=== PATIENT | male | born 1940 | race Caucasian/White ===

== ENCOUNTER 2017-06-06 15:18 | Emergency (ER) | payer OTHER ==
--- OUTSIDE RECORDS SUMMARY | 2017-06-06 15:20 | XMS REPORT | Clinical Summary ---
:1940 Author Organization [facility] Address [address] [place] [address] Care Team Providers Name Role Phone Asked, No Pcp Primary Care Provider Unavailable Allergies No Known Allergies Current Medications Prescription Sig. Disp. Refills Start Date End Date Status losartan-hydrochlorothia Take 1 tablet by Active zide (HYZAAR) 100-12.5 mouth daily. mg per tablet insulin NPH and regular Inject 10 Units Active human (HumuLIN 70/30) under the skin daily 100 unit/mL (70-30) before breakfast. injection insulin NPH and regular Inject 20 Units Active human (HumuLIN 70/30) under the skin. 100 unit/mL (70-30) injection allopurinol (ZYLOPRIM) Take 300 mg by mouth Active 300 MG tablet daily. simvastatin (ZOCOR) 10 Take 10 mg by mouth Active MG tablet nightly. torsemide (DEMADEX) 20 Take 20 mg by mouth Active MG tablet daily. traMADol (ULTRAM) 50 mg Take 50 mg by mouth Active tablet every 6 (six) hours as needed for moderate pain. Active Problems Problem Noted Date Acute decompensated heart failure 08/14/2015 Atrial fibrillation 08/14/2015 Ischemic cardiomyopathy 08/14/2015 Coronary artery disease 08/14/2015 Social History Tobacco Use Types Packs/Day Years Used Date Never Assessed Sex Assigned at Date Recorded Not on file Last Filed Vital Signs Not on file Plan of Treatment Health Maintenance Due Date Last Done Comments SHINGRIX VACCINE (#1) 1988 ZOSTER VACCINE 1998 PNEUMOCOCCAL POLYSACCHARIDE VACCINE AGE 65 AND OVER 11/02/2003 PNEUMOCOCCAL-13 11/02/2003 INFLUENZA VACCINE 09/10/2017 Results Not on fileafter 06/05/2016 Insurance Payer Benefit Plan / Group Subscriber ID Type Phone Address STATE FARM INS STATE FARM INS xxxxxxxxxxxx Commercial MEDICARE MEDICARE PART A AND B xxxxxxxxxx Medicare [place], [place] Home: [phone] [place], [place] [id number]
[2017-06-06 16:24] LABS: Absolute Lymphocytes (CBC) 0.9 K/uL (0.7-4.9); Absolute Monocytes 0.7 K/uL (0.1-1.3); Eosinophils % 5.7 % (0-4.4); Hematocrit 37.7 % (39.6-49.0); Lymphocytes % 23.2 % (15.3-44.8); MCH 30.2 pg (27.0-35.0); MPV 10.4 fL (7.6-11.3); Monocytes % 17.6 % (3.3-12.3); RBC Red Blood Cell Count 4.19 M/uL (4.33-5.43)
[2017-06-06 16:25] LABS: Protime INR 1.48
[2017-06-06 16:30] LABS: Potassium 3.9 mEq/L (3.6-5.0)
[2017-06-06 16:36] LABS: Albumin 3.9 g/dL (3.2-5.5); Bilirubin Direct 0.2 mg/dL (0-0.2); Bilirubin Total 0.8 mg/dL (0.3-1.2); Protein, Total 7.5 g/dL (6.0-8.3)
[2017-06-06 16:39] LABS: CKMB Creatine Kinase MB 3.9 ng/ml (0.3-4.0)
[2017-06-06] MEDS ORDERED: NA CHLORIDE 0.9% 1,000 ML ONE (17:02)
--- NOTE | 2017-06-06 17:49 | RAD REPORT ---
EXAM DESCRIPTION: RAD - Chest Single View - 06/06/2017 3:45 pm CLINICAL HISTORY: Hyperglycemia, diabetes COMPARISON: February 04, 2017 TECHNIQUE: AP portable chest image was obtained 1536 hours . FINDINGS: No peripheral mass or consolidation seen. Lung markings are increased fractionally from th e prior study. No vascular engorgement. Heart size is normal for portable imaging. Pacemaker/defibril lator is in place. Bilateral shoulder prostheses present. No measurable pleural effusion and no pneum othorax. No gross bony abnormality seen. No acute aortic findings suspected. IMPRESSION: Slight increase in the interstitial markings above baseline. Chest findings indicate min imal interstitial edema or infiltrate. No focal mass or consolidation. No significant failure or volume overload.
[2017-06-06 18:29] LABS: Blood Morphology Comment NOT SEEN (NOT SEEN); Platelet Estimate DECR; Urine White Blood Cell Casts OK
[2017-06-06 20:21] LABS: Urine Blood NEGATIVE (NEG); Urine Glucose NEGATIVE (NEG); Urine Protein NEGATIVE (NEG); Urine Specific Gravity 1.015 (1.005-1.030)
[2017-06-06 20:23] LABS: Urine Bacteria <20 /HPF (NONE SEEN); Urine Culture Reflex Order NOT NEEDED; Urine RBC <5 /HPF (NONE SEEN)
[2017-06-06] MEDS ORDERED: FUROSEMIDE 20 MG/ 2ML VIAL ONE (20:34)
--- NOTE | 2017-06-06 20:36 | ER ---
Nurse's Notes [facility] Name: Laureano Valenzuela Age: 76 yrs Sex: Male : 1940 Arrival Date: 06/06/2017 Time: 15:19 Bed 23 Private MD: Diagnosis: Unspecified systolic (congestive) heart failure;Volume depletion;Patient's intentional underdosing of medication regimen Presentation: 06/06 15:20 Presenting complaint: EMS states: States that he has been not feeling well, thirsty, aj1 and having to urinate more often than usual for the past week. FSBS upon EMS arrival was 254. States he has not been checking his blood sugar at home because he ran out of testing strips. Patient is a poor historian, unsure of his medical history other than diabetes and "something with my heart". Transition of care: patient was not received from another setting of care. Onset of symptoms was May 30, 2017. Initial Sepsis Screen: Does the patient meet any 2 criteria? No. Patient's initial sepsis screen is negative. Does the patient have a suspected source of infection? No. Patient's initial sepsis screen is negative. Care prior to arrival: IV initiated. 20 GA, in the right hand, Glucose check: 254. 15:20 Method Of Arrival: EMS: [facility] aj1 15:20 Acuity: [place] 3 aj1 Triage Assessment: 15:28 General: Appears in no apparent distress. comfortable, Behavior is calm, cooperative, aj1 appropriate for age. Pain: Denies pain. Historical: - Allergies: 15:28 Codeine; aj1 15:28 HYDROCODONE; aj1 15:28 Morphine; aj1 15:28 PENICILLINS; aj1 - Home Meds: 19:21 lisinopril 10 mg Oral tab 1 tab once daily [Active]; simvastatin 10 mg Oral tab 1 tab aj1 nightly [Active]; warfarin 3.5 mg Oral once daily [Active]; pantoprazole 40 mg Oral TbEC 1 tab once daily [Active]; Cefuroxime Oral 500 mg twice a day [Active]; allopurinol 300 mg Oral tab 1 tab once daily [Active]; metoclopramide HCl 10 mg Oral tab 1 tab three times a day [Active]; Coreg 25 mg Oral tab 1 tab 2 times per day [Active]; dilaudid pump [Active]; furosemide 40 mg Oral tab 1 tab once daily [Active]; Insulin: Novolin 70/30 Sub-Q 20 units in am and 45 units at night [Active]; - PMHx: 15:28 Back pain; CHF; Chronic pain; COPD; Diabetes - IDDM; Gout; High Cholesterol; aj1 Hypertension; Myocardial infarction; - PSHx: 15:28 pacemaker/defib; Dilaudid pain pump; Appendectomy; shoulder surg; Knee surgery; aj1 - Immunization history:: Adult Immunizations unknown. - Social history:: Smoking status: Patient/guardian denies using tobacco. Screenin:36 Abuse screen: Denies threats or abuse. Denies injuries from another. Nutritional aj1 screening: No deficits noted. Tuberculosis screening: No symptoms or risk factors identified. 20:58 Fall Risk None identified. aj1 Assessment: 15:36 General: Appears in no apparent distress. uncomfortable, Behavior is calm, cooperative. aj1 Pain: Denies pain. Neuro: Level of Consciousness is awake, alert, obeys commands. Cardiovascular: Heart tones S1 S2 present Patient's skin is warm and dry. Respiratory: Airway is patent Respiratory effort is even, unlabored, Respiratory pattern is regular, symmetrical. GI: Abdomen is non-distended, obese. : Reports urinary frequency. EENT: No signs and/or symptoms were reported regarding the EENT system. Derm: No signs and/or symptoms reported regarding the dermatologic system. Skin is pink, warm \\T\\ dry. normal. Musculoskeletal: No signs and/or symptoms reported regarding the musculoskeletal system. Circulation, motion, and sensation intact. 16:10 Reassessment: Patient appears in no apparent distress at this time. No changes from aj1 previously documented assessment. Patient and/or family updated on plan of care and expected duration. Pain level reassessed. Patient is alert, oriented x 3, equal unlabored respirations, skin warm/dry/pink. 17:41 Reassessment: Patient appears in no apparent distress at this time. No changes from aj1 previously documented assessment. Patient and/or family updated on plan of care and expected duration. Pain level reassessed. Patient is alert, oriented x 3, equal unlabored respirations, skin warm/dry/pink. 18:45 Reassessment: Patient and/or family updated on plan of care and expected duration. Pain aj1 level reassessed. General: Appears in no apparent distress. comfortable, Behavior is calm, cooperative. Neuro: Level of Consciousness is awake, alert, obeys commands. Cardiovascular: Patient's skin is warm and dry. Respiratory: Airway is patent Respiratory effort is even, unlabored, Respiratory pattern is regular, symmetrical. Derm: Skin is pink, warm \\T\\ dry. normal. Musculoskeletal: Circulation, motion, and sensation intact. 19:45 Reassessment: Patient appears in no apparent distress at this time. No changes from community hospital previously documented assessment. Patient and/or family updated on plan of care and expected duration. Pain level reassessed. Patient is alert, oriented x 3, equal unlabored respirations, skin warm/dry/pink. 20:58 Reassessment: Patient appears in no apparent distress at this time. No changes from community hospital previously documented assessment. Patient and/or family updated on plan of care and expected duration. Pain level reassessed. Patient is alert, oriented x 3, equal unlabored respirations, skin warm/dry/pink. 21:14 Reassessment: Patient appears in no apparent distress at this time. No changes from community hospital previously documented assessment. Patient and/or family updated on plan of care and expected duration. Pain level reassessed. Patient is alert, oriented x 3, equal unlabored respirations, skin warm/dry/pink. Vital Signs: 15:28 BP 130 / 62; Pulse 76; Resp 17; Temp 98.7(O); Pulse Ox 96% on R/A; Height 5 ft. 9 in. community hospital (175.26 cm); Pain 0/10; 16:09 Weight 103.87 kg; aj1 16:10 BP 131 / 83; Pulse 76; Resp 19; Pulse Ox 95% on R/A; aj1 17:41 BP 138 / 75; Pulse 73; Resp 18; Pulse Ox 96% on R/A; aj1 18:45 BP 148 / 75; Pulse 76; Resp 18; Pulse Ox 95% on R/A; aj1 19:45 BP 145 / 73; Pulse 73; Resp 18; Pulse Ox 96% on R/A; aj1 20:45 BP 151 / 78; Pulse 69; Resp 20; Pulse Ox 95% on R/A; aj1 16:09 Body Mass Index 33.82 (103.87 kg, 175.26 cm) community hospital ED Course: 15:19 Patient arrived in ED. aj1 15:20 Tona Pathak, RN is Primary Nurse. aj1 15:25 Triage completed. aj1 15:28 Arm band placed on. aj1 15:30 Ash[facility] Scrugg[facility]C [facility] snw 15:30 Houston Finn MD is Attending Physician. snw 15:36 Patient has correct armband on for positive identification. Bed in low position. Call aj1 light in reach. Side rails up X 1. 15:36 No provider procedures requiring assistance completed. aj1 15:44 X-ray completed. Portable x-ray completed in exam room. Patient tolerated procedure mh1 well. 15:45 Chest Single View XRAY In Process Unspecified. EDMS 17:44 EKG done, by information technology auditor. reviewed by Ashanti ELLISON. at1 20:58 IV discontinued, intact, bleeding controlled, No redness/swelling at site. Pressure aj1 dressing applied. Administered Medications: 17:20 Drug: NS 0.9% (30 ml/kg) 30 ml/kg Route: IV; Rate: bolus; Site: right antecubital; aj1 20:40 Drug: Lasix 20 mg Route: IVP; Site: right wrist; lorin Point of Care Testing: Blood Glucose: 16:00 Blood Glucose: 252 mg/dL; aj1 19:58 Blood Glucose: 239 mg/dL; aj1 Ranges: Outcome: 20:35 Discharge ordered by MD. snw 21:14 Discharged to home via wheelchair, with family. aj1 21:14 Condition: good 21:14 Discharge instructions given to patient, family, Instructed on discharge instructions, follow up and referral plans. Demonstrated understanding of instructions, follow-up care. 21:15 Patient left the ED. aj1 Signatures: Dispatcher [employer] EDMS Tona Pathak, FENG kinney Ashanti Scruggs FNP-C FNP-Susan Tripathi 1 Мария Camacho RN RN bb gonzales, Amanda, silk top hat body maker EKG Tat1
--- NOTE | 2017-06-06 20:36 | EDPHYS ---
Physician Documentation [facility] Name: Laureano Valenzuela Age: 76 yrs Sex: Male : 1940 Arrival Date: 06/06/2017 Time: 15:19 Bed 23 Private MD: ED Physician Houston Finn HPI: 06/06 17:07 This 76 yrs old Male presents to ER via EMS with complaints of Urinary snw Frequency. 17:07 Onset: The symptoms/episode began/occurred gradually, 1 week(s) ago, and became snw persistent. Associated signs and symptoms: Pertinent positives: polydipsia, polyuria. Modifying factors: the patient symptoms are aggravated by nothing. It is unknown whether or not the patient has had similar symptoms in the past. Dr. Oakes. Historical: - Allergies: 15:28 Codeine; aj1 15:28 HYDROCODONE; aj1 15:28 Morphine; aj1 15:28 PENICILLINS; aj1 - Home Meds: 19:21 lisinopril 10 mg Oral tab 1 tab once daily [Active]; simvastatin 10 mg Oral tab 1 tab aj1 nightly [Active]; warfarin 3.5 mg Oral once daily [Active]; pantoprazole 40 mg Oral TbEC 1 tab once daily [Active]; Cefuroxime Oral 500 mg twice a day [Active]; allopurinol 300 mg Oral tab 1 tab once daily [Active]; metoclopramide HCl 10 mg Oral tab 1 tab three times a day [Active]; Coreg 25 mg Oral tab 1 tab 2 times per day [Active]; dilaudid pump [Active]; furosemide 40 mg Oral tab 1 tab once daily [Active]; Insulin: Novolin 70/30 Sub-Q 20 units in am and 45 units at night [Active]; - PMHx: 15:28 Back pain; CHF; Chronic pain; COPD; Diabetes - IDDM; Gout; High Cholesterol; aj1 Hypertension; Myocardial infarction; - PSHx: 15:28 pacemaker/defib; Dilaudid pain pump; Appendectomy; shoulder surg; Knee surgery; aj1 - Immunization history:: Adult Immunizations unknown. - Social history:: Smoking status: Patient/guardian denies using tobacco. ROS: 17:06 Constitutional: Negative for fever, chills, and weight loss, Eyes: Negative for injury, snw pain, redness, and discharge, ENT: Negative for injury, pain, and discharge, Neck: Negative for injury, pain, and swelling, Cardiovascular: Negative for chest pain, palpitations, and edema, Respiratory: Negative for shortness of breath, cough, wheezing, and pleuritic chest pain, Abdomen/GI: Negative for abdominal pain, nausea, vomiting, diarrhea, and constipation, Back: Negative for injury and pain, MS/Extremity: Negative for injury and deformity, Skin: Negative for injury, rash, and discoloration, Neuro: Negative for headache, weakness, numbness, tingling, and seizure. 17:06 : Positive for urinary frequency, small amounts. Exam: 17:05 Constitutional: This is a well developed, well nourished patient who is awake, alert, snw and in no acute distress. Head/Face: Normocephalic, atraumatic. Eyes: Pupils equal round and reactive to light, extra-ocular motions intact. Lids and lashes normal. Conjunctiva and sclera are non-icteric and not injected. Cornea within normal limits. Periorbital areas with no swelling, redness, or edema. ENT: Nares patent. No nasal discharge, no septal abnormalities noted. Tympanic membranes are normal and external auditory canals are clear. Oropharynx with no redness, swelling, or masses, exudates, or evidence of obstruction, uvula midline. Mucous membranes moist. Neck: Trachea midline, no thyromegaly or masses palpated, and no cervical lymphadenopathy. Supple, full range of motion without nuchal rigidity, or vertebral point tenderness. No Meningismus. Chest/axilla: Normal chest wall appearance and motion. Nontender with no deformity. No lesions are appreciated. Cardiovascular: Regular rate and rhythm with a normal S1 and S2. No gallops, murmurs, or rubs. Normal PMI, no JVD. No pulse deficits. Respiratory: Lungs have equal breath sounds bilaterally, clear to auscultation and percussion. No rales, rhonchi or wheezes noted. No increased work of breathing, no retractions or nasal flaring. Back: No spinal tenderness. No costovertebral tenderness. Full range of motion. Skin: Warm, dry with normal turgor. Normal color with no rashes, no lesions, and no evidence of cellulitis. MS/ Extremity: Pulses equal, no cyanosis. Neurovascular intact. Full, normal range of motion. Neuro: Awake and alert, GCS 15, oriented to person, place, time, and situation. Cranial nerves II-XII grossly intact. Motor strength 5/5 in all extremities. Sensory grossly intact. Cerebellar exam normal. Normal gait. 17:05 Abdomen/GI: Inspection: obese Bowel sounds: normal, Palpation: nontender, in all quadrants, pain pump protrudes from right lateral abdomen. Vital Signs: 15:28 BP 130 / 62; Pulse 76; Resp 17; Temp 98.7(O); Pulse Ox 96% on R/A; Height 5 ft. 9 in. aj1 (175.26 cm); Pain 0/10; 16:09 Weight 103.87 kg; aj1 16:10 BP 131 / 83; Pulse 76; Resp 19; Pulse Ox 95% on R/A; aj1 17:41 BP 138 / 75; Pulse 73; Resp 18; Pulse Ox 96% on R/A; aj1 18:45 BP 148 / 75; Pulse 76; Resp 18; Pulse Ox 95% on R/A; aj1 19:45 BP 145 / 73; Pulse 73; Resp 18; Pulse Ox 96% on R/A; aj1 20:45 BP 151 / 78; Pulse 69; Resp 20; Pulse Ox 95% on R/A; aj1 16:09 Body Mass Index 33.82 (103.87 kg, 175.26 cm) aj1 MDM: 15:30 Patient medically screened. snw 20:37 Data reviewed: vital signs, nurses notes. Data interpreted: Pulse oximetry: on room air snw is 96 %. Interpretation: acceptable. Counseling: I had a detailed discussion with the patient and/or guardian regarding: the historical points, exam findings, and any diagnostic results supporting the discharge/admit diagnosis, the presence of at least one elevated blood pressure reading (>120/80) during this emergency department visit, lab results, radiology results, the need for outpatient follow up, to return to the emergency department if symptoms worsen or persist or if there are any questions or concerns that arise at home. Special discussion: I have referred the patient to see his PCP for further evaluation of high blood pressure. Based on the history and exam findings, there is no indication for further emergent testing or inpatient evaluation. I discussed with the patient/guardian the need to see the primary care provider for further evaluation of the symptoms. 06/06 15:30 Order name: T\T\S; Complete Time: 21:02 06/06 15:30 Order name: Urine Culture [facility] 06/06 15:30 Order name: Urine Microscopic Only; Complete Time: 20:34 06/06 15:30 Order name: Basic Metabolic Panel; Complete Time: 16:40 06/06 15:30 Order name: Blood Culture Adult (2) 06/06 15:30 Order name: BNP; Complete Time: 17:01 06/06 15:30 Order name: CBC with Diff; Complete Time: 18:34 06/06 15:30 Order name: Ckmb; Complete Time: 16:40 06/06 15:30 Order name: CPK; Complete Time: 16:40 06/06 15:30 Order name: Lactate; Complete Time: 16:34 06/06 15:30 Order name: LFT's; Complete Time: 16:40 06/06 15:30 Order name: Procalcitonin; Complete Time: 16:57 06/06 15:30 Order name: Protime (+inr); Complete Time: 16:38 06/06 15:30 Order name: Ptt, Activated; Complete Time: 16:38 06/06 15:30 Order name: Sed Rate; Complete Time: 18:34 06/06 15:30 Order name: Chest Single View XRAY; Complete Time: 18:10 06/06 15:30 Order name: Accucheck; Complete Time: 16:07 06/06 15:30 Order name: Cardiac monitoring; Complete Time: 16:07 06/06 15:30 Order name: EKG - Nurse/Tech; Complete Time: 17:42 06/06 15:30 Order name: IV Saline Lock - Large Bore; Complete Time: 16:07 06/06 15:30 Order name: Labs collected and sent; Complete Time: 16:07 06/06 15:30 Order name: O2 Per Protocol; Complete Time: 16:07 06/06 16:01 Order name: TSH; Complete Time: 17:09 06/06 17:46 Order name: EKG Electrocardiogram EDMS 06/06 18:11 Order name: Troponin (emerg Dept Use Only); Complete Time: 20:34 snw 06/06 18:27 Order name: CBC Smear Scan; Complete Time: 18:34 EDMS 06/06 19:48 Order name: Urine Dipstick--Ancillary (enter results); Complete Time: 20:34 rg2 06/06 21:09 Order name: ABO/RH no charge; Complete Time: 21:31 EDMS 06/06 15:30 Order name: O2 Sat Monitoring; Complete Time: 16:08 snw 06/06 15:30 Order name: Urine Dipstick-Ancillary (obtain specimen); Complete Time: 19:21 snw 06/06 19:11 Order name: FSBS; Complete Time: 19:58 snw 06/06 19:11 Order name: Misc. Order: med list please; Complete Time: 19:33 snw Administered Medications: 17:20 Drug: NS 0.9% (30 ml/kg) 30 ml/kg Route: IV; Rate: bolus; Site: right antecubital; aj1 20:40 Drug: Lasix 20 mg Route: IVP; Site: right wrist; bb Point of Care Testing: Blood Glucose: 16:00 Blood Glucose: 252 mg/dL; aj1 19:58 Blood Glucose: 239 mg/dL; aj1 Ranges: Critical Glucose Levels:Adult <50 mg/dl or >400 mg/dl <40 mg/dl or >180 mg/dl Disposition: 06/06/17 20:35 Discharged to Home. Impression: Unspecified systolic (congestive) heart failure, Volume depletion, Patient's intentional underdosing of medication regimen. - Condition is Stable. - Discharge Instructions: Heart Failure, Dehydration, Adult, Diabetes and Sick Day Management, Form - Daily Weight Record, Rehydration, Adult. - Medication Reconciliation Form, Thank You Letter, Antibiotic Education, Prescription Opioid Use form. - Follow up: Private Physician; When: 2 - 3 days; Reason: Recheck today's complaints, Continuance of care, Re-evaluation by your physician. Follow up: Emergency Department; When: As needed; Reason: Worsening of condition. Addendum: 06/14/2017 20:00 Co-signature as Attending Physician, Houston Finn MD I agree with the assessment and k dr plan of care. Signatures: Dispatcher [employer] EDTona Matta RN RN aj1 Houston Finn MD MD kdr Ashanti Scruggs, PATTERN DUPLICATOR-C PATTERN DUPLICATOR-Csnw Мария Camacho, FENG RN bb Corrections: (The following items were deleted from the chart) 06/06 20:37 20:35 06/06/2017 20:35 Discharged to Home. Impression: Unspecified systolic snw (congestive) heart failure; Volume depletion. Condition is Stable. Forms are Medication Reconciliation Form, Thank You Letter, Antibiotic Education, Prescription Opioid Use. Follow up: Private Physician; When: 2 - 3 days; Reason: Recheck today's complaints, Continuance of care, Re-evaluation by your physician. Follow up: Emergency Department; When: As needed; Reason: Worsening of condition. snw 21:15 20:37 06/06/2017 20:35 Discharged to Home. Impression: Unspecified systolic aj1 (congestive) heart failure; Volume depletion; Patient's intentional underdosing of medication regimen. Condition is Stable. Discharge Instructions: Heart Failure, Dehydration, Adult, Diabetes and Sick Day Management, Form - Daily Weight Record, Rehydration, Adult. Forms are Medication Reconciliation Form, Thank You Letter, Antibiotic Education, Prescription Opioid Use. Follow up: Private Physician; When: 2 - 3 days; Reason: Recheck today's complaints, Continuance of care, Re-evaluation by your physician. Follow up: Emergency Department; When: As needed; Reason: Worsening of condition. snw
[2017-06-06 21:37] VITALS: TEMP 98.7
[2017-06-06 21:43] VITALS: BP 151/78; O2SAT 95
--- NOTE | 2017-06-08 16:16 | EKG ---
Test Date: 2017-06-06 Test Time: 17:37:04 Patient Services Manager: BRUCE MEASUREMENT RESULTS: Intervals: Rate: 72 MT: QRSD: 116 QT: 420 QTc: 459 [place]: P: MT: QRS: 6 T: 91 INTERPRETIVE STATEMENTS: Sinus rhythm Inferior infarct, age undetermined Abnormal ECG Compared to ECG 11/21/2016 22:42:10 T-wave abnormality no longer present Myocardial infarct finding still present Electronically Signed On 06-08-17 16:16:07 CDT by Carlos Manuel Manrique
== END 2017-06-06 21:15 | disposition home or self-care (01) ==
LOC: ER 15:18
DX: I50.20 Unspecified systolic (congestive) heart failure (principal); E11.9 Type 2 diabetes mellitus without complications; E86.9 Volume depletion, unspecified; E78.5 Hyperlipidemia, unspecified; Z91.128 Patient's intentional underdosing of medication regimen for other reason; Z88.6 Allergy status to analgesic agent; Z88.0 Allergy status to penicillin
CPT/HCPCS: 36415; 71045; 80048; 80076; 82550; 82553; 82962 ×2; 83605; 83880; 84145; 84443; 84484; 85025; 85610; 85652; 85730; 86850; 86900; 86901; 87040 ×2; 87086; 87088; 93005; 99284; J1940; J7030; 81003; 81015

== ENCOUNTER 2017-07-13 10:51 | Emergency (ER) | payer OTHER ==
--- OUTSIDE RECORDS SUMMARY | 2017-07-13 10:52 | XMS REPORT | Clinical Summary ---
:1940 Author Organization [facility] Address [address] [place] [address] Care Team Providers Name Role Phone Asked, [...] INFLUENZA VACCINE 09/10/2017 Results Not on fileafter 07/12/2016 Insurance Payer Benefit Plan / Group Subscriber ID Type Phone Address STATE FARM INS STATE FARM INS xxxxxxxxxxxx Commercial MEDICARE MEDICARE PART A AND B xxxxxxxxxx Medicare [place], [place] Home: [phone] [place], [place] [id number]
[2017-07-13 11:30] LABS: Absolute Lymphocytes (CBC) 1.1 K/uL (0.7-4.9); Absolute Monocytes 0.7 K/uL (0.1-1.3); Absolute Neutrophil 4.5 K/uL (1.8-8.0); Eosinophils % 3.3 % (0-4.4); Hematocrit 40.2 % (39.6-49.0); Lymphocytes % 16.2 % (15.3-44.8); MCH 29.9 pg (27.0-35.0); MPV 10.2 fL (7.6-11.3); Monocytes % 10.3 % (3.3-12.3); RBC Red Blood Cell Count 4.42 M/uL (4.33-5.43)
[2017-07-13 11:42] LABS: Bilirubin Direct 0.4 mg/dL (0-0.2); Bilirubin Total 1.1 mg/dL (0.3-1.2); Protein, Total 8.8 g/dL (6.0-8.3)
[2017-07-13 11:59] LABS: CKMB Creatine Kinase MB 2.4 ng/ml (0.3-4.0)
--- NOTE | 2017-07-13 13:18 | RAD REPORT ---
EXAM DESCRIPTION: CT - Stone Protocol - 07/13/2017 12:19 pm CLINICAL HISTORY: Abdominal pain. For 4 days COMPARISON: 2014 TECHNIQUE: Computed axial tomography of the abdomen pelvis was obtained without oral or IV contrast. Lack of IV and oral contrast limits evaluation of solid organs, bowel, and vessels. Coronal reformat gabby images were obtained and reviewed. All CT scans are performed using dose optimization technique as appropriate and may include automated exposure control or mA/KV adjustment according to patient size. FINDINGS: A renal calculus is not seen. An ureteral calculus is not noted. A bladder calculus is not present. Small renal cysts are suspected The most superior slice demonstrates a 5 millimeter right lower lobe nodule. The liver, spleen, pancreas and adrenals appear grossly normal Diverticula stem from the colon. Mild stranding is present adjacent to the distal descending colon. A tiny umbilical hernia is present. A neurostimulator device is in place Spondylosis involves lumbar spine resulting in spinal stenosis IMPRESSION: Negative for a genitourinary calculus Mild descending diverticulitis Per Fleischner guidelines followup CT chest in 6-12 months is recommended
--- NOTE | 2017-07-13 14:21 | ER ---
Nurse's Notes [facility] Name: Laureano Valenzuela Age: 76 yrs Sex: Male : 1940 Arrival Date: 07/13/2017 Time: 10:56 Bed 18 Private MD: Diagnosis: Diverticulitis of intestine, part unspecified, without perforation or abscess without bleeding Presentation: 07/13 10:57 Presenting complaint: EMS states: called out for abd pain that started 4 days ago, em denies N/V, fever, given 50 mcg fentanyl IV. Transition of care: patient was not received from another setting of care. Onset of symptoms was July 09, 2017. Risk Assessment: Do you want to hurt yourself or someone else? Patient reports no desire to harm self or others. Initial Sepsis Screen: Does the patient meet any 2 criteria? No. Patient's initial sepsis screen is negative. Does the patient have a suspected source of infection? No. Patient's initial sepsis screen is negative. Care prior to arrival: Medication(s) given: Fentanyl 50 mcg. 10:57 Method Of Arrival: EMS em 10:57 Acuity: [place] 3 ss Historical: - Allergies: 11:02 Codeine; em 11:02 HYDROCODONE; em 11:02 Morphine; em 11:02 PENICILLINS; em - Home Meds: 11:02 allopurinol 300 mg Oral tab 1 tab once daily [Active]; Cefuroxime Oral 500 mg twice a em day [Active]; Coreg 25 mg Oral tab 1 tab 2 times per day [Active]; dilaudid pump [Active]; furosemide 40 mg Oral tab 1 tab once daily [Active]; Insulin: Novolin 70/30 Sub-Q 20 units in am and 45 units at night [Active]; lisinopril 10 mg Oral tab 1 tab once daily [Active]; metoclopramide HCl 10 mg Oral tab 1 tab three times a day [Active]; pantoprazole 40 mg Oral TbEC 1 tab once daily [Active]; simvastatin 10 mg Oral tab 1 tab nightly [Active]; warfarin 3.5 mg Oral once daily [Active]; - PMHx: 11:02 Back pain; CHF; Chronic pain; COPD; Gout; Diabetes - IDDM; High Cholesterol; em Hypertension; Myocardial infarction; - Immunization history:: Adult Immunizations up to date. - Social history:: Smoking status: Patient/guardian denies using tobacco. - Ebola Screening: : No symptoms or risks identified at this time. Screenin:07 Abuse screen: Denies threats or abuse. Nutritional screening: No deficits noted. em Tuberculosis screening: No symptoms or risk factors identified. Fall Risk None identified. Assessment: 11:11 General: Appears in no apparent distress. uncomfortable, Behavior is calm, cooperative. em Pain: Complains of pain in left lower quadrant Pain currently is 8 out of 10 on a pain scale. Pain began 4 days ago. Neuro: Level of Consciousness is awake, alert, obeys commands, Oriented to person, place, time, situation. Cardiovascular: Capillary refill < 3 seconds Patient's skin is warm and dry. Respiratory: Airway is patent Respiratory effort is even, unlabored, Respiratory pattern is regular, symmetrical. GI: Abdomen is flat, Bowel sounds present X 4 quads. Abd is soft X 4 quads Abdomen is tender to palpation in left lower quadrant. : No signs and/or symptoms were reported regarding the genitourinary system. EENT: No signs and/or symptoms were reported regarding the EENT system. Derm: Skin is intact, Skin is pink, warm \T\ dry. Musculoskeletal: Range of motion: intact in all extremities. 11:15 General: The previous assessment is accurate, call light remains within reach. . ss 12:13 Reassessment: Patient appears in no apparent distress at this time. Patient and/or em family updated on plan of care and expected duration. Pain level reassessed. Patient is alert, oriented x 3, equal unlabored respirations, skin warm/dry/pink. wheeled to CT via stretcher. 13:56 Reassessment: Patient appears in no apparent distress at this time. Patient and/or em family updated on plan of care and expected duration. Pain level reassessed. Patient is alert, oriented x 3, equal unlabored respirations, skin warm/dry/pink. family at bedside. 14:07 Reassessment: Patient appears in no apparent distress at this time. Patient and/or em family updated on plan of care and expected duration. Pain level reassessed. Patient is alert, oriented x 3, equal unlabored respirations, skin warm/dry/pink. Vital Signs: 11:04 BP 140 / 71; Pulse 80; Resp 16; Temp 98.0(O); Pulse Ox 95% on R/A; em 12:00 BP 122 / 71; Pulse 71; Resp 16; Pulse Ox 94% on R/A; em 13:21 BP 128 / 68; Pulse 78; Resp 15; Pulse Ox 95% on R/A; em 14:15 BP 133 / 74; Pulse 76; Resp 14; Pulse Ox 99% on R/A; Pain 2/10; em ED Course: 10:56 Patient arrived in ED. em 11:01 Ashanti Scruggs FNP-C is PHCP. snw 11:01 Nasir Barba MD is Attending Physician. snw 11:03 Arm band placed on. em 11:04 Patient has correct armband on for positive identification. Placed in gown. Bed in low em position. Call light in reach. Side rails up X 1. 11:05 Mau Sood LVN is Primary Nurse. em 11:07 PHCP role handed off by Ashanti Scruggs FNP-C [facility] 11:07 Mckinley Rollins PA is PHCP. jm 11:08 No provider procedures requiring assistance completed. Maintain EMS IV. Dressing em intact. Good blood return noted. Site clean \T\ dry. Gauge \T\ site: 20 RAC. 11:44 Triage completed. ss 12:19 CT Stone Protocol In Process Unspecified. EDMS 12:19 CT completed. Patient tolerated procedure well. Patient moved back from CT. bq 14:20 Addison Oakes MD is Referral Physician. [facility] 14:27 IV discontinued, intact, bleeding controlled, No redness/swelling at site. Pressure em dressing applied. Administered Medications: No medications were administered Outcome: 14:20 Discharge ordered by . [facility] 14:28 Discharged to home via wheelchair. em 14:28 Condition: good 14:28 Discharge instructions given to patient, Instructed on discharge instructions, follow up and referral plans. medication usage, Demonstrated understanding of instructions, follow-up care, medications, Prescriptions given X 2. 14:31 Patient left the ED. em Signatures: Dispatcher [employer] EDMS Ashanti Scruggs FNP-C FNP-Csnw Mckinley Rollins PA PA [facility] Hawa Boudreaux Mau Sood LVN LVN em Smirch, Keerthi, RN RN ss
--- NOTE | 2017-07-13 14:21 | EDPHYS ---
Physician Documentation [facility] Name: Laureano Valenzuela Age: 76 yrs Sex: Male : 1940 Arrival Date: 07/13/2017 Time: 10:56 Bed 18 Private MD: ED Physician Nasir Barba HPI: 07/13 11:12 This 76 yrs old Male presents to ER via EMS with complaints of abdominal pain.jmm 11:12 The patient presents with abdominal pain in the left lower quadrant. Onset: The [facility] symptoms/episode began/occurred gradually, 4 day(s) ago. The symptoms do not radiate. Associated signs and symptoms: Pertinent negatives: nausea and vomiting, chest pain, diarrhea. The symptoms are described as achy. Modifying factors: The symptoms are alleviated by nothing, the symptoms are aggravated by. This is a 76 year old male with a hx of heart failure, DM, HTN that presents to the ED with left lower abdominal pain beginning approx 4 days ago. Patient denies fever, vomiting, diarrhea. Patient denies chest pain. Denies previous episodes. . Historical: - Allergies: 11:02 Codeine; em 11:02 HYDROCODONE; em 11:02 Morphine; em 11:02 PENICILLINS; em - Home Meds: 11:02 allopurinol 300 mg Oral tab 1 tab once daily [Active]; Cefuroxime Oral 500 mg twice a em day [Active]; Coreg 25 mg Oral tab 1 tab 2 times per day [Active]; dilaudid pump [Active]; furosemide 40 mg Oral tab 1 tab once daily [Active]; Insulin: Novolin 70/30 Sub-Q 20 units in am and 45 units at night [Active]; lisinopril 10 mg Oral tab 1 tab once daily [Active]; metoclopramide HCl 10 mg Oral tab 1 tab three times a day [Active]; pantoprazole 40 mg Oral TbEC 1 tab once daily [Active]; simvastatin 10 mg Oral tab 1 tab nightly [Active]; warfarin 3.5 mg Oral once daily [Active]; - PMHx: 11:02 Back pain; CHF; Chronic pain; COPD; Gout; Diabetes - IDDM; High Cholesterol; em Hypertension; Myocardial infarction; - Immunization history:: Adult Immunizations up to date. - Social history:: Smoking status: Patient/guardian denies using tobacco. - Ebola Screening: : No symptoms or risks identified at this time. ROS: 11:12 Constitutional: Negative for fever, chills, and weight loss. [facility] 11:12 Back: Negative for injury and pain. 11:12 Cardiovascular: Negative for chest pain. 11:12 Respiratory: Negative for shortness of breath. 11:12 Abdomen/GI: Positive for abdominal pain, Negative for nausea and vomiting. 11:12 Neuro: Negative for weakness. 11:12 All other systems are negative. Exam: 11:12 Head/Face: atraumatic. [facility] 11:12 Constitutional: The patient appears alert, awake. 11:12 Cardiovascular: Rate: normal, Rhythm: regular. 11:12 Respiratory: the patient does not display signs of respiratory distress, Respirations: normal, Breath sounds: are clear throughout. 11:12 Abdomen/GI: Inspection: distension, that is moderate, Bowel sounds: normal, Palpation: soft, moderate abdominal tenderness, in the left lower quadrant. 11:12 Skin: Appearance: Color: normal in color, Temperature: normal temperature, Moisture: normal moisture. 11:12 Neuro: Orientation: is normal, Mentation: is normal, Memory: is normal. Vital Signs: 11:04 BP 140 / 71; Pulse 80; Resp 16; Temp 98.0(O); Pulse Ox 95% on R/A; em 12:00 BP 122 / 71; Pulse 71; Resp 16; Pulse Ox 94% on R/A; em 13:21 BP 128 / 68; Pulse 78; Resp 15; Pulse Ox 95% on R/A; em 14:15 BP 133 / 74; Pulse 76; Resp 14; Pulse Ox 99% on R/A; Pain 2/10; em MDM: 11:08 Patient medically screened. [facility] 11:12 Differential diagnosis: AAA, diverticulitis, myocardia ischemia or infarction, [facility] Peritonitis, colitis, gastroenteritis. Data reviewed: vital signs, nurses notes. 13:30 Data reviewed: lab test result(s), EKG, radiologic studies, CT scan. [facility] 13:34 Data reviewed: radiologic studies, CT scan. [facility] 13:34 ED course: The patient is currently alert and non toxic in appearance in the ED. The [facility] patient declined admission. Patient will be prescribed oral antibiotics and stated he will follow up with Dr. Oakes tomorrow for reevaluation. The patient is otherwise given return precautions. Patient understood and agrees with the plan of care.. 07/13 11:03 Order name: Amylase, Serum; Complete Time: 11:59 [facility] 07/13 11:03 Order name: Basic Metabolic Panel; Complete Time: 11:59 [facility] 07/13 11:03 Order name: CBC with Diff; Complete Time: 11:59 [facility] 07/13 11:03 Order name: Creatinine for Radiology; Complete Time: 11:59 [facility] 07/13 11:03 Order name: Hepatic Function; Complete Time: 11:59 [facility] 07/13 11:03 Order name: Lipase; Complete Time: 11:59 [facility] 07/13 11:03 Order name: IV Saline Lock; Complete Time: 11: [facility] 07/13 11:03 Order name: Labs collected and sent; Complete Time: 11: [facility] 07/13 11:03 Order name: Blood Culture Adult (2) [facility] 07/13 11:11 Order name: Troponin (emerg Dept Use Only); Complete Time: 11:59 [facility] 07/13 11:11 Order name: CPK; Complete Time: 12:01 [facility] 07/13 11:11 Order name: Ckmb; Complete Time: 12:01 [facility] 07/13 12:00 Order name: CT Stone Protocol; Complete Time: 13:34 [facility] 07/13 11:12 Order name: EKG - Nurse/Tech; Complete Time: 11:30 jm Administered Medications: No medications were administered Disposition: 07/13/17 14:20 Discharged to Home. Impression: Diverticulitis of intestine, part unspecified, without perforation or abscess without bleeding. - Condition is Stable. - Prescriptions for Flagyl 500 mg Oral Tablet - take 1 tablet by ORAL route every 6 hours for 10 days; 40 tablet. Keflex 500 mg Oral Capsule - take 1 capsule by ORAL route every 12 hours for 10 days; 20 capsule. - Medication Reconciliation Form, Thank You Letter, Antibiotic Education, Prescription Opioid Use form. - Follow up: Addison Oakes MD; When: Tomorrow; Reason: Re-evaluation by your physician. - Notes: Please follow up with Dr. Oakes tomorrow for reevaluation. Please return to the ED if you develop increased abdominal pain, vomiting, fever, or any other concerning symptoms. Addendum: 07/17/2017 07:32 Co-signature as Attending Physician, Nasir Barba MD. g s Signatures: Dispatcher [employer] EDAshanti Angeles, DIAL SCREW ASSEMBLER-C DIAL SCREW ASSEMBLER-Csnw Mckinley Rollins PA PA Mau Verma, MAIL DISTRIBUTOR MAIL DISTRIBUTOR em Nasir Barba MD MD Corrections: (The following items were deleted from the chart) 07/13 14:08 11:03 Urine Dipstick-Ancillary ordered. [facility] em 14:31 14:20 07/13/2017 14:20 Discharged to Home. Impression: Diverticulitis of intestine, em part unspecified, without perforation or abscess without bleeding. Condition is Stable. Forms are Medication Reconciliation Form, Thank You Letter, Antibiotic Education, Prescription Opioid Use. Follow up: Addison Oakes; When: Tomorrow; Reason: Re-evaluation by your physician. kala
[2017-07-13 14:42] VITALS: TEMP 98
[2017-07-13 14:46] VITALS: BP 133/74; O2SAT 99
--- NOTE | 2017-07-14 07:38 | EKG ---
Test Date: 2017-07-13 Test Time: 11:37:01 Waste Elimination: DENISSE MEASUREMENT RESULTS: Intervals: Rate: 72 UT: 254 QRSD: 108 QT: 422 QTc: 462 [place]: P: -19 UT: 254 QRS: -9 T: 103 INTERPRETIVE STATEMENTS: Atrial-paced rhythm with prolonged AV conduction with occasional premature ventricular complexes Inferior infarct, age undetermined Abnormal ECG Compared to ECG 06/06/2017 17:37:04 Ventricular premature complex(es) now present Sinus rhythm no longer present Electronically Signed On 07-14-17 07:37:28 CDT by Carlos Manuel Manrique
== END 2017-07-13 14:31 | disposition home or self-care (01) ==
LOC: ER 10:51
DX: K57.92 Diverticulitis of intestine, part unspecified, without perforation or abscess without bleeding (principal); I10 Essential (primary) hypertension; E11.9 Type 2 diabetes mellitus without complications; I50.9 Heart failure, unspecified; J44.9 Chronic obstructive pulmonary disease, unspecified; I25.2 Old myocardial infarction; Z79.01 Long term (current) use of anticoagulants; Z79.4 Long term (current) use of insulin; Z88.0 Allergy status to penicillin; Z88.5 Allergy status to narcotic agent; Z88.6 Allergy status to analgesic agent
CPT/HCPCS: 36415; 74176; 76377; 80048; 80076; 82150; 82550; 82553; 83690; 84484; 85025; 87040; 93005; 99284

== ENCOUNTER 2017-07-21 11:00 | Inpatient (IN) | payer OTHER ==
--- OUTSIDE RECORDS SUMMARY | 2017-07-21 11:02 | XMS REPORT | Clinical Summary ---
:1940 Author Organization [facility] Address [address] [place] [address] Care Team Providers Name Role Phone Asked, [...] INFLUENZA VACCINE 09/10/2017 Results Not on fileafter 07/20/2016 Insurance Payer Benefit Plan / Group Subscriber ID Type Phone Address [employer] FARM INS [employer]ARM INS xxxxxxxxxxxx Commercial MEDICARE MEDICARE PART A AND B xxxxxxxxxx Medicare [place], [place] Home: [phone] [place], [place] [id number]
--- NOTE | 2017-07-21 12:23 | RAD REPORT ---
EXAM DESCRIPTION: CT - Head Brain Wo Cont - 07/21/2017 11:57 am CLINICAL HISTORY: Weakness, lethargy, transient alteration of awareness COMPARISON: CT study June 2017 TECHNIQUE: Axial 5 mm thick images of the head were obtained without IV contrast. All CT scans are performed using dose optimization technique as appropriate and may include automated exposure control or mA/KV adjustment according to patient size. FINDINGS: No intracranial hemorrhage, mass, edema or shift of mid-line structures. No acute cortical based infarction identified. No cortical edema or sulcal effacement. Moderate atrophy and mild to mo derate chronic ischemic changes are present. Ventricular size is in proportion. Physiologic and arter ial calcifications are present. No abnormal extra-axial fluid collections. Intracranial findings are not significantly different since the early June study. Mastoid air cells and visualized portions of the paranasal sinuses are clear. No acute bony findings. IMPRESSION: No hemorrhage or acute intracranial finding. Moderate atrophy and mild to moderate chronic ischemic change similar to June 11, 2017 exam.
[2017-07-21 13:19] LABS: Absolute Lymphocytes (CBC) 1.1 K/uL (0.7-4.9); Absolute Monocytes 0.8 K/uL (0.1-1.3); Absolute Neutrophil 14.2 K/uL (1.8-8.0); Basophils % 0.4 % (0-1.3); Eosinophils % 0.1 % (0-4.4); Hematocrit 36.9 % (39.6-49.0); Lymphocytes % 6.7 % (15.3-44.8); MCH 29.5 pg (27.0-35.0); MCV 91.4 fL (80-100); MPV 10.2 fL (7.6-11.3); Monocytes % 4.7 % (3.3-12.3); RBC Red Blood Cell Count 4.03 M/uL (4.33-5.43)
[2017-07-21 13:27] LABS: Protime INR 3.35
[2017-07-21 13:36] LABS: Potassium 5.2 mEq/L (3.6-5.0)
[2017-07-21 13:45] LABS: Albumin 3.7 g/dL (3.2-5.5); Bilirubin Direct 0.2 mg/dL (0-0.2); Bilirubin Total 0.6 mg/dL (0.3-1.2); CKMB Creatine Kinase MB 4.5 ng/ml (0.3-4.0); Magnesium 1.8 mg/dL (1.8-2.5)
[2017-07-21] MEDS ORDERED: INSULIN -REGULAR HUMAN 50 UNIT/0.5 ML ML ONE (13:52)
[2017-07-21 14:14] LABS: Urine Blood NEGATIVE (NEG); Urine Glucose NEGATIVE (NEG); Urine Protein NEGATIVE (NEG); Urine Specific Gravity 1.015 (1.005-1.030)
[2017-07-21 14:24] LABS: Urine Bacteria <20 /HPF (NONE SEEN); Urine Culture Reflex Order NOT NEEDED; Urine RBC <5 /HPF (NONE SEEN)
--- NOTE | 2017-07-21 15:13 | RAD REPORT ---
EXAM DESCRIPTION: RAD - Chest Single View - 07/21/2017 1:34 pm CLINICAL HISTORY: Weakness, shortness of breath COMPARISON: June 06 TECHNIQUE: AP portable chest image was obtained 1327 hours . FINDINGS: No peripheral mass, consolidation or failure finding. Interstitial markings are prominent but not clearly different. Pacemaker/defibrillator remains in place. Heart and vasculature are normal . No measurable pleural effusion and no pneumothorax. No acute bone finding. Bilateral shoulder joint prostheses are in place. No acute aortic findings suspected. IMPRESSION: No acute cardiopulmonary process. The above detailed chest findings are stable from comparison.
[2017-07-21 15:42] LABS: Blood Morphology Comment NOT SEEN (NOT SEEN)
[2017-07-21 15:43] LABS: Platelet Estimate ADEQ; Urine White Blood Cell Casts OK
--- NOTE | 2017-07-21 16:10 | EKG ---
Test Date: 2017-07-21 Test Time: 11:41:22 Public Health Professor: BRUEC MEASUREMENT RESULTS: Intervals: Rate: 75 VT: 196 QRSD: 114 QT: 412 QTc: 460 [place]: P: -2 VT: 196 QRS: -12 T: 98 INTERPRETIVE STATEMENTS: Normal sinus rhythm Inferior infarct, age undetermined Possible Anterolateral infarct, age undetermined Abnormal ECG Compared to ECG 07/13/2017 11:37:01 Ventricular premature complex(es) no longer present Atrial-paced complex(es) or rhythm no longer present Myocardial infarct finding still present Electronically Signed On 07-21-17 16:09:13 CDT by Carlos Manuel Manrique
--- NOTE | 2017-07-21 17:00 | ER ---
Nurse's Notes [facility] Name: Laureano Valenzuela Age: 76 yrs Sex: Male : 1940 Arrival Date: 07/21/2017 Time: 11:09 Bed 13 Private MD: Diagnosis: Hyperglycemia, unspecified;Weakness;Dehydration Presentation: 07/21 11:16 Presenting complaint: EMS states: increased weakness/ lethargy since this morning. Also ss family reports high blood sugar of 456 then continued to give him his regular dose of insulin. Pt appears drowsy. Arouses easily with verbal stimuli. Hydromorphone pump in place. Transition of care: patient was not received from another setting of care. Onset of symptoms is unknown. Risk Assessment: Do you want to hurt yourself or someone else? Patient reports no desire to harm self or others. Initial Sepsis Screen: Does the patient meet any 2 criteria? Altered Mental Status. Does the patient have a suspected source of infection? No. Patient's initial sepsis screen is negative. Care prior to arrival: Medication(s) given: Normal saline infusion, 500 mL, IV initiated. 20 GA, in the left wrist, Glucose check: 456. 11:16 Method Of Arrival: [facility] 11:16 Acuity: [place] 2 ss Historical: - Allergies: 11:19 Codeine; ss 11:19 HYDROCODONE; ss 11:19 Morphine; ss 11:19 PENICILLINS; ss - PMHx: 11:19 Back pain; CHF; Chronic pain; COPD; Diabetes - IDDM; High Cholesterol; Gout; ss Hypertension; Myocardial infarction; - Immunization history:: Adult Immunizations unknown. - Social history:: Smoking status: Patient/guardian denies using tobacco. - Ebola Screening: : No symptoms or risks identified at this time. Screenin:48 Abuse screen: Denies threats or abuse. Denies injuries from another. Nutritional ph screening: No deficits noted. Tuberculosis screening: No symptoms or risk factors identified. Fall Risk No fall in past 12 months (0 pts). Secondary diagnosis (15 points) impaired mobility, IV access (20 points). Ambulatory Aid- None/Bed Rest/Nurse Assist (0 pts). Gait- Impaired (20 pts.). Mental Status- Oriented to own ability (0 pts). Total Rey Fall Scale indicates High Risk Score (45 or more points). Fall prevention measures have been instituted. Side Rails Up X 2 Placed Close to Nursing Station Frequent Obs/Assessments Occuring As available patient and family educated on Fall Prevention Program and Strategies. Assessment: 11:30 General: Appears in no apparent distress. comfortable, Behavior is calm, cooperative, ph drowsy, Denies fever, feeling ill. Pain: Complains of pain in back. Neuro: Level of Consciousness is obeys commands, lethargic, Oriented to person, place, time, situation, Denies weakness dizziness. Cardiovascular: Denies chest pain, shortness of breath, Capillary refill < 3 seconds in bilateral fingers Patient's skin is warm and dry. Respiratory: Airway is patent Respiratory effort is even, unlabored, Respiratory pattern is regular, symmetrical. GI: No signs and/or symptoms were reported involving the gastrointestinal system. Patient currently denies abdominal pain, diarrhea, nausea, vomiting. Derm: Skin is intact, is fragile, is thin, Skin is pink, warm \\T\\ dry. Musculoskeletal: Circulation, motion, and sensation intact. 12:35 Reassessment: Patient appears in no apparent distress at this time. Patient and/or family updated on plan of care and expected duration. Pain level reassessed. Pt drowsy but awakens easily to verbal stimuli, oriented x 3, placed on bedpan for BM. 12:45 Reassessment: Patient appears in no apparent distress at this time. radiology at bedside for CXR, pt remains on bedpan, states, " It takes me a long time to poop." radiology to will return for CXR after pt completes BM. 13:30 Reassessment: Patient appears in no apparent distress at this time. No changes from previously documented assessment. Patient and/or family updated on plan of care and expected duration. Pain level reassessed. bedpan removed for CXR, no BM noted. 14:20 Reassessment: Patient appears in no apparent distress at this time. No changes from previously documented assessment. Patient and/or family updated on plan of care and expected duration. Pain level reassessed. Pt straight cathed to obtain urine sample, approx 1 L drained from bladder, pt tolerated well. 15:42 Reassessment: Patient appears in no apparent distress at this time. Patient and/or family updated on plan of care and expected duration. Pain level reassessed. Pt had BM in bedpan, brown, soft and normal in appearance, pt cleaned and placed in brief, awaiting room assignment. 17:17 Reassessment: Patient appears in no apparent distress at this time. Patient and/or ph family updated on plan of care and expected duration. Pain level reassessed. Pt awake but remains drowsy, oriented x 4, ERP and hospitalist at bedside, awaiting room assignment. 18:15 Reassessment: Patient appears in no apparent distress at this time. No changes from ph previously documented assessment. Attempted to call report to [facility], placed on hold for approx 5 min. 19:00 Reassessment: Patient appears in no apparent distress at this time. No changes from ph previously documented assessment. Patient and/or family updated on plan of care and expected duration. Pain level reassessed. Pt appears more alert, oriented x 4, respirations even and unlabored, states, " I feel better now than I have in 3 days." VSS, waiting to move to inpatient room after shift change. 19:05 Reassessment: Report received from FENG Ramos. bs1 19:05 General: Appears in no apparent distress. comfortable, Behavior is calm, cooperative, bs1 drowsy, Denies fever. Pain: Complains of pain in back. Neuro: Level of Consciousness is obeys commands, lethargic. Cardiovascular: Denies chest pain, shortness of breath, Heart tones S1 S2 present Capillary refill < 3 seconds Patient's skin is warm and dry. Respiratory: Airway is patent Trachea midline Respiratory effort is even, unlabored, Respiratory pattern is regular, symmetrical, Breath sounds are clear bilaterally. GI: No signs and/or symptoms were reported involving the gastrointestinal system. : No signs and/or symptoms were reported regarding the genitourinary system. Derm: Skin is intact, is fragile, is thin, Skin is pink, warm \\T\\ dry. Musculoskeletal: Circulation, motion, and sensation intact. Capillary refill < 3 seconds. 19:58 Reassessment: Report called to 4th floor, report handed off to FENG Hawkins. bs1 Vital Signs: 11:19 BP 125 / 67; Pulse 81; Resp 16; Temp 98.8(O); Pulse Ox 92% on R/A; Weight 99.79 kg; ss Height 5 ft. 9 in. (175.26 cm); 12:30 BP 126 / 69; Pulse 76; Resp 18; Pulse Ox 98% on 2 lpm NC; ph 13:30 BP 135 / 75; Pulse 78; Resp 16; Pulse Ox 97% on 2 lpm NC; ph 14:30 BP 108 / 59; Pulse 81; Resp 18; Pulse Ox 97% on 2 lpm NC; ph 15:45 BP 110 / 69; Pulse 77; Resp 17; Pulse Ox 95% on 2 lpm NC; jp3 17:18 BP 115 / 62; Pulse 74; Resp 18; Temp 98.6; Pulse Ox 100% on 2 lpm NC; ph 18:59 BP 109 / 57; Pulse 70; Resp 18; Pulse Ox 98% on 2 lpm NC; ph 19:37 BP 142 / 74; Pulse 77; Resp 16; Pulse Ox 99% on 2 lpm NC; mt 20:15 BP 125 / 69; Pulse 77; Resp 16; Temp 98(O); Pulse Ox 99% on R/A; bs1 11:19 Body Mass Index 32.49 (99.79 kg, 175.26 cm) ED Course: 11:09 Patient arrived in ED. ph 11:10 Mario Lozoya, BLACK LEATHER BUFFER is PHCP. pm1 11:10 Kory Martinez MD is Attending Physician. pm1 11:18 Triage completed. ss 11:19 Arm band placed on right wrist. ss 11:28 Rachel Posey, RN is Primary Nurse. ph 11:[address] via stretcher. vr 11:54 EKG done, by farm equipment service technician. reviewed by Mario Lozoya NP. at1 11:57 CT completed. Patient tolerated procedure well. Patient moved back from CT. mw3 11:57 CT Head Brain wo Cont In Process Unspecified. EDMS 12:16 Note: X RAY DELAYED DUE TO PT BEING ON BED R[place]WE[place]. sw 12:38 Note: XRAY DELAYED DUE TO PT BEING ON BED [place], PT STATES THAT IT TAKES HIM A LONG TIME jb2 TO DEFECATE. 12:52 Patient has correct armband on for positive identification. Placed in gown. Bed in low ph position. Call light in reach. Side rails up X2. monitor worker on. Pulse ox on. NIBP on. Warm blanket given. 12:52 Maintain EMS IV. Dressing intact. Site clean \\T\\ dry. Gauge \\T\\ site: 20 L wrist. ph 13:33 X-ray completed. Portable x-ray completed in exam room. Patient tolerated procedure jb2 well. 13:34 XRAY Chest (1 view) In Process Unspecified. EDMS 13:55 Straight cath inserted, using sterile technique, 20 Fr. Specimen obtained. jp3 14:00 Urine collected: straight cath specimen, clear, jun colored. jp3 15:48 No provider procedures requiring assistance completed. Patient admitted, IV remains in ph place. 16:56 Alexis Henry MD is Hospitalizing Provider. pm1 Administered Medications: 14:05 Drug: Insulin Regular Human 10 units {Co-Signature: aj1 (Tona Pathak RN).} Route: ph Sub-Q; Site: right upper arm; 18:23 Follow up: Response: No adverse reaction; Blood sugar is lowered ph 18:22 Drug: NS 0.9% 500 ml Route: IV; Rate: bolus; Site: left hand; ph 19:23 Follow up: Response: No adverse reaction; IV Status: Completed infusion ph 19:23 Drug: Kayexalate 30 grams Route: PO; ph 19:23 Follow up: Response: No adverse reaction ph Point of Care Testing: Blood Glucose: 11:28 Blood Glucose: 317 mg/dL; ph 15:11 Blood Glucose: 350 mg/dL; ph 19:54 Blood Glucose: 262 mg/dL; bs1 Ranges: Outcome: 16:59 Decision to Hospitalize by Provider. pm1 19:59 Admitted to Tele accompanied by tech, via stretcher, room 411, with chart, Report bs1 called to FENG Hawkins 19:59 Condition: stable 19:59 Instructed on the need for admit, Demonstrated understanding of instructions. 20:29 Patient left the ED. bs1 Signatures: Dispatcher [employer] EDMS Chaparro Ruiz jb2 Keerthi Saucedo RN Leora Soni Amanda, library media specialist EKG Tat1 Rachel Posey RN RN Sharri Nuñez Patrick, JASMIN BLACK LEATHER BUFFER pm1 Bailey Gillis mt, Brittany, RN RN bs1 Sheila Hurst mw3 Reynaldo Jasso jp3 Tona Pathak RN aj1
--- NOTE | 2017-07-21 17:00 | EDPHYS ---
Physician Documentation [facility] Name: Laureano Valenzuela Age: 76 yrs Sex: Male : 1940 Arrival Date: 07/21/2017 Time: 11:09 Bed 13 Private MD: ED Physician Kory Martinez HPI: 07/21 17:00 This 76 yrs old Male presents to ER via EMS with complaints of High Blood pm1 Sugar. 17:00 Associated signs and symptoms: Pertinent negatives: chest pain, shortness of breath, pm1 cough, fever, chills. Current symptoms: In the emergency department the patient's symptoms Feels his normal self but weak. The patient has not recently seen a physician, the patient's primary care provider is Dr. Oakes, Web Marketing Specialist Smith. Patient brought to the emergency department with complaints of high blood sugar today and weakness. Patient reports for the past three days that he has been unable to get around and walk as he normally does. Family member, his daughter lives with him and has difficulty with assisting him with moving around. Historical: - Allergies: 11:19 Codeine; ss 11:19 HYDROCODONE; ss 11:19 Morphine; ss 11:19 PENICILLINS; ss - PMHx: 11:19 Back pain; CHF; Chronic pain; COPD; Diabetes - IDDM; High Cholesterol; Gout; ss Hypertension; Myocardial infarction; - Immunization history:: Adult Immunizations unknown. - Social history:: Smoking status: Patient/guardian denies using tobacco. - Ebola Screening: : No symptoms or risks identified at this time. ROS: 17:00 Constitutional: Negative for fever, chills, and weight loss. pm1 17:00 Eyes: Negative for injury, pain, redness, and discharge, ENT: Negative for injury, pain, and discharge, Neck: Negative for injury, pain, and swelling, Cardiovascular: Negative for chest pain, palpitations, and edema, Respiratory: Negative for shortness of breath, cough, wheezing, and pleuritic chest pain, Abdomen/GI: Negative for abdominal pain, nausea, vomiting, diarrhea, and constipation, Back: Negative for injury and pain, : Negative for injury, bleeding, discharge, and swelling, MS/Extremity: Negative for injury and deformity, Skin: Negative for injury, rash, and discoloration. 17:00 Neuro: Positive for weakness, Negative for headache, numbness, tingling. Exam: 17:00 Constitutional: This is a well developed, well nourished patient who is awake, alert, pm1 and in no acute distress. Head/Face: Normocephalic, atraumatic. Eyes: Pupils equal round and reactive to light, extra-ocular motions intact. Lids and lashes normal. Conjunctiva and sclera are non-icteric and not injected. Cornea within normal limits. Periorbital areas with no swelling, redness, or edema. Neck: Trachea midline, no thyromegaly or masses palpated, and no cervical lymphadenopathy. Supple, full range of motion without nuchal rigidity, or vertebral point tenderness. No Meningismus. Chest/axilla: Normal chest wall appearance and motion. Nontender with no deformity. No lesions are appreciated. Cardiovascular: Regular rate and rhythm with a normal S1 and S2. No gallops, murmurs, or rubs. No pulse deficits. Respiratory: Lungs have equal breath sounds bilaterally, clear to auscultation and percussion. No rales, rhonchi or wheezes noted. No increased work of breathing, no retractions or nasal flaring. Abdomen/GI: Soft, non-tender, with normal bowel sounds. No distension or tympany. No guarding or rebound. No evidence of tenderness throughout. Pain pump present on right lower abdomen Back: No spinal tenderness. No costovertebral tenderness. Full range of motion. Skin: Warm, dry with normal turgor. Normal color with no rashes, no lesions, and no evidence of cellulitis. MS/ Extremity: Pulses equal, no cyanosis. Neurovascular intact. Full, normal range of motion. 17:00 ENT: External ear(s): are unremarkable, Ear canal(s): are normal, TM's: are normal, Nose: is normal, Mouth: Lips: cracked, Oral mucosa: dry, Posterior pharynx: is normal, no acute changes. 17:00 Neuro: Orientation: is normal, Motor: moves all fours. Vital Signs: 11:19 BP 125 / 67; Pulse 81; Resp 16; Temp 98.8(O); Pulse Ox 92% on R/A; Weight 99.79 kg; ss Height 5 ft. 9 in. (175.26 cm); 12:30 BP 126 / 69; Pulse 76; Resp 18; Pulse Ox 98% on 2 lpm NC; ph 13:30 BP 135 / 75; Pulse 78; Resp 16; Pulse Ox 97% on 2 lpm NC; ph 14:30 BP 108 / 59; Pulse 81; Resp 18; Pulse Ox 97% on 2 lpm NC; ph 15:45 BP 110 / 69; Pulse 77; Resp 17; Pulse Ox 95% on 2 lpm NC; jp3 17:18 BP 115 / 62; Pulse 74; Resp 18; Temp 98.6; Pulse Ox 100% on 2 lpm NC; ph 18:59 BP 109 / 57; Pulse 70; Resp 18; Pulse Ox 98% on 2 lpm NC; ph 19:37 BP 142 / 74; Pulse 77; Resp 16; Pulse Ox 99% on 2 lpm NC; mt 20:15 BP 125 / 69; Pulse 77; Resp 16; Temp 98(O); Pulse Ox 99% on R/A; bs1 11:19 Body Mass Index 32.49 (99.79 kg, 175.26 cm) ss MDM: 11:14 Patient medically screened. pm1 16:55 Data reviewed: vital signs. Data interpreted: Pulse oximetry: on room air is 95 %. pm1 Interpretation: normal. Counseling: I had a detailed discussion with the patient and/or guardian regarding: the need for further work-up and treatment in the hospital. 07/21 11:32 Order name: Basic Metabolic Panel; Complete Time: 15:12 pm1 07/21 11:32 Order name: BNP; Complete Time: 15:12 pm07/21 11:32 Order name: CBC with Diff; Complete Time: 15:58 pm07/21 11:32 Order name: Ckmb; Complete Time: 15:12 pm07/21 11:32 Order name: CPK; Complete Time: 15:12 pm07/21 11:32 Order name: LFT's; Complete Time: 15:12 pm07/21 11:32 Order name: Magnesium; Complete Time: 15:12 pm1 07/21 11:32 Order name: PT-INR; Complete Time: 13:38 pm1 07/21 11:32 Order name: Ptt, Activated; Complete Time: 13:38 pm1 07/21 11:32 Order name: Troponin (emerg Dept Use Only); Complete Time: 15:12 pm1 07/21 11:40 Order name: Urine Microscopic Only pm1 07/21 11:41 Order name: Urine Microscopic Only; Complete Time: 15:13 EDMS 07/21 12:17 Order name: Glucose, Ancillary Testing; Complete Time: 13:38 EDMS 07/21 13:23 Order name: CBC Smear Scan; Complete Time: 15:58 EDMS 07/21 11:32 Order name: XRAY Chest (1 view); Complete Time: 15:58 pm1 07/21 11:32 Order name: EKG; Complete Time: 11:33 pm1 07/21 11:32 Order name: Cardiac monitoring; Complete Time: 12:03 pm1 07/21 11:32 Order name: EKG - Nurse/Tech; Complete Time: 12:03 pm1 07/21 11:32 Order name: IV Saline Lock; Complete Time: 12:03 pm1 07/21 11:32 Order name: Labs collected and sent; Complete Time: 20:05 pm1 07/21 11:32 Order name: O2 Per Protocol; Complete Time: 12:03 pm1 07/21 11:32 Order name: O2 Sat Monitoring; Complete Time: 12:03 pm1 07/21 11:32 Order name: Urine Dipstick-Ancillary (obtain specimen); Complete Time: 14:11 pm1 07/21 11:32 Order name: CT Head Brain wo Cont; Complete Time: 13:38 pm1 07/21 13:41 Order name: Straight Cath - Urine; Complete Time: 14:11 pm1 07/21 14:09 Order name: Urine Dipstick--Ancillary (enter results) 07/21 14:09 Order name: Urine Dipstick-Ancillary; Complete Time: 15:13 EDMS Administered Medications: 14:05 Drug: Insulin Regular Human 10 units {Co-Signature: aj1 (Tona Pathak RN).} Route: ph Sub-Q; Site: right upper arm; 18:23 Follow up: Response: No adverse reaction; Blood sugar is lowered ph 18:22 Drug: NS 0.9% 500 ml Route: IV; Rate: bolus; Site: left hand; ph 19:23 Follow up: Response: No adverse reaction; IV Status: Completed infusion ph 19:23 Drug: Kayexalate 30 grams Route: PO; ph 19:23 Follow up: Response: No adverse reaction ph Point of Care Testing: Blood Glucose: 11:28 Blood Glucose: 317 mg/dL; ph 15:11 Blood Glucose: 350 mg/dL; ph 19:54 Blood Glucose: 262 mg/dL; bs1 Ranges: Critical Glucose Levels:Adult <50 mg/dl or >400 mg/dl <40 mg/dl or >180 mg/dl Disposition: 07/22 10:52 Co-signature as Attending Physician, Kory Martinez MD I agree with the assessment and bernice plan of care. Disposition: 07/21/17 16:59 Hospitalization ordered by Alexis Henry for Observation. Preliminary diagnosis are Hyperglycemia, unspecified, Weakness, Dehydration. - Bed requested for Telemetry/MedSurg (observation). - Status is Observation. bs1 - Condition is Stable. - Problem is new. - Symptoms have improved. UTI on Admission? No Signatures: Dispatcher [employer] Belem Altamirano RN RN dw Anderson, Corey, MD MD cha Smirch, Shelby, RN RN Rachel Posey RN RN Mario Lozoya, JASMIN LOAD MANAGER pm1 Ariane Gonzalez RN RN bs1 Tona Pathak RN aj1 Corrections: (The following items were deleted from the chart) 07/21 18:04 16:59 Hospitalization Ordered by Alexis Henry MD for Observation. Preliminary diagnosis dw is Hyperglycemia, unspecified; Weakness; Dehydration. Bed requested for Telemetry/MedSurg (observation). Status is Observation. Condition is Stable. Problem is new. Symptoms have improved. UTI on Admission? No. pm1 20:29 18:04 07/21/2017 16:59 Hospitalization Ordered by Alexis Henry MD for Observation. bs1 Preliminary diagnosis is Hyperglycemia, unspecified; Weakness; Dehydration. Bed requested for Telemetry/MedSurg (observation). Status is Observation. Condition is Stable. Problem is new. Symptoms have improved. UTI on Admission? No. dw
[2017-07-21] MEDS ORDERED: NA CHLORIDE 0.9% 500 ML ONE (18:06)
[2017-07-21] MEDS ORDERED: SOD POLYSTYREN SUL 15 GM/60 ML UCUP ONE (18:06)
--- NOTE | 2017-07-21 18:09 | P.HP ---
Certification for Inpatient Patient admitted to: Observation With expected LOS: <2 Midnights Patient will require the following post-hospital care: None Practitioner: I am a practitioner with admitting privileges, knowledge of patient current condition, hospital course, and medical plan of care. Services: Services provided to patient in accordance with Admission requirements found in Title 42 Section 412.3 of the Code of Federal Regulations <Scotty Bonilla - Last Filed: 07/21/17 18:02> Patient History Date of Service: 07/21/17 Primary Care Provider: Dr. Oakes Reason for admission: Hyperglycemia, general weakness, hyperkalemia History of Present Illness: This is a 68-year-old male that had come to the ER via EMS after intermediate called for general weakness and lethargy for the last couple days. Family stated that his blood sugars have been running high and has appeared more drowsy lately. Patient stated that he just feels weak but denies any other complaints. Patient with a history of chronic back pain congestive heart failure, COPD, diabetes, high cholesterol, gout, hypertension, [place]. It was noted on labs today that he has a small elevation in his troponin of 0.05. Patient also with a known history of renal insufficiency. Hyperkalemia was discovered secondary to the renal insufficiency has been treated down in the emergency room. Patient was also seen to have an elevated white cell count. Patient denies any cough, runny nose, fevers, congestion, and shortness of breath. Patient denies any nausea, vomiting, abdominal pain, diarrhea, or urinary complaints. Patient is not on steroid therapy Home medications list reviewed: Yes - Past Medical/Surgical History Has patient received pneumonia vaccine in the past: Yes Diabetic: Yes -: CAD -: HTN -: DM -: Chronic pain -: Hyperlipidemia -: DM Neuropathy -: Gout -: Osteoarthritis -: pacemaker -: sx for pain pump insertion -: shoulder replacement BL -: L Knee replacement -: appendectemy -: CARDIAC STENTS -: PACEMAKER Psychosocial/ Personal History: , 3 children, Retired - Family History Father -: Lung disease, Cancer Mother -: Heart disease, Hypertension, Kidney disease - Social History Smoking Status: Former smoker Smoking therapy provided: No Alcohol use: No CD- Drugs: No Caffeine use: Yes <Scotty Bonilla - Last Filed: 07/21/17 18:02> Date of Service: 07/22/17 - Family History Father -: Lung disease, Cancer Mother -: Heart disease, Hypertension, Kidney disease Sister -: Heart disease <Alexis Henry - Last Filed: 07/22/17 16:14> Allergies codeine [Codeine] Allergy (Mild, Verified 07/21/17 21:57) Itching/Hives/Rash hydrocodone [Hydrocodone] Allergy (Mild, Verified 07/21/17 21:57) Itching/Hives/Rash morphine Allergy (Mild, Verified 07/21/17 21:57) Itching/Hives/Rash oxycodone [Oxycodone] Allergy (Mild, Verified 07/21/17 21:57) Itching/Hives/Rash Penicillins Allergy (Mild, Verified 07/21/17 21:57) Itching/Hives/Rash Hydrocodone Allergy (Uncoded 07/21/17 21:57) Unknown Hydrocodone-Alexi Allergy (Uncoded 11/22/16 02:06) Unknown Home Medications: Allopurinol [Zyloprim] 300 mg PO DAILY 07/22/17 Carvedilol [Coreg] 25 mg PO DAILY 07/22/17 Furosemide [Lasix] 40 mg PO BID 07/22/17 Gabapentin [Gralise] 300 mg PO TID 07/22/17 Metoclopramide HCl [Reglan] 10 mg PO TID 07/22/17 Pantoprazole Sodium 40 mg PO DAILY 07/22/17 Spironolactone [Aldactone] 50 mg PO DAILY 07/22/17 Warfarin Sodium [Coumadin] 5 mg PO DAILY 07/22/17 metroNIDAZOLE [Metronidazole] 500 mg PO BID 07/22/17 Review of Systems General: Weakness, Malaise Eyes: Unremarkable ENT: Unremarkable Respiratory: Unremarkable Cardiovascular: Unremarkable Gastrointestinal: Unremarkable Musculoskeletal: Unremarkable Integumentary: Unremarkable Neurological: Unremarkable Lymphatics: Unremarkable <Scotty Bonilla - Last Filed: 07/21/17 18:02> Physical Examination - Vital Signs Temperature: 98.8 F Blood Pressure: 125/67 Pulse: 81 Respirations: 16 Pulse Ox (%): 97 - Physical Exam General: Alert, Oriented x3, Cooperative HEENT: Normocephalic, PERRLA, Other (Mucous membranes dry), EOMI Neck: Supple, 2+ carotid pulse no bruit, JVD not distended, No Thyromegaly Respiratory: Clear to auscultation bilaterally, Normal air movement Cardiovascular: No edema, Normal pulses, Regular rate/rhythm, Normal S1 S2, No gallops, No rubs, No murmurs Capillary refill: <2 Seconds Gastrointestinal: Normal bowel sounds, Soft and benign, Non-distended, No tenderness Musculoskeletal: No clubbing, No swelling, No contractures, No erythema, No tenderness, No warmth Integumentary: No rashes, No breakdown, No significant lesion, No tenderness/ swelling, No erythema, No warmth, No cyanosis Neurological: Normal speech, Normal strength at 5/5 x4 extr, Normal tone, Sensation intact, Cranial nerves 3-12 intact, Normal reflexes 2+, Normal affect - Studies Laboratory Data (last 24 hrs) 07/21/17 13:02: PT 40.0 H, INR 3.35, APTT 34.9 07/21/17 13:02: WBC 16.2 H D, Hgb 11.9 L, Hct 36.9 L, Plt Count 172 07/21/17 13:02: B-Natriuretic Peptide 103 H 07/21/17 13:02: Sodium 128 L, Potassium 5.2 H, BUN 69 H D, Creatinine 2.87 H, Glucose 408 H*, Magnesium 1.8, Total Bilirubin 0.6, AST 27, ALT 18, Alkaline Phosphatase 56 <Scotty Bonilla - Last Filed: 07/21/17 18:02> Assessment and Plan - Problems (Diagnosis) (1) Hyperglycemia due to type 2 diabetes mellitus Current Visit: Yes Status: Acute Plan: Patient's sugars will be monitored and will be put on a moderate sliding scale. Will adjust as needed. Will have repeat BMP to follow pseudohyponatremia Qualifiers: Diabetes mellitus long-term insulin use: with long-term use Qualified Code( s): E11.65 - Type 2 diabetes mellitus with hyperglycemia; Z79.4 - lobsterman ( current) use of insulin (2) Dehydration Current Visit: Yes Status: Acute Plan: Patient will be given IV hydration along with oral hydration (3) Hyperkalemia Current Visit: Yes Status: Acute Plan: Patient given Kayexalate, PO Lasix, insulin to combat against hyperkalemia. Will reassess BMP to ensure that the potassium has dropped. Nephrology has been consulted (4) Elevated troponin Current Visit: Yes Status: Acute Plan: Cardiology has been consulted for elevated troponin. Currently patient has no chest pain or shortness of breath. This is more than likely due to chronic renal insufficiency and congestive heart failure although it will be trended to ensure that is not elevate. (5) Chronic anticoagulation Current Visit: No Status: Chronic Plan: Patient will have continued anticoagulation while he is here in the hospital. INR will be evaluated (6) Hypertension Onset Date: 01/16/15 Current Visit: No Status: Acute Plan: Patient will be given blood pressure medicine bottles we checked daily. Medicine will be adjusted as needed Qualifiers: Hypertension type: essential hypertension Qualified Code(s): I10 - Essential (primary) hypertension (7) Hyponatremia Onset Date: 11/22/16 Current Visit: No Status: Acute Plan: BMP will be checked daily. After hyperglycemia is reduced hyponatremia should normalize (8) Renal insufficiency Current Visit: No Status: Acute Plan: Nephrology has been consulted for chronic kidney disease and hyperkalemia. - Plan Patient appears mildly dehydrated and has a markedly elevated blood sugar which can contribute to his general weakness and fatigue. After IV hydration and normalization of sugar patient be reassessed tomorrow. If the patient is feeling better. Goal is to discharge home. Cardiology and nephrology consults will still be assessed. Will assess for continued troponin elevation as well. Discharge Plan: Group Home Plan to discharge in: 24 Hours - Advance Directives Does patient have a Living Will: Yes Does patient have a Durable POA for Healthcare: Yes <Scotty Bonilla - Last Filed: 07/21/17 18:02> - Plan Patient seen and examined. Agree with A&P. <Alexis Henry - Last Filed: 07/22/17 16:14>
[2017-07-21] MEDS ORDERED: ONDANSETRON 4 MG/2 ML VIAL IV PRN (20:48)
[2017-07-21] MEDS ORDERED: SODIUM CHLORIDE 0.9% 10ML INJ IV PRN (20:48)
[2017-07-21] MEDS ORDERED: D50W 25 GM/50 ML SYRINGE IV PRN (20:48)
[2017-07-21] MEDS ORDERED: GLUCAGON 1 MG/VIAL IM PRN (20:48)
[2017-07-21] MEDS ORDERED: IPRATROPIUM BROM 0.5MG/2.5ML NEB PRN (20:48)
[2017-07-21] MEDS ORDERED: ALBUTEROL 2.5 MG/3 ML NEB SOL NEB PRN (20:48)
[2017-07-21] MEDS: INSULIN -REGULAR HUMAN 50 UNIT/0.5 ML ML SQ SCH (21:31)
[2017-07-21] MEDS: NA CHLORIDE 0.9% 1,000 ML IV SCH (21:32)
[2017-07-22 00:10] LABS: A1c Component 0.86 mg/dL; Hemoglobin A1c 8.7 % (4-6.0)
[2017-07-22 04:45] LABS: Absolute Lymphocytes (CBC) 1.2 K/uL (0.7-4.9); Absolute Monocytes 0.9 K/uL (0.1-1.3); Absolute Neutrophil 6.1 K/uL (1.8-8.0); Basophils % 0.6 % (0-1.3); Eosinophils % 1.9 % (0-4.4); Hematocrit 32.4 % (39.6-49.0); Lymphocytes % 14.8 % (15.3-44.8); MCH 31.2 pg (27.0-35.0); MCV 90.1 fL (80-100); MPV 9.7 fL (7.6-11.3); Monocytes % 10.3 % (3.3-12.3)
[2017-07-22 04:59] LABS: Potassium 3.4 mEq/L (3.6-5.0)
[2017-07-22 05:40] LABS: Protime INR 4.05
--- NOTE | 2017-07-22 07:30 | CON ---
Date of Consultation: 07/22/2017 The patient was admitted by Dr. Goodman on 07/21/2017. I saw the patient on 07/22/2017. Reason For Consultation: Elevated troponin. History Of Present Illness: Mr. Valenzuela is a 76-year-old white male who is very well known to me. He has a very extensive past history. He has a history of chronic systolic congestive heart failure, st atus post defibrillator and biventricular pacemaker. He has a history of coronary artery disease sta tus post circumflex stent that is stable. Has a history of hypertension, dyslipidemia, COPD, renal i nsufficiency, and diabetes. He came in with weakness. Glucose was found to be over 400. His creati nine was 2.87, his potassium was 5.2, his sodium 128, his troponin 0.05, and his BNP was 103. His IN R was 3.3[place] [id number]. He has had some cough and chills. His cough is nonproduc tive. He denied any congestive heart failure symptoms. He denied any chest pain. Allergies: TO IODINE, MORPHINE, AND PENICILLIN. Review of Systems: Negative. Social History: Negative Family History: Noncontributory. Medications: At home include Coumadin, aspirin, allopurinol, Zocor, insulin, Lasix, Coreg. Physical Examination: General: He was in no acute distress. Vital Signs: Stable. He was afebrile. He was in sinus rhythm. HEENT: Negative. Neck: Supple. No bruit, lymphadenopathy, JVD, or thyromegaly. Chest: Clear to auscultation and percussion. Cardiac: Revealed a regular rhythm and rate with an S3, gallops. Abdomen: Benign. Extremities: Revealed trace edema. Diagnostic Data: As stated earlier. Impression And Plan: 1.Weakness, hyperkalemia, hyponatremia all secondary to his hyperglycemia and diabetes. 2.Elevated creatinine, chronic renal insufficiency with acute exacerbation, probably secondary to hy perglycemia and dehydration. 3.Anticoagulation status with an adequate INR of 3.3. 4.Elevated white count with cough. He had a negative chest x-ray, negative EKG, negative CT of the abdomen, negative CT of the head. He may have a viral syndrome. His other problems include chronic systolic congestive heart failure, status post defibrillator; hypertension; dyslipidemia; coronary ar cricket disease; and chronic obstructive pulmonary disease, all of which are stable. I am not concerned about his elevated troponin at all with his glucose being so high and his renal in sufficiency. I think we need to treat him with antibiotics, being careful not to elevated the INR. He needs to be gently hydrated, very carefully with his congestive heart failure. He needs to have h is medication at home continued especially the Coreg. The Lasix may be necessary to be held for a wh ile. We will watch his creatinine and white count. I would not embark on any more cardiac workup on him. He has had multiple echoes and stress test in my office. We will continue to follow Mr. Valenzuela . CARLIN/VERO Voice ID: [id number] Report ID: [id number]
[2017-07-22] MEDS: ALLOPURINOL 300 MG TAB PO SCH (08:56)
[2017-07-22] MEDS: INSULIN -REGULAR HUMAN 50 UNIT/0.5 ML ML SQ SCH ×4 (08:56→20:48)
[2017-07-22] MEDS: INSULIN DETEMIR 100 UNIT/1 ML INSULIN SQ SCH (08:57)
[2017-07-22] MEDS ORDERED: PANTOPRAZOLE 40 MG INJ IVP SCH (09:00)
[2017-07-22] MEDS ORDERED: FUROSEMIDE 40 MG TABLET PO SCH (09:00)
[2017-07-22] MEDS ORDERED: HOME MED 1 EA UNK (Gabapentin [Gralise] 300 MG) PO SCH (14:00)
--- NOTE | 2017-07-22 14:08 | P.PN ---
Subjective Date of Service: 07/22/17 Primary Care Provider: Dr. Oakes Chief Complaint: Hyperglycemia, general weakness, hyperkalemia Subjective: Improving (The patient improved. No significant chest pain, shortness of breath. Patient did work with physical therapy today.) Physical Examination - Vital Signs Temperature: 96.9 F Blood Pressure: 120/58 Pulse: 76 Respirations: 18 Pulse Ox (%): 94 - Physical Exam General: Alert, In no apparent distress, Oriented x3, Cooperative HEENT: Atraumatic, Mucous membr. moist/pink Neck: Supple Respiratory: Clear to auscultation bilaterally, Normal air movement Cardiovascular: Normal pulses, Regular rate/rhythm Gastrointestinal: Normal bowel sounds, Soft and benign, Non-distended, No tenderness, No masses, No rebound, No guarding Musculoskeletal: No erythema, No tenderness, No warmth Integumentary: No tenderness/swelling, No erythema, No warmth, No cyanosis Neurological: Normal speech, Normal strength at 5/5 x4 extr, Normal tone, Normal affect - Studies Medications List Reviewed: Yes Assessment & Plan - Problems (Diagnosis) (1) Ventricular tachycardia Current Visit: Yes Status: Acute Plan: Patient had a short run of V-tach today. Is likely from electrolyte imbalance. Will monitor and replace electrolytes. Will monitor closely. Spoke with cardiology no intervention needed. (2) Dehydration Onset Date: 07/22/17 Current Visit: Yes Status: Acute Plan: Patient appeared dehydrated. Patient with acute on chronic renal disease. Nephrology consulted. Will hold Lasix and Aldactone today. This can be restarted tomorrow. Anticipate discharge home tomorrow. Will have physical therapy continue to work with patient. Will continue with IV fluids at a lower rate. Will recheck chest x-ray in the morning. Will wean off oxygen. Case discussed with nephrology and cardiology. (3) Elevated troponin Onset Date: 07/22/17 Current Visit: Yes Status: Acute Plan: No intervention needed at this time. Will monitor closely. Patient has been evaluated by any brisket puller in past. Case discussed with cardiology. (4) Chronic anticoagulation Onset Date: 07/22/17 Current Visit: Yes Status: Chronic Plan: INR slightly super therapeutic. Will continue monitor and adjust appropriately. Will hold Coumadin if greater than INR 3.0 (5) GERD (gastroesophageal reflux disease) Onset Date: 11/22/16 Current Visit: No Status: Acute Plan: Will continue with Protonix. Qualifiers: Esophagitis presence: esophagitis presence not specified (6) Atrial fibrillation Onset Date: 11/22/16 Current Visit: No Status: Chronic Plan: Patient with history of chronic atrial fibrillation. Will continue with rate control medication-carvedilol. Patient with history of defibrillator. Qualifiers: Atrial fibrillation type: chronic Qualified Code(s): I48.2 - Chronic atrial fibrillation (7) CAD (coronary artery disease) Onset Date: 11/22/16 Current Visit: No Status: Chronic Plan: Continue with medication. Will monitor closely. Qualifiers: Coronary Disease-Associated Artery/Lesion type: [place] artery [place] vs. transplanted heart: [place] heart Associated angina: without angina Qualified Code(s): I25.10 - Atherosclerotic heart disease of [place] coronary artery without angina pectoris (8) CHF (congestive heart failure) Current Visit: No Status: Chronic Plan: Patient with history of systolic congestive heart failure. Will hold Lasix and Aldactone today due to dehydration. Will restart tomorrow. Anticipate discharge tomorrow. Qualifiers: Qualified Code(s): I50.23 - Acute on chronic systolic (congestive) heart failure (9) Diabetes mellitus Onset Date: 01/16/15 Current Visit: No Status: Chronic Plan: Patient appears non compliant with medication. He is using insulin 70/30 . He reports that he uses insulin 70/30 about 25 units subcu twice daily. Will start Levemir today. Will continue sliding scale. Patient will need close follow up with PCP and likely with Endocrinology in outpatient to further monitor and control. Qualifiers: Diabetes mellitus type: type 2 Diabetes mellitus rodent exterminator insulin use: with rodent exterminator use Diabetes mellitus complication status: with hyperglycemia Qualified Code(s): E11.65 - Type 2 diabetes mellitus with hyperglycemia; Z79.4 - rodent exterminator (current) use of insulin (10) Hyperlipidemia Onset Date: 01/16/15 Current Visit: No Status: Chronic Plan: Continue with medication Qualifiers: Hyperlipidemia type: mixed hyperlipidemia Qualified Code(s): E78.2 - Mixed hyperlipidemia (11) Hypokalemia Current Visit: Yes Status: Acute Plan: Will monitor and replace appropriately. Lasix and Aldactone held today. (12) Anemia Current Visit: Yes Status: Chronic Plan: Likely chronic disease. Will monitor closely. Qualifiers: Anemia type: other cause Other causes of anemia: chronic disease, other Qualified Code(s): D63.8 - Anemia in other chronic diseases classified elsewhere (13) Chronic renal disease Current Visit: Yes Status: Acute Plan: Acute on chronic renal disease noted. Case discussed with nephrology. Will hold Lasix and Aldactone today. Will restart tomorrow. Continue with IV fluids slowly. Qualifiers: Chronic kidney disease stage: stage 3 (moderate) Qualified Code(s): N18.3 - Chronic kidney disease, stage 3 (moderate) (14) Hyponatremia Onset Date: 11/22/16 Current Visit: No Status: Acute Plan: Patient dehydrated. Continue with fluids. (15) Obesity Current Visit: Yes Status: Chronic Plan: Address lifestyle modification education. Qualifiers: Obesity type: due to excess calories Obesity classification: adult class 1 (BMI 30 - 34.9) Serious obesity comorbidity presence: with serious comorbidity Body mass index: BMI 31.0-31.9 Qualified Code(s): E66.09 - Other obesity due to excess calories; Z68.31 - Body mass index (BMI) 31.0-31.9, adult (16) Chronic pain Current Visit: Yes Status: Chronic Plan: Patient has pain pump. Overall stable. Will monitor closely. Patient will need a follow up with outpatient pain management Discharge Plan: Home Plan to discharge in: 24 Hours Time Spent Managing Pts Care (In Minutes): 55
[2017-07-22] MEDS: GABAPENTIN 300 MG CAP PO SCH ×2 (15:50→20:48)
[2017-07-22] MEDS: NA CHLORIDE 0.9% 1,000 ML IV SCH (15:51)
[2017-07-22] MEDS ORDERED: WARFARIN SODIUM 4 MG TAB PO SCH (17:00)
[2017-07-22] MEDS: CARVEDILOL 25 MG TAB PO SCH (17:11)
[2017-07-22] MEDS ORDERED: MAGNESIUM SULFATE 1 gm IVPB 1 GM/100 ML BAG IV ONE (18:00)
[2017-07-22] MEDS: ARFORMOTEROL TARTRATE 15 MCG/2 ML VIAL.NEB NEB SCH (20:07)
[2017-07-22] MEDS: ATORVASTATIN 10 MG TAB PO SCH (20:48)
[2017-07-22] MEDS: ACETAMINOPHEN 500 MG TAB PO PRN (20:56)
--- NOTE | 2017-07-23 01:52 | CON ---
Date of Consultation: 07/22/2017 Reason For Consultation: Elevated BUN and creatinine. Fluid management. History Of Present Illness: This is a pleasant 76-year-old gentleman with significant past medical h istory of; 1.Hypertension, diabetes complicated with neuropathy and nephropathy, no retinopathy; colon artery d isease complicated with congestive heart failure, ejection fraction of 40%. 2.Gout. 3.Chronic kidney disease, stage 3B/4, baseline creatinine of 2.2 with GFR of 32. Recently admitted to the hospital for acute kidney injury. The patient came to the hospital because of feeling weak and elevated blood sugar with altered mental status. Denied any fever or chills. Primary workup showed elevation in BUN and creatinine. For th at reason, we have been consulted. The patient apparently has leukocytosis. The patient denied any other GI symptoms like diarrhea or nausea or vomiting. Over the night, the patient started on gentle hydration. Creatinine started trending down. The patient more awake, still weak. Past Medical History: 1.Coronary artery disease, complicated with congestive heart failure. 2.Diabetes, complicated with neuropathy. No retinopathy. 3.Hyperlipidemia. 4.Osteoarthritis. 5.Cardiac arrhythmia, status post pacemaker. Social History: Ex-smoker. Denied alcohol. Denied drug abuse. Past Surgical History: includes ICD, left knee replacement, PTCA. Review of Systems: Head and Neck: No red eye. No ear pain. GI: Decreased intake. : No polyuria. No dysuria. No hematuria. Respiratory: No shortness of breath. Cardiovascular: Has leg swelling. Endocrine: No polydipsia. Skin: No rash. Home Medications: Include allopurinol 300 daily, carvedilol, Lasix 40 b.i.d., gabapentin 300 t.i.d., metoclopramide, pantoprazole, Aldactone, Coumadin, and metronidazole. Physical Examination: General: When I saw the patient, the patient lying in the chair. Shortness of breath present. Vital Signs: Blood pressure of 151/74, pulse of 77. Urine output as by the family documented of 2 L . Chest: Clear to auscultation. Heart: S1, S2. Systolic murmur. Abdomen: Soft, nontender. Extremities: Trace edema. Neurologic: No focal. Laboratory Data: As above. Sodium 133, potassium 3.4, bicarb 23. BUN 67, creatinine 2.3. Calcium of 8.6. WBC 8.4, H and H 11.2/32.4, platelet 151. Urinalysis; specific gravity of +2, negative for infection. Assessment And Plan: 1.Acute kidney injury secondary to prerenal, looks to me still on the dry side. I am going to go ah ead and discontinue Lasix. Continue IV hydration. We will follow up the patient. 2.Hypokalemia, hypomagnesemia. We will supplement. 3.Hypertension, controlled, optimal. We will see blood pressure after dialysis tomorrow. 4.Diabetes, uncontrolled. Advised the patient for more visit with the hospital. We will consider _ current treatment. Will follow up with the primary. 5.Cerebrovascular accident. Continue supportive treatment. We will send for PT and OT. ARMIN/VERO Voice ID: [id number] Report ID: [id number]
[2017-07-23 04:50] LABS: Absolute Lymphocytes (CBC) 1.3 K/uL (0.7-4.9); Absolute Monocytes 0.8 K/uL (0.1-1.3); Absolute Neutrophil 3.8 K/uL (1.8-8.0); Hematocrit 33.1 % (39.6-49.0); Lymphocytes % 21.7 % (15.3-44.8); MCH 30.8 pg (27.0-35.0); MCV 90.3 fL (80-100); Monocytes % 12.2 % (3.3-12.3); RBC Red Blood Cell Count 3.66 M/uL (4.33-5.43)
[2017-07-23 04:52] LABS: Protime INR 3.54
[2017-07-23 04:58] LABS: Potassium 3.6 mEq/L (3.6-5.0)
[2017-07-23] MEDS: CARVEDILOL 25 MG TAB PO SCH ×3 (05:28→17:04)
[2017-07-23] MEDS ORDERED: PANTOPRAZOLE 40MG TABLET PO SCH (07:30)
[2017-07-23] MEDS: INSULIN DETEMIR 100 UNIT/1 ML INSULIN SQ SCH (08:00)
--- NOTE | 2017-07-23 08:22 | RAD REPORT ---
EXAM DESCRIPTION: CT - Head Brain Wo Cont - 07/23/2017 7:34 am CLINICAL HISTORY: Altered consciousness, somnolence, hyperglycemia. COMPARISON: 07/21/2017 TECHNIQUE: All CT scans are performed using dose optimization technique as appropriate and may inclu de automated exposure control or mA/KV adjustment according to patient size. FINDINGS: No intracranial hemorrhage, hydrocephalus or extra-axial fluid collection.Mild generalized brain atrophy is present with mild periventricular and deep white matter chronic microvascular ische cristal changes.No areas of brain edema or evidence of midline shift. The paranasal sinuses and mastoids are clear. The calvarium is intact. IMPRESSION: No acute intracranial abnormality.
--- NOTE | 2017-07-23 08:27 | RAD REPORT ---
EXAM DESCRIPTION: RAD - Chest Single View - 07/23/2017 6:15 am CLINICAL HISTORY: Chest pain. COMPARISON: 07/21/2017 FINDINGS: Portable technique limits examination quality. The lungs are grossly clear. The heart is mildly prominent size with a multilead pacer/defibrillator device noted. No displaced fractures.Bilateral shoulder arthroplasties noted. IMPRESSION: No acute intrathoracic process suspected.
[2017-07-23] MEDS ORDERED: SPIRONOLACTONE 25 MG TABLET PO SCH (09:00)
[2017-07-23] MEDS ORDERED: FUROSEMIDE 40 MG TABLET PO SCH (09:00)
[2017-07-23] MEDS: ALLOPURINOL 300 MG TAB PO SCH (09:00)
[2017-07-23] MEDS: GABAPENTIN 300 MG CAP PO SCH (09:00)
[2017-07-23] MEDS: INSULIN -REGULAR HUMAN 50 UNIT/0.5 ML ML SQ SCH ×4 (09:18→21:46)
[2017-07-23] MEDS ORDERED: NALOXONE 0.4 MG/ML VIAL IV PRN (09:22)
[2017-07-23] MEDS ORDERED: SODIUM CHLORIDE 0.9% 10ML INJ IV PRN (09:50)
[2017-07-23] MEDS: PANTOPRAZOLE 40 MG INJ IVP SCH (10:18)
[2017-07-23] MEDS: ARFORMOTEROL TARTRATE 15 MCG/2 ML VIAL.NEB NEB SCH ×2 (10:18→20:05)
[2017-07-23] MEDS: NA CHLORIDE 0.9% 1,000 ML IV SCH ×2 (10:18→13:36)
--- NOTE | 2017-07-23 10:59 | P.PN ---
Subjective Date of Service: 07/23/17 Primary Care Provider: Dr. Oakes Chief Complaint: Hyperglycemia, general weakness, hyperkalemia Subjective: Other (Pt obtunded on rounds. FSBS stable, changed to NPO, pt sent for stat CT head, negative results.) Review of Systems is unable to be obtained (Nurses state pt was A and Ox3 last pm. Obtunded on my exam at 0645. Reassessed post CT. Pt opens eyes to verbal. CT negative. Will hold levemir and give regular insulin x 5 units, reassess blood sugar in one hour.) Physical Examination - Vital Signs Temperature: 96.7 F Blood Pressure: 143/68 Pulse: 69 Respirations: 20 Pulse Ox (%): 94 - Physical Exam General: Unresponsive HEENT: Atraumatic, Normocephalic Respiratory: Clear to auscultation bilaterally, Normal air movement Cardiovascular: No edema Capillary refill: <2 Seconds Gastrointestinal: Normal bowel sounds Musculoskeletal: No clubbing Integumentary: No rashes Neurological: Abnormal speech, Abnormal strength, Abnormal tone Lymphatics: No axilla or inguinal lymphadenopathy External genitalia: Deferred Rectal: Deferred (VSS, FSBS 200s, will repeat CT head, unable to perform MRI second to pacemaker) - Studies Medications List Reviewed: Yes Assessment & Plan - Problems (Diagnosis) (1) Altered mental status Onset Date: ~07/23/17 Current Visit: Yes Status: Acute Plan: FSBS. CT head, consider narcan. Qualifiers: Altered mental status type: somnolence Qualified Code(s): R40.0 - Somnolence Discharge Plan: Other (psychosocial rehabilitation counselor for NH placement, family requests paperwork for DNR status) - Code Status/Comfort Care Code Status Assessed: Yes Code Status: Full Code
[2017-07-23] MEDS ORDERED: POTASSIUM CL 40 MEQ in NA CHLORIDE 0.9% 500 ML IV SCH (12:00)
[2017-07-23] MEDS: KCL 20 MEQ/100 mL IVPB 20 MEQ/100 ML BAG IV SCH ×2 (12:30→15:58)
--- NOTE | 2017-07-23 12:33 | PN ---
Date of Progress Note: 07/23/2017 Subjective: The patient is status post IV fluid. The patient had confusion, sleepy. Had to have Na rcan. Currently, more awake. Physical Examination: Vital Signs: Blood pressure 143/68, pulse of 69, afebrile. The patient had good urine output of 285 0. Chest: Clear to auscultation. Heart: S1, S2. Regular. Abdomen: Soft, nontender. Extremities: No edema. Neuro: Nonfocal. Jerking on the right lower extremity. Laboratory Data: WBC 6.2, H and H 11.3/33.1, platelets 155. Sodium 135, potassium 3.6, bicarb 23, B UN 51, creatinine down to 1.8 close to his baseline, calcium 8.5, magnesium of 2. Current Medications: The patient on include: 1.Normal saline 50 per hour. 2.Albuterol. 3.Coumadin. 4.Carvedilol. 5.Spironolactone. 6.Tylenol. 7.Lasix. 8.Zofran. 9.Pantoprazole. 10.Insulin. 11.Allopurinol 300. Assessment And Plan: 1.Acute kidney injury secondary to prerenal, recovered, close to baseline. Normal volume currently. I will plan to discontinue IV fluid, both with neurologic condition and possible poor intake. I am going to discontinue Aldactone, discontinue Lasix, and we will continue IV fluid. 2.Hypertension, controlled, optimal. Continue current medications. 3.Altered mental status. Cultures are negative. We will follow up with primary. 4.Hypokalemia. I will supplement. WILLY Voice ID: [id number] Report ID: [id number]
--- NOTE | 2017-07-23 17:42 | RAD REPORT ---
EXAM DESCRIPTION: RAD - Barium Swallow Modified - 07/23/2017 3:06 pm CLINICAL HISTORY: Cough, choking, suspected aspiration, dysphagia. COMPARISON: None. TECHNIQUE: The patient was given liquid, semi-solid and solid forms of barium. Lateral view fluorosc opic imaging was performed in conjunction with speech pathology service. FINDINGS: Aspiration was observed with thin barium. No cough reflex was triggered. Contrast pooled i n the valleculae and piriform sinuses. Patient showed delayed swallow reflex. IMPRESSION: Aspiration without triggering cough reflex. Findings are further detailed on speech path ology report.
--- NOTE | 2017-07-23 18:12 | CON ---
History Of Present Illness: This is a 76-year-old gentleman with significant past medical history of hypertension, diabetes complicated with neuropathy, coronary artery disease complicated with congest tara heart failure, ejection fraction of 40%, history of chronic kidney disease stage 3 to 4, creatini ne 2.2, GFR of 32, who was recently admitted with acute kidney injury. He had 3 L of urine in his bl adder. The patient also had a run of V-tach last night. Also was very sedated this morning for some reason; however, was coming around and stroke was ruled out. NE was ruled out and got better with N arcan. He also has a history of pain. 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 Past Medical History: Coronary artery disease, CHF, diabetes, hyperlipidemia, osteoarthritis, cardia c arrhythmia status post pacemaker. Social History: Ex-smoker. Denies alcohol. Denies drug abuse. Past Surgical History: ICD, left knee replacement, [employer]. Review of Systems: A 10-point review is otherwise normal. Physical Examination: HEENT: Atraumatic, normocephalic. Lungs: Clear. Heart: S1, S2. Gastrointestinal: Soft. No rebound. Musculoskeletal: No clubbing. Skin: No rashes. Neurologic: Alert and oriented. Laboratory Data: White count 6.2, H and H 11 and 33, platelet count 155. Coags elevated. PT 48, IN R 4.0. Chemistry shows sodium 135, potassium 3.6, chloride 105, carbon dioxide 23, BUN 51, creatinin e 1.8, GFR 36, glucose 214. UA essentially negative. Assessment: Urinary retention, 3 L of urine in the bladder. We have to observe for postobstructive diuresis. Continue hydration. His creatinine when he came in was 2.9. He appears to be a poor surg ical candidate. He is on blood thinners, Coumadin, and lives at home. Seems to have some poor care situation at home and case management social worker needs to be involved. Continue management. PB/MODL Voice ID: [id number] Report ID: [id number]
[2017-07-23] MEDS: ATORVASTATIN 10 MG TAB PO SCH (21:46)
[2017-07-24] MEDS: NA CHLORIDE 0.9% 1,000 ML IV SCH ×3 (01:50→15:37)
[2017-07-24 05:23] LABS: Absolute Lymphocytes (CBC) 1.1 K/uL (0.7-4.9); Absolute Monocytes 0.8 K/uL (0.1-1.3); Absolute Neutrophil 5.5 K/uL (1.8-8.0); Basophils % 0.6 % (0-1.3); Eosinophils % 1.5 % (0-4.4); Hematocrit 33.4 % (39.6-49.0); Lymphocytes % 14.7 % (15.3-44.8); MCH 31.2 pg (27.0-35.0); MCV 89.6 fL (80-100); MPV 10.3 fL (7.6-11.3); Monocytes % 10.8 % (3.3-12.3); RBC Red Blood Cell Count 3.73 M/uL (4.33-5.43)
[2017-07-24 05:38] LABS: Magnesium 1.9 mg/dL (1.8-2.5); Potassium 3.8 mEq/L (3.6-5.0)
[2017-07-24 05:44] LABS: Protime INR 2.31
[2017-07-24] MEDS: CARVEDILOL 25 MG TAB PO SCH ×2 (06:22→16:59)
[2017-07-24] MEDS: ARFORMOTEROL TARTRATE 15 MCG/2 ML VIAL.NEB NEB SCH ×2 (08:00→19:39)
[2017-07-24] MEDS: INSULIN -REGULAR HUMAN 50 UNIT/0.5 ML ML SQ SCH ×4 (08:33→20:48)
[2017-07-24] MEDS: PANTOPRAZOLE 40 MG INJ IVP SCH (08:34)
[2017-07-24] MEDS: INSULIN DETEMIR 100 UNIT/1 ML INSULIN SQ SCH (08:34)
[2017-07-24] MEDS: ALLOPURINOL 100 MG TAB PO SCH (08:35)
[2017-07-24] MEDS: ACETAMINOPHEN 500 MG TAB PO PRN (08:36)
[2017-07-24] MEDS ORDERED: FUROSEMIDE 20 MG/ 2ML VIAL IV SCH (09:00)
--- NOTE | 2017-07-24 12:57 | P.PN ---
Subjective Date of Service: 07/24/17 Primary Care Provider: Dr. Oakes Chief Complaint: Hyperglycemia, general weakness, hyperkalemia Pt seen and examined with RN. Chart reviewed and case DW with Nephrology and urology. Pt is doing much better today. Has been working with PT today. CM consulted for Placement. Currently awaiting PT reccs. Review of Systems General: As per HPI Physical Examination - Vital Signs Temperature: 97.5 F Blood Pressure: 146/68 Pulse: 69 Respirations: 14 Pulse Ox (%): 95 - Physical Exam General: Alert, In no apparent distress HEENT: Atraumatic, PERRLA, EOMI Neck: Supple, JVD not distended Respiratory: Clear to auscultation bilaterally, Normal air movement Cardiovascular: Regular rate/rhythm, Normal S1 S2 Gastrointestinal: Normal bowel sounds, No tenderness Musculoskeletal: No tenderness Integumentary: No rashes Neurological: Normal speech, Normal tone, Normal affect Lymphatics: No axilla or inguinal lymphadenopathy - Studies Medications List Reviewed: Yes Assessment & Plan - Problems (Diagnosis) (1) Altered mental status Onset Date: ~07/23/17 Current Visit: Yes Status: Resolved Plan: AMS now resolved. Most likely 2.2 to medication at home -S.P Narcan and doing well overall -AAOX 3 now -Working with PT Qualifiers: Altered mental status type: unspecified Qualified Code(s): R41.82 - Altered mental status, unspecified (2) Chronic renal disease Current Visit: Yes Status: Acute Plan: Acute on Chronic RD. -IV fluids for now -Nephrology consulted. Appreciate reccs -Hold lasix, spironolactone and gentle Hydration Qualifiers: Chronic kidney disease stage: stage 3 (moderate) Qualified Code(s): N18.3 - Chronic kidney disease, stage 3 (moderate) (3) Ventricular tachycardia Current Visit: Yes Status: Resolved Plan: Now resolved. (4) Anemia Current Visit: Yes Status: Chronic Qualifiers: Anemia type: other cause Other causes of anemia: chronic disease, other Qualified Code(s): D63.8 - Anemia in other chronic diseases classified elsewhere (5) GERD (gastroesophageal reflux disease) Onset Date: 11/22/16 Current Visit: No Status: Chronic Qualifiers: Esophagitis presence: esophagitis presence not specified (6) Hypertension Onset Date: 01/16/15 Current Visit: No Status: Chronic Qualifiers: Hypertension type: essential hypertension Qualified Code(s): I10 - Essential (primary) hypertension (7) Atrial fibrillation Onset Date: 11/22/16 Current Visit: No Status: Chronic Qualifiers: Atrial fibrillation type: chronic Qualified Code(s): I48.2 - Chronic atrial fibrillation (8) CAD (coronary artery disease) Onset Date: 11/22/16 Current Visit: No Status: Chronic Qualifiers: Coronary Disease-Associated Artery/Lesion type: [place] artery [place] vs. transplanted heart: [place] heart Associated angina: without angina Qualified Code(s): I25.10 - Atherosclerotic heart disease of [place] coronary artery without angina pectoris (9) CHF (congestive heart failure) Current Visit: No Status: Chronic Qualifiers: Qualified Code(s): I50.23 - Acute on chronic systolic (congestive) heart failure (10) Diabetes mellitus Onset Date: 01/16/15 Current Visit: No Status: Chronic Qualifiers: Diabetes mellitus type: type 2 Diabetes mellitus assisted insulin use: with assisted use Diabetes mellitus complication status: with hyperglycemia Qualified Code(s): E11.65 - Type 2 diabetes mellitus with hyperglycemia; Z79.4 - residential (current) use of insulin (11) Hyperlipidemia Onset Date: 01/16/15 Current Visit: No Status: Chronic Qualifiers: Hyperlipidemia type: mixed hyperlipidemia Qualified Code(s): E78.2 - Mixed hyperlipidemia Discharge Plan: [facility] Plan to discharge in: 48 Hours - Code Status/Comfort Care Code Status Assessed: Yes Critical Care: No
--- NOTE | 2017-07-24 16:32 | PN ---
Date of Progress Note: 07/24/2017 Subjective: The patient doing better. More awake today. Physical Examination: Vital Signs: Blood pressure 146/68, pulse of 69. Chest: Clear to auscultation. Heart: S1, S2. Regular. Abdomen: Soft, nontender. Extremities: No edema. The patient had Ramirez yesterday. Had urine retention of 3 L. Laboratory Data: WBC 7.6, H and H 11.6/33.4, platelet of 166. Sodium 136, potassium 3.8, bicarb 23, BUN 36, creatinine 1.3, GFR of 50, calcium 8.8, magnesium 1.9. Medications: Current medications the patient on its include: 1. Breathing treatment. 2. Coumadin. 3. Carvedilol b.i.d. 4. Insulin. 5. Allopurinol 200 daily. 6. Normal saline at 75 per hour. Assessment And Plan: 1. Acute kidney injury secondary to obstructive uropathy and prerenal, recovered, back close to his baseline. I am going to decrease IV fluid to 50, plan to discontinue. I am going to start the patient on Flomax and we will follow up. 2. Hypertension, controlled, optimal. Continue current medication. 3. Altered mental status secondary to pain medication, resolved. 4. Obstructive uropathy. We will follow up with Urology. We will add Flomax. 5. Hypokalemia, resolved. WILLY Voice ID: [id number] Report ID: [id number] RUPA
[2017-07-24] MEDS: WARFARIN SODIUM 4 MG TAB PO SCH (16:58)
--- NOTE | 2017-07-24 18:32 | PN ---
Mr. Valenzuela is doing fine today. His creatinine has come down from 2.9 to 1.3 with Ramirez catheter and had 3 L in his bladder, had obstructive uropathy and renal failure due to postobstructive causes. PSA will need to be done to Rule out prostate cancer. He will need a Ramirez catheter in for the next 2-4 weeks. He is to follow up with me in the office for further workup, and we will get him ready for possible TURP. POOJA/VERO Voice ID: [id number] Report ID: [id number] MTDD
[2017-07-24] MEDS: ATORVASTATIN 10 MG TAB PO SCH (20:48)
[2017-07-25 04:42] LABS: Absolute Lymphocytes (CBC) 1.5 K/uL (0.7-4.9); Absolute Monocytes 0.7 K/uL (0.1-1.3); Absolute Neutrophil 4.9 K/uL (1.8-8.0); Basophils % 0.8 % (0-1.3); Lymphocytes % 20.4 % (15.3-44.8); MCH 30.9 pg (27.0-35.0); MCV 89.1 fL (80-100); MPV 9.2 fL (7.6-11.3); Monocytes % 9.9 % (3.3-12.3); RBC Red Blood Cell Count 3.71 M/uL (4.33-5.43)
[2017-07-25 04:50] LABS: Protime INR 2.14
[2017-07-25] MEDS: CARVEDILOL 25 MG TAB PO SCH ×2 (05:13→17:47)
[2017-07-25 05:15] LABS: Magnesium 1.8 mg/dL (1.8-2.5); Potassium 3.9 mEq/L (3.6-5.0)
[2017-07-25] MEDS ORDERED: MAGNESIUM SULFATE 1 gm IVPB 1 GM/100 ML BAG IV ONE (05:29)
[2017-07-25] MEDS: INSULIN -REGULAR HUMAN 50 UNIT/0.5 ML ML SQ SCH ×4 (07:30→20:41)
[2017-07-25] MEDS: ARFORMOTEROL TARTRATE 15 MCG/2 ML VIAL.NEB NEB SCH ×2 (07:57→20:00)
[2017-07-25] MEDS: INSULIN DETEMIR 100 UNIT/1 ML INSULIN SQ SCH (08:00)
[2017-07-25 08:45] VITALS: O2SAT 95
[2017-07-25] MEDS: PANTOPRAZOLE 40 MG INJ IVP SCH (08:45)
[2017-07-25] MEDS: ALLOPURINOL 100 MG TAB PO SCH (09:00)
[2017-07-25] MEDS: TAMSULOSIN 0.4 MG SR CAP PO SCH (09:00)
[2017-07-25] MEDS ORDERED: METOCLOPRAMIDE 10MG/10ML UCUP PO SCH (10:56)
[2017-07-25] MEDS: METOCLOPRAMIDE 5 MG TAB PO SCH ×2 (11:49→20:41)
[2017-07-25] MEDS: NA CHLORIDE 0.9% 1,000 ML IV SCH (11:53)
--- NOTE | 2017-07-25 13:09 | P.PN ---
Subjective Date of Service: 07/25/17 Primary Care Provider: Dr. Oakes Chief Complaint: Hyperglycemia, general weakness, hyperkalemia Pt seen and examined with RN. Chart reviewed and case DW with Nephrology and urology. Pt is doing much better today. Has been working with PT today. CM consulted for Placement. Currently awaiting PT reccs. Review of Systems General: As per HPI Physical Examination - Vital Signs Temperature: 96.9 F Blood Pressure: 175/78 Pulse: 69 Respirations: 18 Pulse Ox (%): 97 - Physical Exam General: Alert, In no apparent distress HEENT: Atraumatic, PERRLA, EOMI Neck: Supple, JVD not distended Respiratory: Clear to auscultation bilaterally, Normal air movement Cardiovascular: Regular rate/rhythm, Normal S1 S2 Gastrointestinal: Normal bowel sounds, No tenderness Musculoskeletal: No tenderness Integumentary: No rashes Neurological: Normal speech, Normal tone, Normal affect Lymphatics: No axilla or inguinal lymphadenopathy - Studies Medications List Reviewed: Yes Assessment & Plan - Problems (Diagnosis) (1) Altered mental status Onset Date: ~07/23/17 Current Visit: Yes Status: Resolved Plan: AMS now resolved. Most likely 2.2 to medication at home -S.P Narcan and doing well overall -AAOX 3 now -Working with PT Qualifiers: Altered mental status type: unspecified Qualified Code(s): R41.82 - Altered mental status, unspecified (2) Chronic renal disease Current Visit: Yes Status: Acute Plan: Acute on Chronic RD. -IV fluids for now -Nephrology consulted. Appreciate reccs -Hold lasix, spironolactone and gentle Hydration Qualifiers: Chronic kidney disease stage: stage 3 (moderate) Qualified Code(s): N18.3 - Chronic kidney disease, stage 3 (moderate) (3) Ventricular tachycardia Current Visit: Yes Status: Resolved Plan: Now resolved. (4) Anemia Current Visit: Yes Status: Chronic Qualifiers: Anemia type: other cause Other causes of anemia: chronic disease, other Qualified Code(s): D63.8 - Anemia in other chronic diseases classified elsewhere (5) GERD (gastroesophageal reflux disease) Onset Date: 11/22/16 Current Visit: No Status: Chronic Qualifiers: Esophagitis presence: esophagitis presence not specified (6) Hypertension Onset Date: 01/16/15 Current Visit: No Status: Chronic Qualifiers: Hypertension type: essential hypertension Qualified Code(s): I10 - Essential (primary) hypertension (7) Atrial fibrillation Onset Date: 11/22/16 Current Visit: No Status: Chronic Qualifiers: Atrial fibrillation type: chronic Qualified Code(s): I48.2 - Chronic atrial fibrillation (8) CAD (coronary artery disease) Onset Date: 11/22/16 Current Visit: No Status: Chronic Qualifiers: Coronary Disease-Associated Artery/Lesion type: [place] artery [place] vs. transplanted heart: [place] heart Associated angina: without angina Qualified Code(s): I25.10 - Atherosclerotic heart disease of [place] coronary artery without angina pectoris (9) CHF (congestive heart failure) Current Visit: No Status: Chronic Qualifiers: Qualified Code(s): I50.23 - Acute on chronic systolic (congestive) heart failure (10) Diabetes mellitus Onset Date: 01/16/15 Current Visit: No Status: Chronic Qualifiers: Diabetes mellitus type: type 2 Diabetes mellitus halfway insulin use: with halfway use Diabetes mellitus complication status: with hyperglycemia Qualified Code(s): E11.65 - Type 2 diabetes mellitus with hyperglycemia; Z79.4 - [facility] (current) use of insulin (11) Hyperlipidemia Onset Date: 01/16/15 Current Visit: No Status: Chronic Qualifiers: Hyperlipidemia type: mixed hyperlipidemia Qualified Code(s): E78.2 - Mixed hyperlipidemia
[2017-07-25] MEDS: WARFARIN SODIUM 4 MG TAB PO SCH (17:45)
[2017-07-25] MEDS: ATORVASTATIN 10 MG TAB PO SCH (20:41)
--- NOTE | 2017-07-25 22:26 | PN ---
Subjective: Mr. Valenzuela doing well. Plan is to go to [facility] tomorrow due to family dyn amics stable. Plan is to keep the Ramirez catheter in due to urinary retention with 3 L of urine. Uri ne cultures are negative. I will continue Macrodantin 50 mg once a day for prophylaxis with food. H e is to continue Flomax. See me in 30 days for a voiding trial and a PSA in the office. POOJA/VERO Voice ID: [id number] Report ID: [id number]
--- NOTE | 2017-07-26 02:45 | PN ---
Date of Progress Note: 07/25/2017 Chief Complaint: Acute kidney injury secondary to obstructive uropathy with prerenal hyperazotemia. The patient is feeling better today. IV fluids were adjusted and the patient is on IV fluids with 50 cc/hour. Blood pressure has improved. Review of Systems: The patient denies PND, orthopnea. The patient is feeling better today. Physical Examination: Vital Signs: Blood pressure is 146/75, heart rate 67, temperature 97.2. Lungs: Clear to auscultation bilaterally. Heart: S1, S2. Abdomen: Soft, benign. Extremities: Minimal edema. Laboratory Data: Hemoglobin is 11.4, WBC is 7.5, platelet count is 167,000. BUN 24, creatinine 1.29, glucose 186, sodium 134, potassium 3.9, chloride 103, magnesium 1.8, calcium 8.4. Impression And Plan: 1. Acute kidney injury. Renal function is gradually improving. Continue adequate hydration. Monitor urine output and fluid balance. 2. Hypertension. Blood pressure is improving. Continue current medication. The patient will continue carvedilol. 3. Obstructive uropathy. The patient has been followed by urologist. 4. History of legs edema. The patient was previously on Lasix. Continue low- sodium diet at this point. EB/MODL Voice ID: [id number] Report ID: [id number] MTDD
[2017-07-26] MEDS: NA CHLORIDE 0.9% 1,000 ML IV SCH (05:00)
[2017-07-26] MEDS: CARVEDILOL 25 MG TAB PO SCH (05:23)
[2017-07-26 05:35] VITALS: BMI 31.2
[2017-07-26 07:21] LABS: Potassium 4.2 mEq/L (3.6-5.0)
[2017-07-26] MEDS: ARFORMOTEROL TARTRATE 15 MCG/2 ML VIAL.NEB NEB SCH (07:32)
[2017-07-26] MEDS: INSULIN DETEMIR 100 UNIT/1 ML INSULIN SQ SCH (08:10)
[2017-07-26] MEDS: INSULIN -REGULAR HUMAN 50 UNIT/0.5 ML ML SQ SCH ×2 (08:10→11:30)
[2017-07-26] MEDS: PANTOPRAZOLE 40 MG INJ IVP SCH (08:44)
[2017-07-26] MEDS: METOCLOPRAMIDE 5 MG TAB PO SCH (08:45)
[2017-07-26] MEDS: TAMSULOSIN 0.4 MG SR CAP PO SCH (08:45)
[2017-07-26] MEDS: ALLOPURINOL 100 MG TAB PO SCH (08:46)
[2017-07-26 11:45] VITALS: BP 159/75; TEMP 97.1
--- NOTE | 2017-07-26 13:21 | PN ---
Subjective: He is doing well. Objective: Urine is clear. Vital signs: 97.3, pulse 73, respirations 18, BP 151/73, 95% saturation. Assessment: Status post urinary retention and is planning to go to assisted care. PSA was ordered today. Creatinine is down to 1.2, more like baseline level. Based on the Ramirez catheter placement, he will need Ramirez catheter from now on versus a transurethral resection of prostate, so we will await to see what his final PSA shows. POOJA/VERO Voice ID: [id number] Report ID: [id number] RUPA
--- NOTE | 2017-07-26 13:26 | P.DS ---
Admission Date: 07/23/17 Discharge Date: 07/26/17 Primary Care Provider: Dr. Oakes Disposition: TRANSFER TO [facility] Discharge Condition: GOOD Reason for Admission: Hyperglycemia, general weakness, hyperkalemia - Problems (1) Altered mental status Onset Date: ~07/23/17 Status: Resolved Qualifiers: Altered mental status type: unspecified Qualified Code(s): R41.82 - Altered mental status, unspecified (2) Chronic renal disease Status: Acute Qualifiers: Chronic kidney disease stage: stage 3 (moderate) Qualified Code(s): N18.3 - Chronic kidney disease, stage 3 (moderate) (3) Ventricular tachycardia Status: Resolved (4) Anemia Status: Chronic Qualifiers: Anemia type: other cause Other causes of anemia: chronic disease, other Qualified Code(s): D63.8 - Anemia in other chronic diseases classified elsewhere (5) GERD (gastroesophageal reflux disease) Onset Date: 11/22/16 Status: Chronic Qualifiers: Esophagitis presence: esophagitis presence not specified (6) Hypertension Onset Date: 01/16/15 Status: Chronic Qualifiers: Hypertension type: essential hypertension Qualified Code(s): I10 - Essential (primary) hypertension (7) Atrial fibrillation Onset Date: 11/22/16 Status: Chronic Qualifiers: Atrial fibrillation type: chronic Qualified Code(s): I48.2 - Chronic atrial fibrillation (8) CAD (coronary artery disease) Onset Date: 11/22/16 Status: Chronic Qualifiers: Coronary Disease-Associated Artery/Lesion type: [place] artery [place] vs. transplanted heart: [place] heart Associated angina: without angina Qualified Code(s): I25.10 - Atherosclerotic heart disease of [place] coronary artery without angina pectoris (9) CHF (congestive heart failure) Status: Chronic Qualifiers: Qualified Code(s): I50.23 - Acute on chronic systolic (congestive) heart failure (10) Diabetes mellitus Onset Date: 01/16/15 Status: Chronic Qualifiers: Diabetes mellitus type: type 2 Diabetes mellitus snf insulin use: with snf use Diabetes mellitus complication status: with hyperglycemia Qualified Code(s): E11.65 - Type 2 diabetes mellitus with hyperglycemia; Z79.4 - [facility] (current) use of insulin (11) Hyperlipidemia Onset Date: 01/16/15 Status: Chronic Qualifiers: Hyperlipidemia type: mixed hyperlipidemia Qualified Code(s): E78.2 - Mixed hyperlipidemia Brief History of Present Illness: his is a 68-year-old male that had come to the ER via EMS after group home called for general weakness and lethargy for the last couple days. Family stated that his blood sugars have been running high and has appeared more drowsy lately. Patient stated that he just feels weak but denies any other complaints. Patient with a history of chronic back pain congestive heart failure, COPD, diabetes, high cholesterol, gout, hypertension, [place]. It was noted on labs today that he has a small elevation in his troponin of 0.05. Patient also with a known history of renal insufficiency. Hyperkalemia was discovered secondary to the renal insufficiency has been treated down in the emergency room. Patient was also seen to have an elevated white cell count. Patient denies any cough, runny nose, fevers, congestion, and shortness of breath. Patient denies any nausea, vomiting, abdominal pain, diarrhea, or urinary complaints. Patient is not on steroid therapy Hospital Course: Overall during the hospital stay patient remained stable Patient was initially admitted to the hospital for hyperglycemia and generalized weakness along with electrolyte abnormalities. For patient's hyperglycemia patient remained on IV fluids here in the hospital along with aggressive sliding scale. Patient's blood sugar was controlled on insulin sliding scale and diet control. Patient had resolution of his hyperglycemia and patient was switched over to mild sliding scale after that. Patient has been taking some steroids recently which might be causing his elevated blood sugar and was advised to stop taking the steroids and contact his primary care doctor for close followup. Patient's generalized weakness was most likely secondary to his acute kidney injury. Most likely secondary from dehydration given the patient's hyperglycemia. Patient was given IV fluids here in the hospital after which his acute kidney injury improved markedly here in the hospital. Patient's generalized weakness also resolved. Patient worked with physical therapy while here in the hospital. On day 2 of admission patient did have an episode of being altered and responded fairly well to Narcan. Patient has a protein pump which she sometimes uses more than prescribed. Patient also has a family dynamics concerning for drug abuse. Patient was educated extensively using his pump as prescribed. Patient did recover after 1 dose of Narcan. No other complaints to offer. Patient was referred over to with [facility] for more rehab and will be discharged home after that. Patient's electrolyte abnormalities did resolve also after IV fluids and patient did not have any other complaints to offer while here in the hospital. Patient was then transferred to [facility] for further care. Vital Signs/Physical Exam: Temp Pulse Resp BP Pulse Ox 97.1 F 74 18 159/75 H 95 07/26/17 11:44 07/26/17 11:44 07/26/17 11:44 07/26/17 11:44 07/26/17 11:44 General: Alert, In no apparent distress HEENT: Atraumatic, PERRLA, EOMI Neck: Supple, JVD not distended Respiratory: Clear to auscultation bilaterally, Normal air movement Cardiovascular: Regular rate/rhythm, Normal S1 S2 Gastrointestinal: Normal bowel sounds, No tenderness Musculoskeletal: No tenderness Integumentary: No rashes Neurological: Normal speech, Normal tone, Normal affect Lymphatics: No axilla or inguinal lymphadenopathy Laboratory Data at Discharge: WBC 7.5 K/uL (4.3-10.9) 07/25/17 04:31 Hgb 11.4 g/dL (13.6-17.9) L 07/25/17 04:31 Hct 33.0 % (39.6-49.0) L 07/25/17 04:31 Plt Count 167 K/uL (152-406) 07/25/17 04:31 PT 25.4 SECONDS (9.5-12.5) H 07/25/17 04:31 INR 2.14 07/25/17 04:31 APTT 34.9 SECONDS (24.3-36.9) 07/21/17 13:02 Sodium 134 mEq/L (135-145) L 07/26/17 06:23 Potassium 4.2 mEq/L (3.6-5.0) 07/26/17 06:23 BUN 17 mg/dL (6-20) 07/26/17 06:23 Creatinine 1.17 mg/dL (0.61-1.24) 07/26/17 06:23 Glucose 223 mg/dL (65-120) H 07/26/17 06:23 Magnesium 2.0 mg/dL (1.8-2.5) 07/26/17 06:23 Total Bilirubin 0.6 mg/dL (0.3-1.2) 07/21/17 13:02 AST 27 IU/L (10-42) 07/21/17 13:02 ALT 18 IU/L (10-60) 07/21/17 13:02 Alkaline Phosphatase 56 IU/L (42-121) 07/21/17 13:02 Troponin I < 0.03 ng/mL (<0.03) 07/22/17 01:04 B-Natriuretic Peptide 87 pg/ml (<=100) 07/22/17 04:19 Home Medications: Allopurinol [Zyloprim] 300 mg PO DAILY 07/22/17 Carvedilol [Coreg] 25 mg PO DAILY 07/22/17 Furosemide [Lasix] 40 mg PO BID 07/22/17 Gabapentin [Gralise] 300 mg PO TID 07/22/17 Metoclopramide HCl [Reglan] 10 mg PO TID 07/22/17 Pantoprazole Sodium 40 mg PO DAILY 07/22/17 Spironolactone [Aldactone] 50 mg PO DAILY 07/22/17 Warfarin Sodium [Coumadin] 5 mg PO DAILY 07/22/17 metroNIDAZOLE [Metronidazole] 500 mg PO BID 07/22/17 Nitrofuran Macro [Macrodantin] 50 mg PO DAILY #30 cap 07/25/17 New Medications: Nitrofuran Macro [Macrodantin] 50 mg PO DAILY #30 cap Diet: Regular Activity: Ad jeri Followup: Tamara Dan MD [ACTIVE - CAN ADMIT] - (Discharge with Ramirez. Follow up in 1 month. )
--- NOTE | 2017-07-26 23:13 | PN ---
Date of Progress Note: 07/26/2017 Chief Complaint: Acute kidney injury secondary to obstructive uropathy with prerenal azotemia. Subjective: The patient is feeling better. P.o. intake has improved. Review of Systems: The patient denies complaints. Physical Examination: Lungs: Clear to auscultation bilaterally. Heart: S1,, S2. Abdomen: Soft, benign. Extremities: Minimal edema. Vital Signs: Blood pressure 159/75, heart rate 74, respiratory rate 18, temperature 97.1. Laboratory Data: Hemoglobin 11.4, WBC 7.5, platelet count 167,000. Chemistries showed sodium 134, potassium 4.2, chloride 103 CO2 of 25. BUN 17, creatinine 1.17, glucose 223. Impression: 1. Acute on chronic kidney injury. The patient responded to IV fluids. Monitor electrolytes and azotemia. 2. Obstructive uropathy. The patient will follow up with urologist. 3. Hypertension. Blood pressure control. Continue carvedilol. 4. Legs edema. The patient was previously on Lasix. Continue low-sodium diet and discontinue IV fluids. Continue p.o. hydration. GUADALUPE/VERO Voice ID: [id number] Report ID: [id number] RUPA
== END 2017-07-26 12:01 | DRG 683 ==
LOC: ER 11:00 → ERHOLD 16:59 → 4TH 20:04 → OBSVTOIN 07-23 15:35
PROVIDERS: ADMIT Family Medicine; ATTEND Family Medicine
DX: N17.9 Acute kidney failure, unspecified (principal); I13.0 Hypertensive heart and chronic kidney disease with heart failure and stage 1 through stage 4 chronic kidney disease, or unspecified chronic kidney disease; I47.2 Ventricular tachycardia; I50.22 Chronic systolic (congestive) heart failure; N13.8 Other obstructive and reflux uropathy; E87.1 Hypo-osmolality and hyponatremia; E11.65 Type 2 diabetes mellitus with hyperglycemia; N13.9 Obstructive and reflux uropathy, unspecified; E11.22 Type 2 diabetes mellitus with diabetic chronic kidney disease; N18.3 Chronic kidney disease, stage 3 (moderate); E87.5 Hyperkalemia; D63.8 Anemia in other chronic diseases classified elsewhere; K21.9 Gastro-esophageal reflux disease without esophagitis; I48.2 Chronic atrial fibrillation; I25.10 Atherosclerotic heart disease of native coronary artery without angina pectoris; E78.5 Hyperlipidemia, unspecified; J44.9 Chronic obstructive pulmonary disease, unspecified; M10.9 Gout, unspecified; E86.0 Dehydration; N40.1 Benign prostatic hyperplasia with lower urinary tract symptoms; R33.8 Other retention of urine; E11.40 Type 2 diabetes mellitus with diabetic neuropathy, unspecified; E11.21 Type 2 diabetes mellitus with diabetic nephropathy; M19.90 Unspecified osteoarthritis, unspecified site; R41.82 Altered mental status, unspecified; Z87.891 Personal history of nicotine dependence; M54.9 Dorsalgia, unspecified; G89.29 Other chronic pain; Z79.4 Long term (current) use of insulin; I25.2 Old myocardial infarction; T39.95XA Adverse effect of unspecified nonopioid analgesic, antipyretic and antirheumatic, initial encounter; Y92.009 Unspecified place in unspecified non-institutional (private) residence as the place of occurrence of the external cause; Z95.810 Presence of automatic (implantable) cardiac defibrillator; E66.9 Obesity, unspecified; Z68.31 Body mass index [BMI] 31.0-31.9, adult; Z95.5 Presence of coronary angioplasty implant and graft; Z88.5 Allergy status to narcotic agent; Z88.0 Allergy status to penicillin; Z91.041 Radiographic dye allergy status; Z79.01 Long term (current) use of anticoagulants; Z79.82 Long term (current) use of aspirin
CPT/HCPCS: 36415; 51702; 70450; 71045; 74230; 80048; 80076; 81003; 81015; 82550; 82553; 82962; 83036; 83735; 83880; 84484; 85025; 85610; 85730; 93005; 94760; 96360; 96372; 97163; 99285; C9113; G0103; G0378; J1940; J2310; J3475; J7030; J7605

== ENCOUNTER 2017-08-06 20:32 | Inpatient (IN) | payer OTHER ==
--- OUTSIDE RECORDS SUMMARY | 2017-08-06 20:34 | XMS REPORT | Clinical Summary ---
:1940 Author Organization [facility] Address [address] [place] [address] Care Team Providers Name Role Phone Asked, [...] INFLUENZA VACCINE 09/10/2017 Results Not on fileafter 08/05/2016 Insurance Payer Benefit Plan / Group Subscriber ID Type Phone Address [employer] FARM INS STATE [employer]ARM INS xxxxxxxxxxxx Commercial MEDICARE MEDICARE PART A AND B xxxxxxxxxx Medicare [place], [place] Home: [phone] [place], [place] [id number]
[2017-08-06] MEDS ORDERED: NALOXONE 0.4 MG/ML VIAL ONE ×2 (21:02→21:33)
[2017-08-06] MEDS ORDERED: CEFEPIME 1 GM/100 ML BAG IV ONE (21:02)
[2017-08-06] MEDS ORDERED: NA CHLORIDE 0.9% 1,000 ML ONE ×2 (21:02→22:42)
[2017-08-06] MEDS ORDERED: ACETAMINOPHEN 650MG/RECT SUPP PR ONE (21:02)
[2017-08-06 21:04] LABS: Absolute Monocytes 2.1 K/uL (0.1-1.3); Absolute Neutrophil 16.1 K/uL (1.8-8.0); Basophils % 0.2 % (0-1.3); Hematocrit 40.4 % (39.6-49.0); Lymphocytes % 5.2 % (15.3-44.8); MCV 90.1 fL (80-100); MPV 10.2 fL (7.6-11.3); RBC Red Blood Cell Count 4.49 M/uL (4.33-5.43)
[2017-08-06 21:05] LABS: Arterial Blood Carboxyhemoglob 1.3 % (0-1.5); Blood Gas Oxyhemoglobin 93.8 % (94-97); Blood O2 Saturation 96.4 % (92-98.5)
[2017-08-06 21:07] LABS: Protime INR 2.94
[2017-08-06 21:22] LABS: Albumin 3.1 g/dL (3.4-5.0); Bilirubin Direct 0.4 mg/dL (0-0.2); Bilirubin Total 1.1 mg/dL (0.2-1.0); Potassium 5.1 mmol/L (3.5-5.1); Protein, Total 8.3 g/dL (6.4-8.2)
[2017-08-06 21:55] LABS: Urine Blood 3+ (NEG); Urine Glucose NEGATIVE (NEG); Urine Protein 3+ (NEG); Urine pH >8.5 (5.0-7.0)
[2017-08-06] MEDS ORDERED: ACETAMINOPHEN 325 MG/SUPP PR ONE (22:06)
--- NOTE | 2017-08-06 22:32 | EDPHYS ---
Physician Documentation [facility] Name: Laureano Valenzuela Age: 76 yrs Sex: Male : 1940 Arrival Date: 08/06/2017 Time: 20:34 Bed 2 Private MD: ED Physician Nasir Barba HPI: 08/06 23:41 This 76 yrs old Male presents to ER via EMS with complaints of Altered Mental gs Status, Breathing Difficulty. 23:41 The patient presents with confusion, decreased mental status. Onset: The gs symptoms/episode began/occurred yesterday. Possible causes: seizure, sepsis. Associated signs and symptoms: Pertinent positives: fever. The patient has experienced similar episodes in the past, a few times. The patient has not recently seen a physician. 23:41 Unable to obtain HPI due to patient distress. gs Historical: - Allergies: 20:40 Codeine; tl2 20:40 HYDROCODONE; tl2 20:40 Morphine; tl2 20:40 PENICILLINS; tl2 - Home Meds: 20:40 allopurinol 300 mg Oral tab 1 tab once daily [Active]; Cefuroxime Oral 500 mg twice a tl2 day [Active]; Coreg 25 mg Oral tab 1 tab 2 times per day [Active]; dilaudid pump [Active]; furosemide 40 mg Oral tab 1 tab once daily [Active]; Insulin: Novolin 70/30 Sub-Q 20 units in am and 45 units at night [Active]; lisinopril 10 mg Oral tab 1 tab once daily [Active]; metoclopramide HCl 10 mg Oral tab 1 tab three times a day [Active]; pantoprazole 40 mg Oral TbEC 1 tab once daily [Active]; simvastatin 10 mg Oral tab 1 tab nightly [Active]; warfarin 3.5 mg Oral once daily [Active]; - PMHx: 20:40 Back pain; CHF; Chronic pain; COPD; Diabetes - IDDM; Gout; High Cholesterol; tl2 Hypertension; Myocardial infarction; - Immunization history:: Adult Immunizations up to date. - Social history:: Smoking status: unknown. - Ebola Screening: : No symptoms or risks identified at this time. ROS: 23:41 Unable to obtain ROS due to patient distress. gs Exam: 23:41 Head/Face: Normocephalic, atraumatic. Eyes: Pupils equal round and reactive to light, gs extra-ocular motions intact. Lids and lashes normal. Conjunctiva and sclera are non-icteric and not injected. Cornea within normal limits. Periorbital areas with no swelling, redness, or edema. ENT: Nares patent. No nasal discharge, no septal abnormalities noted. Tympanic membranes are normal and external auditory canals are clear. Oropharynx with no redness, swelling, or masses, exudates, or evidence of obstruction, uvula midline. Mucous membranes moist. Neck: Trachea midline, no thyromegaly or masses palpated, and no cervical lymphadenopathy. Supple, full range of motion without nuchal rigidity, or vertebral point tenderness. No Meningismus. Chest/axilla: Normal chest wall appearance and motion. Nontender with no deformity. No lesions are appreciated. 23:41 Abdomen/GI: Soft, non-tender, with normal bowel sounds. No distension or tympany. No guarding or rebound. No evidence of tenderness throughout. Back: No spinal tenderness. No costovertebral tenderness. Full range of motion. Skin: Warm, dry with normal turgor. Normal color with no rashes, no lesions, and no evidence of cellulitis. MS/ Extremity: Pulses equal, no cyanosis. Neurovascular intact. Full, normal range of motion. 23:41 Constitutional: The patient appears alert, awake, in obvious distress, severely distressed. 23:41 Cardiovascular: Rate: tachycardic, Rhythm: regular, Pulses: no pulse deficits are appreciated. 23:41 ECG was reviewed by the Attending Physician. 23:41 Respiratory: severe repiratory distress is noted, Respirations: tachypnea, Breath sounds: rhonchi. 23:41 Neuro: Orientation: Not oriented to person, place, time, Cranial nerves: no acute changes, Motor: moves all fours. Vital Signs: 20:40 BP 105 / 64; Pulse 109; Resp 20; Temp 102.2; Pulse Ox 100% on Non-rebreather mask; tl2 Weight 90.72 kg; Height 5 ft. 10 in. (177.80 cm); Pain 0/10; 21:25 BP 121 / 68; Pulse 101; Resp 15; Pulse Ox 100% on BiPAP; tl2 22:03 BP 164 / 78; Pulse 116; Resp 26; Temp 102.7(R); Pulse Ox 100% on BiPAP; tl2 22:49 BP 121 / 66; Pulse 106; Resp 16; Pulse Ox 98% on BiPAP; tl2 23:30 BP 132 / 64; Pulse 100; Resp 23; Temp 100.8(R); Pulse Ox 99% on 3 lpm NC; tl2 20:40 Body Mass Index 28.70 (90.72 kg, 177.80 cm) tl2 [place] Coma Score: 23:54 Eye Response: to pain(2). Verbal Response: confused(4). Motor Response: localizes gs pain(5). Total: 11. MDM: 20:49 Patient medically screened. 23:41 Data reviewed: vital signs, nurses notes. Response to treatment: the patient's symptoms gs have markedly improved after treatment, and as a result, I will admit patient. 08/06 20:51 Order name: Basic Metabolic Panel; Complete Time: 22:18 08/06 20:51 Order name: Blood Culture Adult (2) 08/06 20:51 Order name: CBC with Diff; Complete Time: 22:18 08/06 20:51 Order name: CPK; Complete Time: 22:18 08/06 20:51 Order name: Lactate; Complete Time: 22:18 08/06 20:51 Order name: LFT's; Complete Time: 22:18 08/06 20:51 Order name: Lipase; Complete Time: 22:18 08/06 20:51 Order name: Procalcitonin; Complete Time: 22:18 08/06 20:51 Order name: Protime (+inr); Complete Time: 22:18 08/06 20:51 Order name: Troponin (emerg Dept Use Only); Complete Time: 22:18 08/06 20:51 Order name: ABG; Complete Time: 22:18 08/06 21:23 Order name: Urine Dipstick--Ancillary (enter results); Complete Time: 22:18 [facility] 08/06 21:44 Order name: Urine Culture [facility] 08/06 21:44 Order name: Urine Microscopic Only; Complete Time: 23:49 [facility] 08/06 20:51 Order name: Chest Single View XRAY 08/06 20:51 Order name: Accucheck; Complete Time: 20:52 08/06 20:51 Order name: Cardiac monitoring; Complete Time: 20:52 08/06 20:51 Order name: EKG - Nurse/Tech; Complete Time: 20: 08/06 20:51 Order name: IV Saline Lock - Large Bore; Complete Time: 20: 08/06 20:51 Order name: Labs collected and sent; Complete Time: 20: 08/06 20:51 Order name: O2 Per Protocol; Complete Time: 20: 08/06 20:51 Order name: O2 Sat Monitoring; Complete Time: : 08/06 20:51 Order name: BIPAP 08/06 20:51 Order name: Urine Dipstick-Ancillary (obtain specimen); Complete Time: 21:13 gs EC:41 Rate is 111 beats/min. Rhythm is regular. TN interval is normal. QRS interval is gs prolonged. QT interval is prolonged. Q waves are Old. Clinical impression: NSR w/ Non-specific ST/T Changes and Abnormal EKG without significant change. Interpreted by me. Administered Medications: 21:12 Drug: NS 0.9% 1000 ml Route: IV; Rate: 1 bolus; Site: left forearm; tl2 08/07 00:14 Follow up: IV Status: Completed infusion; IV Intake: 1000ml tl2 08/06 21:12 Drug: NARcan 0.4 mg Route: IVP; Site: left forearm; tl2 21:47 Follow up: Response: No adverse reaction; No change in condition tl2 21:12 Drug: Tylenol Suppository 650 mg Route: TN; tl2 22:10 Follow up: Response: No adverse reaction; Temperature is unchanged tl2 21:13 Drug: Cefepime 1 grams Route: IVPB; Rate: 200 ml/hr; Infused Over: 30 mins; Site: left tl2 forearm; 08/07 00:14 Follow up: IV Status: Completed infusion; IV Intake: 100ml tl2 08/06 21:44 Drug: NARcan 0.4 mg Route: IVP; Site: left forearm; tl2 08/07 00:15 Follow up: Response: No adverse reaction tl2 08/06 22:30 Drug: Tylenol Suppository 325 mg Route: TN; tl2 23:30 Follow up: Response: No adverse reaction; Temperature is decreased tl2 22:48 Drug: NS 0.9% 1000 ml Route: IV; Rate: 1 bolus; Site: left forearm; tl1 08/07 00:15 Follow up: IV Status: Completed infusion; IV Intake: 1000ml tl2 Point of Care Testing: Blood Glucose: 08/06 20:58 Blood Glucose: 224 mg/dL; tl1 Ranges: Critical Glucose Levels:Adult <50 mg/dl or >400 mg/dl <40 mg/dl or >180 mg/dl Disposition: 23:41 Critical Care:. Disposition: 08/06/17 22:32 Hospitalization ordered by Tom Rao for Inpatient Admission. Preliminary diagnosis are Severe sepsis without septic shock, Tubulo-interstitial nephritis, not specified as acute or chronic. - Bed requested for Telemetry/MedSurg (Inpatient). - Status is Inpatient Admission. tl2 - Condition is Serious. - Problem is new. - Symptoms have improved. UTI on Admission? Yes Critical care time excluding procedures: 23:41 Critical care time: Bedside Care: 10 minutes, Consultation: 10 minutes, Family gs Intervention: 10 minutes. Total time: 30 minutes Signatures: Dispatcher [employer] EDGiulia Chavez RN RN kl Lasagna, Tonya, RN RN tl1 Gill Green RN RN tl2 Nasir Barba MD MD Corrections: (The following items were deleted from the chart) 23:26 22:32 Hospitalization Ordered by Tom Rao MD for Inpatient Admission. Preliminary kl diagnosis is Severe sepsis without septic shock; Tubulo-interstitial nephritis, not specified as acute or chronic. Bed requested for Telemetry/MedSurg (Inpatient). Status is Inpatient Admission. Condition is Serious. Problem is new. Symptoms have improved. UTI on Admission? Yes. 08/07 00:28 08/06 23:26 08/06/2017 22:32 Hospitalization Ordered by Tom Rao MD for Inpatient tl2 Admission. Preliminary diagnosis is Severe sepsis without septic shock; Tubulo-interstitial nephritis, not specified as acute or chronic. Bed requested for Telemetry/MedSurg (Inpatient). Status is Inpatient Admission. Condition is Serious. Problem is new. Symptoms have improved. UTI on Admission? Yes. kl
--- NOTE | 2017-08-06 22:32 | ER ---
Nurse's Notes [facility] Name: Laureano Valenzuela Age: 76 yrs Sex: Male : 1940 Arrival Date: 08/06/2017 Time: 20:34 Bed 2 Private MD: Diagnosis: Severe sepsis without septic shock;Tubulo-interstitial nephritis, not specified as acute or chronic Presentation: 08/06 20:35 Presenting complaint: EMS states: Pt is at [facility] for rehab. Pt is tl2 normally AOx4. Family states that pt has been since this morning and only wakes up to verbal stimuli. Pt was 86% on RA and 94% on NRB. Pt has a pain pump in place. Temp of 102.2 axillary Pt has Out of Hospital DNR. Transition of care: patient was received from another setting of care ([facility]), [facility]. Onset of symptoms was August 06, 2017 at 08:00. Risk Assessment: Do you want to hurt yourself or someone else? Patient reports no desire to harm self or others. Initial Sepsis Screen: Does the patient meet any 2 criteria? No. Patient's initial sepsis screen is negative. Does the patient have a suspected source of infection? No. Patient's initial sepsis screen is negative. Care prior to arrival: Oxygen administered. via a non-rebreather mask. 20:35 Method Of Arrival: EMS: [facility] tl2 20:35 Acuity: [place] 2 tl2 Triage Assessment: 20:40 General: Appears in no apparent distress. Behavior is drowsy, listless, responsive to tl2 verbal and pain stimuli. Pain: Denies pain. Neuro: Level of Consciousness is lethargic, listless, Oriented to person. Cardiovascular: Denies chest pain. Cardiovascular: Heart tones S1 S2 present Capillary refill < 3 seconds Rhythm is sinus tachycardia. Respiratory: Airway is patent Respiratory effort is even, shallow, Respiratory pattern is regular. Respiratory: Breath sounds are coarse bilaterally. GI: No signs and/or symptoms were reported involving the gastrointestinal system. : Ramirez in place Urine is cloudy. Derm: Skin is pink, warm \T\ dry. Historical: - Allergies: 20:40 Codeine; tl2 20:40 HYDROCODONE; tl2 20:40 Morphine; tl2 20:40 PENICILLINS; tl2 - Home Meds: 20:40 allopurinol 300 mg Oral tab 1 tab once daily [Active]; Cefuroxime Oral 500 mg twice a tl2 day [Active]; Coreg 25 mg Oral tab 1 tab 2 times per day [Active]; dilaudid pump [Active]; furosemide 40 mg Oral tab 1 tab once daily [Active]; Insulin: Novolin 70/30 Sub-Q 20 units in am and 45 units at night [Active]; lisinopril 10 mg Oral tab 1 tab once daily [Active]; metoclopramide HCl 10 mg Oral tab 1 tab three times a day [Active]; pantoprazole 40 mg Oral TbEC 1 tab once daily [Active]; simvastatin 10 mg Oral tab 1 tab nightly [Active]; warfarin 3.5 mg Oral once daily [Active]; - PMHx: 20:40 Back pain; CHF; Chronic pain; COPD; Diabetes - IDDM; Gout; High Cholesterol; tl2 Hypertension; Myocardial infarction; - Immunization history:: Adult Immunizations up to date. - Social history:: Smoking status: unknown. - Ebola Screening: : No symptoms or risks identified at this time. Screenin:44 Abuse screen: Denies threats or abuse. Nutritional screening: No deficits noted. tl2 Tuberculosis screening: No symptoms or risk factors identified. Fall Risk Fall in past 12 months (25 points). IV access (20 points). Gait- Weak (10 pts.). Assessment: 20:40 General: see triage assessment. tl2 21:26 Reassessment: Family at bedside. Attempted to call [facility] to obtain pt's defib tl2 and pain pump information. No reply at this time. 21:30 Reassessment: used magnet to turn off pain pump, new order for second dose of 0.4 mg tl2 Narcan. 21:51 Reassessment: Pt not responding to Narcan and continues to be lethargic, only tl2 responding to loud verbal stimuli and pain. 22:03 Reassessment: notified of elevated temp, new orders see APR. tl2 22:12 Reassessment: cool wash cloths applied, will recheck temp at 2300. tl2 23:10 Reassessment: Dr. Titus ordered to take pt off BiPap and try NC. RT put pt on 3 L nc tl2 and pt is maintaining 99% O2. 08/07 00:04 Reassessment: Pt started to wake up, c/o back pain and feet pain. will call report to 2 admitting nurse. Vital Signs: 08/06 20:40 BP 105 / 64; Pulse 109; Resp 20; Temp 102.2; Pulse Ox 100% on Non-rebreather mask; tl2 Weight 90.72 kg; Height 5 ft. 10 in. (177.80 cm); Pain 0/10; 21:25 BP 121 / 68; Pulse 101; Resp 15; Pulse Ox 100% on BiPAP; tl2 22:03 BP 164 / 78; Pulse 116; Resp 26; Temp 102.7(R); Pulse Ox 100% on BiPAP; tl2 22:49 BP 121 / 66; Pulse 106; Resp 16; Pulse Ox 98% on BiPAP; tl2 23:30 BP 132 / 64; Pulse 100; Resp 23; Temp 100.8(R); Pulse Ox 99% on 3 lpm NC; tl2 20:40 Body Mass Index 28.70 (90.72 kg, 177.80 cm) tl2 [place] Coma Score: 23:54 Eye Response: to pain(2). Verbal Response: confused(4). Motor Response: localizes gs pain(5). Total: 11. ED Course: 20:34 Patient arrived in ED. tl2 20:35 Gill Green RN is Primary Nurse. tl2 20:38 Nasir Barba MD is Attending Physician. gs 20:39 Triage completed. tl2 20:40 Arm band placed on right wrist. tl2 20:44 Patient has correct armband on for positive identification. Bed in low position. Call tl2 light in reach. Side rails up X2. Adult w/ patient. 20:44 Maintain EMS IV. Dressing intact. Good blood return noted. Site clean \T\ dry. Gauge \T\ tl 2 site: 20 g L FA. 21:15 X-ray completed. Portable x-ray completed in exam room. Patient tolerated procedure kc2 well. 21:16 Chest Single View XRAY In Process Unspecified. EDMS 22:31 Tom Rao MD is Hospitalizing Provider. gs 08/07 00:26 No provider procedures requiring assistance completed. Patient admitted, IV remains in tl2 place. Administered Medications: 08/06 21:12 Drug: NS 0.9% 1000 ml Route: IV; Rate: 1 bolus; Site: left forearm; tl2 08/07 00:14 Follow up: IV Status: Completed infusion; IV Intake: 1000ml tl2 08/06 21:12 Drug: NARcan 0.4 mg Route: IVP; Site: left forearm; tl2 21:47 Follow up: Response: No adverse reaction; No change in condition tl2 21:12 Drug: Tylenol Suppository 650 mg Route: CO; tl2 22:10 Follow up: Response: No adverse reaction; Temperature is unchanged tl2 21:13 Drug: Cefepime 1 grams Route: IVPB; Rate: 200 ml/hr; Infused Over: 30 mins; Site: left tl2 forearm; 08/07 00:14 Follow up: IV Status: Completed infusion; IV Intake: 100ml tl2 08/06 21:44 Drug: NARcan 0.4 mg Route: IVP; Site: left forearm; tl2 08/07 00:15 Follow up: Response: No adverse reaction tl2 08/06 22:30 Drug: Tylenol Suppository 325 mg Route: CO; tl2 23:30 Follow up: Response: No adverse reaction; Temperature is decreased tl2 22:48 Drug: NS 0.9% 1000 ml Route: IV; Rate: 1 bolus; Site: left forearm; tl1 08/07 00:15 Follow up: IV Status: Completed infusion; IV Intake: 1000ml tl2 Point of Care Testing: Blood Glucose: 08/06 20:58 Blood Glucose: 224 mg/dL; tl1 Ranges: Intake: 08/07 00:14 IV: 1000ml; Total: 1000ml. tl2 00:14 IV: 100ml; Total: 1100ml. tl2 00:15 IV: 1000ml; Total: 2100ml. tl2 Outcome: 08/06 22:32 Decision to Hospitalize by Provider. 08/07 00:26 Admitted to Med/surg accompanied by tech, family with patient, via stretcher, room 228, tl2 with oxygen, with chart, Report called to FENG Alonso Condition: stable Discharge instructions given to family, Instructed on the need for admit. 00:28 Patient left the ED. tl2 Signatures: Dispatcher [employer] EDMS Nicole Tucker RN RN tl1 Jillian Burgess kc2 Gill Green FENG RN tl2 Nasir Barba MD MD gs
[2017-08-06 22:45] LABS: Urine Bacteria >50 /HPF (NONE SEEN); Urine Culture Reflex Order NOT NEEDED
[2017-08-06 22:46] LABS: Urine RBC >50 /HPF (NONE SEEN); Urine Volume 1 ML
--- NOTE | 2017-08-06 23:20 | P.HP ---
Certification for Inpatient Patient admitted to: Inpatient With expected LOS: >2 Midnights Practitioner: I am a practitioner with admitting privileges, knowledge of patient current condition, hospital course, and medical plan of care. Services: Services provided to patient in accordance with Admission requirements found in Title 42 Section 412.3 of the Code of Federal Regulations Patient History Date of Service: 08/06/17 Reason for admission: sepsis History of Present Illness: Mr Valenzuela is a 76 years old male with history of CAD, HTN, dibetes mellitus, chronic pain syndrome with a pain pump placed, pacemaker, anticoagulated with warfarin, Ramirez catheter placement due to urinary retention during last admission in this hospital about 10 days ago, who is usually ambulatory, alert and oriented. Since last night the patient has been more lethargic. Today, family member went to visit him to the retirement and the patient was more sleepy, had fever and he was unable to follow commands. No history of cugh, SOB or chest pain. At arrival to ED he was febrile 102.2F, lab work remarkable for leukocytosis 19.3K, lactic acid WNL but procalcitonin was elevated. He was obtunded at my encounter, but responded to noxious stimulus, and was able to follow commands. Allergies codeine [Codeine] Allergy (Mild, Verified 07/21/17 21:57) Itching/Hives/Rash hydrocodone [Hydrocodone] Allergy (Mild, Verified 07/21/17 21:57) Itching/Hives/Rash morphine Allergy (Mild, Verified 07/21/17 21:57) Itching/Hives/Rash oxycodone [Oxycodone] Allergy (Mild, Verified 07/21/17 21:57) Itching/Hives/Rash Penicillins Allergy (Mild, Verified 07/21/17 21:57) Itching/Hives/Rash Hydrocodone Allergy (Uncoded 07/21/17 21:57) Unknown Hydrocodone-Alexi Allergy (Uncoded 11/22/16 02:06) Unknown Home Medications: Allopurinol [Zyloprim] 300 mg PO DAILY 07/22/17 Carvedilol [Coreg] 25 mg PO DAILY 07/22/17 Furosemide [Lasix] 40 mg PO BID 07/22/17 Gabapentin [Gralise] 300 mg PO TID 07/22/17 Metoclopramide HCl [Reglan] 10 mg PO TID 07/22/17 Pantoprazole Sodium 40 mg PO DAILY 07/22/17 Spironolactone [Aldactone] 50 mg PO DAILY 07/22/17 Warfarin Sodium [Coumadin] 5 mg PO DAILY 07/22/17 metroNIDAZOLE [Metronidazole] 500 mg PO BID 07/22/17 Nitrofuran Macro [Macrodantin] 50 mg PO DAILY #30 cap 07/25/17 - Past Medical/Surgical History Diabetic: Yes -: CAD -: HTN -: DM -: Chronic pain -: Hyperlipidemia -: DM Neuropathy -: Gout -: Osteoarthritis -: pacemaker -: sx for pain pump insertion -: shoulder replacement BL -: L Knee replacement -: appendectemy -: CARDIAC STENTS -: PACEMAKER Psychosocial/ Personal History: , 3 children, Retired - Family History Father -: Lung disease, Cancer Mother -: Heart disease, Hypertension, Kidney disease Sister -: Heart disease - Social History Smoking Status: Former smoker Alcohol use: No CD- Drugs: No Caffeine use: No Place of Residence: [place] Review of Systems 10-point ROS is otherwise unremarkable Physical Examination - Physical Exam General: In no apparent distress, Other (obtunded) HEENT: Atraumatic, PERRLA, Mucous membr. moist/pink, EOMI, Sclerae nonicteric Neck: Supple, 2+ carotid pulse no bruit, No LAD, Without JVD or thyroid abnormality Respiratory: Clear to auscultation bilaterally, Normal air movement Cardiovascular: Normal S1 S2, No gallops Gastrointestinal: Hypoactive, No tenderness Musculoskeletal: No tenderness Integumentary: No rashes Neurological: Normal tone, Sensation intact, Normal affect Lymphatics: No axilla or inguinal lymphadenopathy - Studies Laboratory Data (last 24 hrs) 08/06/17 20:50: PT 35.1 H, INR 2.94 08/06/17 20:50: WBC 19.3 H D, Hgb 13.5 L, Hct 40.4 D, Plt Count 209 D 08/06/17 20:50: Sodium 131 L, Potassium 5.1, BUN 44 H, Creatinine 2.30 H, Glucose 252 H, Total Bilirubin 1.1 H, AST 14 L, ALT 17, Alkaline Phosphatase 62 , Lipase 181 Assessment and Plan - Problems (Diagnosis) (1) Sepsis Current Visit: Yes Status: Acute Qualifiers: Sepsis type: sepsis due to unspecified organism Qualified Code(s): A41.9 - Sepsis, unspecified organism (2) Catheter-associated urinary tract infection Current Visit: Yes Status: Acute Qualifiers: Indwelling urinary catheter type: indwelling urethral catheter Encounter type: initial encounter Qualified Code(s): T83.511A - Infection and inflammatory reaction due to indwelling urethral catheter, initial encounter; N39.0 - Urinary tract infection, site not specified (3) Acute on chronic kidney failure Current Visit: Yes Status: Acute Qualifiers: Acute renal failure type: unspecified Chronic kidney disease stage: stage 4 (severe) Qualified Code(s): N17.9 - Acute kidney failure, unspecified; N18.4 - Chronic kidney disease, stage 4 (severe) (4) Chronic anticoagulation Onset Date: 07/22/17 Current Visit: No Status: Chronic (5) Chronic pain Current Visit: No Status: Chronic Qualifiers: Chronic pain type: chronic pain syndrome Qualified Code(s): G89.4 - Chronic pain syndrome (6) Diabetes mellitus Onset Date: 01/16/15 Current Visit: No Status: Chronic Qualifiers: Diabetes mellitus type: type 2 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 Will continue with Cefepime, IV fluids, symptomatic medication for fever. Blood and urine culture are in process. - Advance Directives Does patient have a Living Will: No Does patient have a Durable POA for Healthcare: Yes - Code Status/Comfort Care Code Status Assessed: Yes Code Status: Do Not Resuscitate
[2017-08-07] MEDS ORDERED: ACETAMINOPHEN 500 MG TAB PO PRN (00:46)
[2017-08-07] MEDS ORDERED: ONDANSETRON 4 MG/2 ML VIAL IV PRN (00:46)
[2017-08-07] MEDS: INSULIN -REGULAR HUMAN 50 UNIT/0.5 ML ML SQ SCH ×4 (01:15→18:06)
[2017-08-07] MEDS: NA CHLORIDE 0.9% 1,000 ML IV SCH ×3 (01:16→21:16)
[2017-08-07 02:21] VITALS: BMI 28.9
[2017-08-07 05:03] LABS: Absolute Lymphocytes (CBC) 0.7 K/uL (0.7-4.9); Absolute Monocytes 1.8 K/uL (0.1-1.3); Absolute Neutrophil 13.6 K/uL (1.8-8.0); Basophils % 0.2 % (0-1.3); Hematocrit 35.4 % (39.6-49.0); Lymphocytes % 4.2 % (15.3-44.8); MCH 30.6 pg (27.0-35.0); MCV 90.5 fL (80-100); MPV 10.3 fL (7.6-11.3); RBC Red Blood Cell Count 3.91 M/uL (4.33-5.43)
[2017-08-07 05:13] LABS: Magnesium 2.3 mg/dL (1.8-2.4); Potassium 4.7 mmol/L (3.5-5.1)
[2017-08-07] MEDS ORDERED: SODIUM CHLORIDE 0.9% 10ML INJ IV PRN (07:36)
[2017-08-07] MEDS ORDERED: D50W 25 GM/50 ML SYRINGE IV PRN (07:38)
[2017-08-07] MEDS ORDERED: GLUCAGON 1 MG/VIAL IM PRN (07:38)
--- NOTE | 2017-08-07 07:57 | RAD REPORT ---
EXAM DESCRIPTION: RAD - Chest Single View - 08/06/2017 9:16 pm CLINICAL HISTORY: Altered mental status, shortness of breath, hypertension, history of COPD and prio r PA COMPARISON: July 23 TECHNIQUE: AP portable chest image was obtained 2113 hours . FINDINGS: Lung volumes are low. Interstitial markings are prominent but not substantially different from the comparison. Left subclavian pacemaker/ defibrillator is in place. Heart size is normal. Pulm onary vasculature not outside of normal for shallow inspiration portable exam. No measurable pleural effusion and no pneumothorax. No acute bone finding. Degenerative and postsurgical changes are presen t at each shoulder joint. Prostheses are in place. No acute aortic findings suspected. IMPRESSION: Chronic interstitial lung disease is present not substantially different from comparison . Chronic findings and shallow inspiration could mask earliest stages of interstitial edema or infiltra te.
[2017-08-07] MEDS ORDERED: CEFEPIME 2 GM VIAL IV SCH (09:00)
[2017-08-07] MEDS: CARVEDILOL 6.25 MG TAB PO SCH ×2 (09:00→21:00)
[2017-08-07] MEDS: DOCUSATE NA 100 MG CAP PO SCH (09:00)
[2017-08-07] MEDS: APIXABAN 5 MG TABLET PO SCH ×2 (09:00→21:00)
--- NOTE | 2017-08-07 09:19 | P.PN ---
Subjective Date of Service: 08/07/17 Chief Complaint: sepsis Subjective: No new changes Patient is my patient in the detention Review of Systems is unable to be obtained (patient wakes to comands. However falls immediately back to sleep) Physical Examination - Vital Signs Temperature: 96.5 F Blood Pressure: 105/57 Pulse: 91 Respirations: 18 Pulse Ox (%): 95 - Physical Exam General: In no apparent distress HEENT: Atraumatic, PERRLA, Other (mucosa is dry), EOMI Neck: Supple, JVD not distended Respiratory: Clear to auscultation bilaterally, Normal air movement Cardiovascular: Regular rate/rhythm, Normal S1 S2 Gastrointestinal: Normal bowel sounds, No tenderness Musculoskeletal: No tenderness Integumentary: No rashes Neurological: Normal speech, Normal tone, Normal affect Lymphatics: No axilla or inguinal lymphadenopathy - Studies Laboratory Data (last 24 hrs) 08/06/17 20:50: PT 35.1 H, INR 2.94 08/06/17 20:50: WBC 19.3 H D, Hgb 13.5 L, Hct 40.4 D, Plt Count 209 D 08/06/17 20:50: Sodium 131 L, Potassium 5.1, BUN 44 H, Creatinine 2.30 H, Glucose 252 H, Total Bilirubin 1.1 H, AST 14 L, ALT 17, Alkaline Phosphatase 62 , Lipase 181 Assessment & Plan - Problems (Diagnosis) (1) Sepsis Onset Date: 08/07/17 Current Visit: Yes Status: Acute Plan: Patient comes in with altered mentation. He has been in [place] for a history of urinary retention and post obstructive renal failure. He has an indwelling cath. The patient as unresponsive in the detention. Considering the negron this could be a uti. Is on appropriate antibiotics. He failed a barium swallow on the previous hospitalization. Will recheck a PA and lateral xray to rule out aspiration. Will consult Dr. Dan who placed the negron. Will also consult Dr. Batista for nephrology. Qualifiers: Sepsis type: sepsis due to unspecified organism Qualified Code(s): A41.9 - Sepsis, unspecified organism (2) Acute on chronic kidney failure Onset Date: 08/07/17 Current Visit: Yes Status: Acute Plan: post obstructive failure. Will consult nephrology Qualifiers: Acute renal failure type: unspecified Chronic kidney disease stage: stage 4 (severe) Qualified Code(s): N17.9 - Acute kidney failure, unspecified; N18.4 - Chronic kidney disease, stage 4 (severe) (3) CAD (coronary artery disease) Onset Date: 11/22/16 Current Visit: No Status: Chronic Plan: stable at this time. Dr. Goodman lowered his carvediolol. Was appropriate due to his blood pressure. Will keep him on telemetry for know. Qualifiers: Coronary Disease-Associated Artery/Lesion type: [place] artery [place] vs. transplanted heart: [place] heart Associated angina: without angina Qualified Code(s): I25.10 - Atherosclerotic heart disease of [place] coronary artery without angina pectoris (4) Diabetes mellitus Onset Date: 01/16/15 Current Visit: No Status: Chronic Plan: Hold long acting insulin. 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 As stated above his coreg has been lowered. Qualifiers: Hypertension type: essential hypertension Qualified Code(s): I10 - Essential (primary) hypertension Discharge Plan: Care Home Plan to discharge in: Greater than 2 days - Code Status/Comfort Care Code Status Assessed: No Code Status: Do Not Resuscitate Physician Review: Patient Assessed, Agree with Above Assessment and Plan Critical Care: No Time Spent Managing Pts Care (In Minutes): 30
--- NOTE | 2017-08-07 09:44 | EKG ---
Test Date: 2017-08-06 Test Time: 20:33:35 [employer] Consultant: JOSE MEASUREMENT RESULTS: Intervals: Rate: 111 WI: 184 QRSD: 118 QT: 352 QTc: 478 [place]: P: 24 WI: 184 QRS: 90 T: 73 INTERPRETIVE STATEMENTS: Sinus tachycardia Rightward axis Inferior-posterior infarct, age undetermined Abnormal ECG Compared to ECG 07/21/2017 11:41:22 Right-axis deviation now present Sinus rhythm no longer present Myocardial infarct finding still present Electronically Signed On 08-07-17 09:44:02 CDT by Jam Yanez
[2017-08-07] MEDS: PANTOPRAZOLE 40 MG INJ IVP SCH (09:59)
[2017-08-07] MEDS: INSULIN DETEMIR 100 UNIT/1 ML INSULIN SQ SCH ×2 (09:59→21:00)
--- NOTE | 2017-08-07 10:04 | RAD REPORT ---
EXAM DESCRIPTION: RAD - Chest Single View - 08/07/2017 9:35 am CLINICAL HISTORY: Pneumonia, shortness of breath COMPARISON: August 06 TECHNIQUE: AP portable chest image was obtained 0923 hours . FINDINGS: Patient has underlying fibrotic change accentuated by shallow inspiration. No peripheral c onsolidation or mass in the right lung field or upper left lung field. Left base is more limited in a ssessment. Minimal infiltrate cannot be excluded. Heart size is distorted by rotation and shallow ins piration. No cardiomegaly, failure or volume overload suspected. Left-side pacemaker/defibrillator is in place. No measurable pleural effusion and no pneumothorax. No acute bone finding. Bilateral shoul lyssa prosthesis in place along with degenerative change. No acute aortic findings suspected. IMPRESSION: No failure or volume overload suspected. Left base assessment is limited. Minimal left base pneumonia not excluded. Lung martin are otherwise clear of acute disease.
[2017-08-07] MEDS ORDERED: CEFEPIME 1 GM/100 ML BAG IV SCH (21:00)
[2017-08-07] MEDS: CEFEPIME/SWI 1gm 1 GM/10 ML SYR IV SCH (21:18)
[2017-08-08] MEDS: INSULIN -REGULAR HUMAN 50 UNIT/0.5 ML ML SQ SCH ×6 (00:22→21:28)
[2017-08-08 05:45] LABS: Absolute Lymphocytes (CBC) 0.7 K/uL (0.7-4.9); Absolute Monocytes 1.2 K/uL (0.1-1.3); Absolute Neutrophil 8.6 K/uL (1.8-8.0); Basophils % 0.3 % (0-1.3); Eosinophils % 0.1 % (0-4.4); Hematocrit 34.3 % (39.6-49.0); Lymphocytes % 6.5 % (15.3-44.8); MCH 30.9 pg (27.0-35.0); MCV 91.6 fL (80-100); MPV 10.5 fL (7.6-11.3); Monocytes % 11.8 % (3.3-12.3); RBC Red Blood Cell Count 3.75 M/uL (4.33-5.43)
[2017-08-08 06:08] LABS: Albumin 2.5 g/dL (3.4-5.0); Bilirubin Total 0.7 mg/dL (0.2-1.0); Magnesium 2.7 mg/dL (1.8-2.4); Phosphorus 3.3 mg/dL (2.5-4.9); Potassium 4.4 mmol/L (3.5-5.1); Uric Acid 6.2 mg/dL (3.5-7.2)
[2017-08-08] MEDS: NA CHLORIDE 0.9% 1,000 ML IV SCH ×2 (06:30→16:49)
[2017-08-08] MEDS: CARVEDILOL 6.25 MG TAB PO SCH ×2 (09:00→21:26)
[2017-08-08] MEDS: APIXABAN 5 MG TABLET PO SCH ×2 (09:23→21:27)
[2017-08-08] MEDS: DOCUSATE NA 100 MG CAP PO SCH (09:23)
[2017-08-08] MEDS: INSULIN DETEMIR 100 UNIT/1 ML INSULIN SQ SCH ×4 (09:24→22:02)
[2017-08-08] MEDS: PANTOPRAZOLE 40 MG INJ IVP SCH (09:26)
--- NOTE | 2017-08-08 12:02 | P.PN ---
Subjective Date of Service: 08/08/17 Chief Complaint: sepsis much more alert today Review of Systems 10-point ROS is otherwise unremarkable Physical Examination - Vital Signs Temperature: 97.3 F Blood Pressure: 154/85 Pulse: 76 Respirations: 18 Pulse Ox (%): 95 - Physical Exam General: Alert, In no apparent distress HEENT: Atraumatic, PERRLA, EOMI Neck: Supple, JVD not distended Respiratory: Clear to auscultation bilaterally, Normal air movement Cardiovascular: Regular rate/rhythm, Normal S1 S2 Gastrointestinal: Normal bowel sounds, No tenderness Musculoskeletal: No tenderness Integumentary: No rashes Neurological: Normal speech, Normal tone, Normal affect Lymphatics: No axilla or inguinal lymphadenopathy Assessment & Plan - Problems (Diagnosis) (1) Sepsis Onset Date: 08/07/17 Current Visit: Yes Status: Acute Plan: gram negatives in blood culture. Will await the antibotigram. Get a picc line. Will see which antibiotics to discharge him on Qualifiers: Sepsis type: sepsis due to unspecified organism Qualified Code(s): A41.9 - Sepsis, unspecified organism (2) Acute on chronic kidney failure Onset Date: 08/07/17 Current Visit: Yes Status: Acute Plan: post obstructive failure. Will consult nephrology Qualifiers: Acute renal failure type: unspecified Chronic kidney disease stage: stage 4 (severe) Qualified Code(s): N17.9 - Acute kidney failure, unspecified; N18.4 - Chronic kidney disease, stage 4 (severe) (3) CAD (coronary artery disease) Onset Date: 11/22/16 Current Visit: No Status: Chronic Plan: stable at this time. Dr. Goodman lowered his carvediolol. Was appropriate due to his blood pressure. Will keep him on telemetry for know. Qualifiers: Coronary Disease-Associated Artery/Lesion type: [place] artery [place] vs. transplanted heart: [place] heart Associated angina: without angina Qualified Code(s): I25.10 - Atherosclerotic heart disease of [place] coronary artery without angina pectoris (4) Diabetes mellitus Onset Date: 01/16/15 Current Visit: No Status: Chronic Plan: Hold long acting insulin. 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 As stated above his coreg has been lowered. Qualifiers: Hypertension type: essential hypertension Qualified Code(s): I10 - Essential (primary) hypertension Discharge Plan: [facility] Plan to discharge in: 24 Hours - Code Status/Comfort Care Code Status Assessed: No Code Status: Do Not Resuscitate Physician Review: Patient Assessed, Agree with Above Assessment and Plan Critical Care: No Time Spent Managing Pts Care (In Minutes): 25
--- NOTE | 2017-08-08 14:22 | RAD REPORT ---
EXAM DESCRIPTION: RAD - Barium Swallow Modified - 08/08/2017 2:17 pm CLINICAL HISTORY: Suspected aspiration COMPARISON: Barium Swallow Modified dated 07/23/2017 TECHNIQUE: The patient was given liquid, semi-solid and solid forms of barium. Lateral view fluorosc opic imaging was performed in conjunction with speech pathology service. FINDINGS: Deep laryngeal penetration: not cleared with thin via teaspoon resulting in aspiration by way of gravity. Aspiration: no cough with large sip of nectar. Severe pharyngeal residue: Vallecular with all consistences. Significantly poor lingual control, poor anterior-posterior transfer. Delayed swallow reflex. Reduc ed hyolaryngeal excursion. Total fluoroscopy time: 4 minutes and 5 seconds. IMPRESSION: Positive for aspiration.
[2017-08-08] MEDS ORDERED: GLUCAGON 1 MG/VIAL IM PRN (16:27)
[2017-08-08] MEDS ORDERED: D50W 25 GM/50 ML SYRINGE IV PRN (16:27)
--- NOTE | 2017-08-08 17:54 | P.CNS ---
Date of Consult: 08/08/17 Reason for Consult: LIZBETH Requesting Physician: Jabari Choudhury Chief Complaint: sepsis History of Present Illness: Mr Valenzuela is a 76 years old male with history of CAD, HTN, dibetes mellitus, chronic pain syndrome with a pain pump placed, pacemaker, anticoagulated with warfarin, Ramirez catheter placement due to urinary retention during last admission in this hospital about 10 days ago, who is usually ambulatory, alert and oriented. Since last night the patient has been more lethargic. Today, family member went to visit him to the long term and the patient was more sleepy, had fever and he was unable to follow commands. No history of cugh, SOB or chest pain. At arrival to ED he was febrile 102.2F, lab work remarkable for leukocytosis 19.3K, lactic acid WNL but procalcitonin was elevated. He was obtunded at my encounter, but responded to noxious stimulus, and was able to follow commands. 23:41 This 76 yrs old Male presents to ER via EMS with complaints of Altered Mental gs Status, Breathing Difficulty. 23:41 The patient presents with confusion, decreased mental status. Onset: The gs symptoms/episode began/occurred yesterday. Possible causes: seizure, sepsis. Associated signs and symptoms: Pertinent positives: fever. The patient has experienced similar episodes in the past, a few times. The patient has not recently seen a physician. 23:41 Unable to obtain HPI due to patient distress. gs Allergies codeine [Codeine] Allergy (Mild, Verified 07/21/17 21:57) Itching/Hives/Rash hydrocodone [Hydrocodone] Allergy (Mild, Verified 08/07/17 02:25) Itching/Hives/Rash morphine Allergy (Mild, Verified 08/07/17 02:25) Itching/Hives/Rash oxycodone [Oxycodone] Allergy (Mild, Verified 08/07/17 02:25) Itching/Hives/Rash Penicillins Allergy (Mild, Verified 08/07/17 02:25) Itching/Hives/Rash Hydrocodone Allergy (Uncoded 07/21/17 21:57) Unknown Hydrocodone-Alexi Allergy (Uncoded 11/22/16 02:06) Unknown Home medications list reviewed: Yes Home Medications: Carvedilol [Coreg] 25 mg PO DAILY 07/22/17 Furosemide [Lasix] 40 mg PO BID 07/22/17 Gabapentin [Gralise] 300 mg PO TID 07/22/17 Metoclopramide HCl [Reglan] 10 mg PO TID 07/22/17 Spironolactone [Aldactone] 50 mg PO DAILY 07/22/17 metroNIDAZOLE [Metronidazole] 500 mg PO BID 07/22/17 Nitrofuran Macro [Macrodantin] 50 mg PO DAILY #30 cap 07/25/17 Allopurinol [Zyloprim*] 100 mg PO DAILY 08/07/17 Apixaban [Eliquis] 5 mg PO BID 08/07/17 Docusate [Colace Cap*] 100 mg PO BID 08/07/17 Insulin Aspart [Novolog Flexpen] See Protocol SQ ACHS 08/07/17 Insulin Detemir [Levemir] 15 units SQ DAILY 08/07/17 Mag Hydroxide 8% [Milk Of Magnesia*] 30 ml PO ONCE PRN 08/07/17 Omeprazole [Prilosec] 40 mg PO DAILY 08/07/17 - Past Medical/Surgical History Diabetic: Yes -: CAD -: HTN -: DM -: Chronic pain -: Hyperlipidemia -: DM Neuropathy -: Gout -: Osteoarthritis -: pacemaker -: sx for pain pump insertion -: shoulder replacement BL -: L Knee replacement -: appendectemy -: CARDIAC STENTS -: PACEMAKER Psychosocial/ Personal History: , 3 children, Retired - Family History Father Medical History: Lung disease, Cancer Mother Medical History: Heart disease, Hypertension, Kidney disease Sister Medical History: Heart disease - Social History Smoking Status: Unknown if ever smoked Alcohol use: No CD- Drugs: No Caffeine use: No Place of Residence: [place] Review of Systems 10-point ROS is otherwise unremarkable General: Weakness, Malaise Respiratory: Cough Physical Examination Temp Pulse Resp BP Pulse Ox 97.5 F 69 18 158/69 H 96 08/08/17 16:00 08/08/17 16:00 08/08/17 16:00 08/08/17 16:00 08/08/17 16:00 General: Alert, Oriented x3, Cooperative HEENT: Atraumatic Neck: Supple Respiratory: Clear to auscultation bilaterally, Normal air movement Cardiovascular: No edema, Regular rate/rhythm Gastrointestinal: Normal bowel sounds, Soft and benign, Distended Musculoskeletal: No clubbing, No contractures, No warmth Integumentary: No rashes, No cyanosis Neurological: Abnormal speech Blood work reviewed in the chart. Serum creatinine 2.10 Imagings Data: EXAM DESCRIPTION: RAD - Chest Single View - 08/07/2017 9:35 am CLINICAL HISTORY: Pneumonia, shortness of breath COMPARISON: August 06 TECHNIQUE: AP portable chest image was obtained 0923 hours . FINDINGS: Patient has underlying fibrotic change accentuated by shallow inspiration. No peripheral consolidation or mass in the right lung field or upper left lung field. Left base is more limited in assessment. Minimal infiltrate cannot be excluded. Heart size is distorted by rotation and shallow inspiration. No cardiomegaly, failure or volume overload suspected. Left-side pacemaker/defibrillator is in place. No measurable pleural effusion and no pneumothorax. No acute bone finding. Bilateral shoulder prosthesis in place along with degenerative change. No acute aortic findings suspected. IMPRESSION: No failure or volume overload suspected. Left base assessment is limited. Minimal left base pneumonia not excluded. Lung martin are otherwise clear of acute disease. Conclusions/Impression: A/ LIZBETH. CKD III. Sepsis. Acute Cystitis. Proteus. DM II with CKD. HTN with CKD. Anemia in chronic illness. Thrombocytopenia. Moderate malnutrition. P/ Continue current POC and Medications. Agree with abx. IVF adjusted. 1/2NS Hold diuretics. Titrate insulin as needed. Plan for swallow study. Advance diet as tolerated. No NSAIDs. AM labs. Daily weight. Thank you kindly for the consultation. Case discussed with Dr. Choudhury.
[2017-08-08] MEDS: CEFEPIME/SWI 1gm 1 GM/10 ML SYR IV SCH (20:40)
--- NOTE | 2017-08-08 20:40 | RAD REPORT ---
EXAM DESCRIPTION: RAD - Chest Single View - 08/08/2017 8:13 pm CLINICAL HISTORY: Device placement PICC line placement COMPARISON: August 07 FINDINGS: A PICC line has been inserted with its tip in the superior vena cava. The lungs appear clear of acute infiltrate. The heart is mildly enlarged. Pacemaker leads are in plac e IMPRESSION: PICC line with its tip in the superior vena cava
[2017-08-09] MEDS: NACHLORIDE 0.45% 1,000 ML IV SCH ×3 (01:17→20:32)
[2017-08-09] MEDS: INSULIN -REGULAR HUMAN 50 UNIT/0.5 ML ML SQ SCH ×4 (07:30→21:31)
[2017-08-09] MEDS: INSULIN DETEMIR 100 UNIT/1 ML INSULIN SQ SCH ×2 (08:58→21:32)
[2017-08-09] MEDS: DOCUSATE NA 100 MG CAP PO SCH (08:59)
[2017-08-09] MEDS: CARVEDILOL 6.25 MG TAB PO SCH ×2 (08:59→20:35)
[2017-08-09] MEDS: APIXABAN 5 MG TABLET PO SCH ×2 (08:59→20:44)
[2017-08-09] MEDS: PANTOPRAZOLE 40 MG INJ IVP SCH (09:00)
--- NOTE | 2017-08-09 12:14 | P.PN ---
Subjective Date of Service: 08/09/17 Chief Complaint: sepsis much more alert today Review of Systems 10-point ROS is otherwise unremarkable Physical Examination - Vital Signs Temperature: 97.6 F Blood Pressure: 178/82 Pulse: 76 Respirations: 20 Pulse Ox (%): 97 - Physical Exam General: Alert, In no apparent distress HEENT: Atraumatic, PERRLA, EOMI Neck: Supple, JVD not distended Respiratory: Clear to auscultation bilaterally, Normal air movement Cardiovascular: Regular rate/rhythm, Normal S1 S2 Gastrointestinal: Normal bowel sounds, No tenderness Musculoskeletal: No tenderness Integumentary: No rashes Neurological: Normal speech, Normal tone, Normal affect Lymphatics: No axilla or inguinal lymphadenopathy - Studies Microbiology Data (last 24 hrs): 08/06/17 21:30 Catheterized Urine [place] Count - Final >100,000 CFU/ML. 08/06/17 21:30 Catheterized Urine - Final Proteus Mirabilis 08/06/17 21:10 Blood - Blood Aerobic Blood Culture - Final Proteus Mirabilis 08/06/17 21:10 Blood - Blood Gram Stain - Final 08/06/17 21:10 Blood - Blood Anaerobic Blood Culture - Final Proteus Mirabilis 08/06/17 21:10 Blood - Blood Gram Stain - Final 08/06/17 20:50 Blood - Blood Aerobic Blood Culture - Final Proteus Mirabilis 08/06/17 20:50 Blood - Blood Gram Stain - Final 08/06/17 20:50 Blood - Blood Anaerobic Blood Culture - Final Proteus Mirabilis 08/06/17 20:50 Blood - Blood Gram Stain - Final Assessment & Plan - Problems (Diagnosis) (1) Sepsis Onset Date: 08/07/17 Current Visit: Yes Status: Acute Plan: p. Mirables. Multidrug sensitive. Will switch him to ceftriaxone. Qualifiers: Qualified Code(s): A41.9 - Sepsis, unspecified organism (2) Acute on chronic kidney failure Onset Date: 08/07/17 Current Visit: Yes Status: Acute Plan: post obstructive failure. slowly improving. Baseline creatine is approx 1.3. do not have labs. Will keep him one more day to allow improved kidney function. He is slowly improving Qualifiers: Qualified Code(s): N17.9 - Acute kidney failure, unspecified; N18.4 - Chronic kidney disease, stage 4 (severe) (3) CAD (coronary artery disease) Onset Date: 11/22/16 Current Visit: No Status: Chronic Plan: stable at this time. Dr. Goodman lowered his carvediolol. Was appropriate due to his blood pressure. Will keep him on telemetry for know. Qualifiers: Qualified Code(s): I25.10 - Atherosclerotic heart disease of [place] coronary artery without angina pectoris (4) Diabetes mellitus Onset Date: 01/16/15 Current Visit: No Status: Chronic Plan: Hold long acting insulin. 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 As stated above his coreg has been lowered. Qualifiers: Qualified Code(s): I10 - Essential (primary) hypertension Discharge Plan: Long Term Plan to discharge in: 24 Hours - Code Status/Comfort Care Code Status Assessed: No Code Status: Full Code Physician Review: Patient Assessed, Agree with Above Assessment and Plan Critical Care: No Time Spent Managing Pts Care (In Minutes): 25
--- NOTE | 2017-08-09 12:18 | P.PN ---
Date of Service: 08/09/17 Vital Signs Temp Pulse Resp BP Pulse Ox 97.6 F 76 20 178/82 H 97 08/09/17 12:14 08/09/17 12:14 08/09/17 12:14 08/09/17 12:14 08/09/17 12:14 Medications Acetaminophen (Tylenol -Extra Strength) 500 mg PO Q4HP PRN PRN Reason: [id number] Stop: 09/06/17 00:47 Apixaban (Eliquis) 5 mg PO BID [facility] Stop: 09/06/17 09:01 Last Admin: 08/09/17 08:59 Dose: 5 mg Carvedilol (Coreg) 6.25 mg PO BID [facility] Stop: 09/06/17 09:01 Last Admin: 08/09/17 08:59 Dose: 6.25 mg Dextrose (Dextrose 50% Syringe) 12.5 gm IV PRN PRN; Protocol PRN Reason: HYPOGLYCEMIA Stop: 09/07/17 16:28 Docusate Sodium (Colace Cap) 100 mg PO DAILY [facility] Stop: 09/06/17 09:01 Last Admin: 08/09/17 08:59 Dose: 100 mg Glucagon (Glucagen) 1 mg IM 1X PRN; Protocol PRN Reason: HYPOGLYCEMIA Stop: 09/07/17 16:28 Sodium Chloride (Sodium Chloride 0.45%) 1,000 mls @ 100 mls/hr IV .Q10H [facility] Stop: 09/08/17 01:01 Last Admin: 08/09/17 11:00 Dose: 1,000 mls Ceftriaxone Sodium/Sodium Chloride (Rocephin 1gm/50 Ml Ivpb) 50 mls @ 100 mls/ hr IV DAILY [facility]; Protocol Stop: 09/09/17 09:01 Insulin Detemir (Levemir) 7 units SQ BID [facility] Stop: 09/08/17 09:01 Last Admin: 08/09/17 08:58 Dose: Not Given Insulin Human Regular (Novolin -R) 0 unit SQ ACHS [facility]; Protocol Stop: 09/07/17 16:31 Last Admin: 08/09/17 11:07 Dose: Not Given Ondansetron HCl (Zofran) 4 mg IV Q6HP PRN PRN Reason: NAUSEA / VOMITING Stop: 09/06/17 00:47 Pantoprazole Sodium (Protonix Inj) 40 mg IVP DAILY [facility] Stop: 09/06/17 09:01 Last Admin: 08/09/17 09:00 Dose: 40 mg Sodium Chloride (Normal Saline Flush) 10 ml IV BID [facility] Stop: 09/06/17 09:01 Last Admin: 08/09/17 08:59 Dose: 10 ml Sodium Chloride (Sodium Chloride 10 Ml Inj) 10 ml IV UD PRN PRN Reason: Diluant Stop: 09/06/17 07:37 Microbiology Results 08/06/17 21:30 Catheterized Urine [place] Count - Final >100,000 CFU/ML. 08/06/17 21:30 Catheterized Urine - Final Proteus Mirabilis 08/06/17 21:10 Blood - Blood Aerobic Blood Culture - Final Proteus Mirabilis 08/06/17 21:10 Blood - Blood Gram Stain - Final 08/06/17 21:10 Blood - Blood Anaerobic Blood Culture - Final Proteus Mirabilis 08/06/17 21:10 Blood - Blood Gram Stain - Final 08/06/17 20:50 Blood - Blood Aerobic Blood Culture - Final Proteus Mirabilis 08/06/17 20:50 Blood - Blood Gram Stain - Final 08/06/17 20:50 Blood - Blood Anaerobic Blood Culture - Final Proteus Mirabilis 08/06/17 20:50 Blood - Blood Gram Stain - Final Assessment/ Plan: Nephrology. Feeling better today. +Appetite CPS stable without CP or SOB. No acute events overnight. Does not feel that he is ready to go home today. Vitals, medications, blood work and imaging reviewed in the chart. General: Alert, Oriented x3, Cooperative HEENT: Atraumatic Neck: Supple Respiratory: Clear to auscultation bilaterally, Normal air movement Cardiovascular: No edema, Regular rate/rhythm Gastrointestinal: Normal bowel sounds, Soft and benign, Distended Musculoskeletal: No clubbing, No contractures, No warmth Integumentary: No rashes, No cyanosis Neurological: Abnormal speech Blood work reviewed in the chart. Serum creatinine 2.10 Imagings Data: EXAM DESCRIPTION: RAD - Chest Single View - 08/07/2017 9:35 am CLINICAL HISTORY: Pneumonia, shortness of breath COMPARISON: August 06 TECHNIQUE: AP portable chest image was obtained 0923 hours . FINDINGS: Patient has underlying fibrotic change accentuated by shallow inspiration. No peripheral consolidation or mass in the right lung field or upper left lung field. Left base is more limited in assessment. Minimal infiltrate cannot be excluded. Heart size is distorted by rotation and shallow inspiration. No cardiomegaly, failure or volume overload suspected. Left-side pacemaker/defibrillator is in place. No measurable pleural effusion and no pneumothorax. No acute bone finding. Bilateral shoulder prosthesis in place along with degenerative change. No acute aortic findings suspected. IMPRESSION: No failure or volume overload suspected. Left base assessment is limited. Minimal left base pneumonia not excluded. Lung martin are otherwise clear of acute disease. Conclusions/Impression: A/ LIZBETH in the setting of sepsis. CKD III. Sepsis. Acute Cystitis. Proteus. DM II with CKD. HTN with CKD. Anemia in chronic illness. Thrombocytopenia. Moderate malnutrition. P/ Continue current POC and Medications. Agree with abx changes. Continue IVF. Titrate insulin as needed. Advance diet as tolerated. No NSAIDs. AM labs. Daily weight. Case discussed with Dr. Choudhury.
[2017-08-09] MEDS: CEFTRIAXONE/SWI 1gm 1 GM/10 ML SYR IV SCH (20:31)
[2017-08-09] MEDS ORDERED: cloNIDine HCl 0.1 MG TAB PO ONE (21:21)
[2017-08-10] MEDS: NACHLORIDE 0.45% 1,000 ML IV SCH ×2 (04:27→17:21)
[2017-08-10 04:31] LABS: Absolute Lymphocytes (CBC) 0.8 K/uL (0.7-4.9); Absolute Monocytes 1.1 K/uL (0.1-1.3); Absolute Neutrophil 8.2 K/uL (1.8-8.0); Basophils % 0.4 % (0-1.3); Eosinophils % 0.7 % (0-4.4); Hematocrit 33.2 % (39.6-49.0); Lymphocytes % 7.6 % (15.3-44.8); MCH 30.5 pg (27.0-35.0); MCV 90.7 fL (80-100); Monocytes % 10.6 % (3.3-12.3); RBC Red Blood Cell Count 3.67 M/uL (4.33-5.43)
[2017-08-10 04:50] LABS: Albumin 2.3 g/dL (3.4-5.0); Bilirubin Total 0.7 mg/dL (0.2-1.0); Magnesium 2.3 mg/dL (1.8-2.4); Phosphorus 2.6 mg/dL (2.5-4.9); Potassium 3.6 mmol/L (3.5-5.1); Protein, Total 7.2 g/dL (6.4-8.2); Uric Acid 4.7 mg/dL (3.5-7.2)
[2017-08-10] MEDS ORDERED: KCL 20 MEQ/100 mL IVPB 20 MEQ/100 ML BAG IV SCH (06:14)
[2017-08-10] MEDS: INSULIN -REGULAR HUMAN 50 UNIT/0.5 ML ML SQ SCH ×4 (07:30→20:29)
[2017-08-10 08:08] LABS: Urine Appearance CLEAR; Urine Bilirubin NEGATIVE (NEG); Urine Blood 2+ (NEG); Urine Color YELLOW; Urine Glucose 1+ (NEG); Urine Protein 1+ (NEG)
[2017-08-10 08:27] LABS: Urine Bacteria 20-50 /HPF (NONE SEEN); Urine Culture Reflex Order REFLEXED
[2017-08-10] MEDS: PANTOPRAZOLE 40 MG INJ IVP SCH (08:48)
[2017-08-10] MEDS: INSULIN DETEMIR 100 UNIT/1 ML INSULIN SQ SCH ×2 (08:48→20:30)
[2017-08-10] MEDS: CARVEDILOL 6.25 MG TAB PO SCH ×2 (08:48→20:31)
[2017-08-10] MEDS: DOCUSATE NA 100 MG CAP PO SCH (08:48)
[2017-08-10] MEDS: APIXABAN 5 MG TABLET PO SCH ×2 (08:49→20:31)
[2017-08-10] MEDS ORDERED: CEFTRIAXONE 1 GM/NS 50 ML 50 ML IV SCH (09:00)
[2017-08-10] MEDS ORDERED: AMLODIPINE 5 MG TAB PO SCH (09:00)
[2017-08-10] MEDS ORDERED: CEFTRIAXONE 1 GM/NS 50 ML 1 GM/50 ML BAG IV SCH (09:00)
[2017-08-10 10:12] LABS: Urine Protein/Creatinine Ratio 1.55 ratio (<0.15)
--- NOTE | 2017-08-10 11:05 | P.PN ---
Subjective Date of Service: 08/10/17 Chief Complaint: sepsis much more alert today. Does not want to return to [place]. Review of Systems 10-point ROS is otherwise unremarkable Physical Examination - Vital Signs Temperature: 97.8 F Blood Pressure: 157/74 Pulse: 71 Respirations: 18 Pulse Ox (%): 98 - Physical Exam General: Alert, In no apparent distress HEENT: Atraumatic, PERRLA, EOMI Neck: Supple, JVD not distended Respiratory: Clear to auscultation bilaterally, Normal air movement Cardiovascular: Regular rate/rhythm, Normal S1 S2 Gastrointestinal: Normal bowel sounds, No tenderness Musculoskeletal: No tenderness Integumentary: No rashes Neurological: Normal speech, Normal tone, Normal affect Lymphatics: No axilla or inguinal lymphadenopathy - Studies Microbiology Data (last 24 hrs): 08/06/17 21:30 Catheterized Urine [place] Count - Final >100,000 CFU/ML. 08/06/17 21:30 Catheterized Urine - Final Proteus Mirabilis 08/06/17 21:10 Blood - Blood Aerobic Blood Culture - Final Proteus Mirabilis 08/06/17 21:10 Blood - Blood Gram Stain - Final 08/06/17 21:10 Blood - Blood Anaerobic Blood Culture - Final Proteus Mirabilis 08/06/17 21:10 Blood - Blood Gram Stain - Final 08/06/17 20:50 Blood - Blood Aerobic Blood Culture - Final Proteus Mirabilis 08/06/17 20:50 Blood - Blood Gram Stain - Final 08/06/17 20:50 Blood - Blood Anaerobic Blood Culture - Final Proteus Mirabilis 08/06/17 20:50 Blood - Blood Gram Stain - Final Assessment & Plan - Problems (Diagnosis) (1) Sepsis Onset Date: 08/07/17 Current Visit: Yes Status: Acute Plan: p. Mirables. Multidrug sensitive. Will switch him to ceftriaxone. Qualifiers: Sepsis type: sepsis due to unspecified organism Qualified Code(s): A41.9 - Sepsis, unspecified organism (2) Acute on chronic kidney failure Onset Date: 08/07/17 Current Visit: Yes Status: Acute Plan: post obstructive failure. Patient is as at his baseline Qualifiers: Acute renal failure type: unspecified Chronic kidney disease stage: stage 4 (severe) Qualified Code(s): N17.9 - Acute kidney failure, unspecified; N18.4 - Chronic kidney disease, stage 4 (severe) (3) CAD (coronary artery disease) Onset Date: 11/22/16 Current Visit: No Status: Chronic Plan: stable at this time. Dr. Goodman lowered his carvediolol. Was appropriate due to his blood pressure. Will keep him on telemetry for know. Qualifiers: Coronary Disease-Associated Artery/Lesion type: [place] artery [place] vs. transplanted heart: [place] heart Associated angina: without angina Qualified Code(s): I25.10 - Atherosclerotic heart disease of [place] coronary artery without angina pectoris (4) Diabetes mellitus Onset Date: 01/16/15 Current Visit: No Status: Chronic Plan: Hold long acting insulin. 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 As stated above his coreg has been lowered. Qualifiers: Hypertension type: essential hypertension Qualified Code(s): I10 - Essential (primary) hypertension Physician Review: Patient Assessed, Agree with Above Assessment and Plan
[2017-08-10] MEDS: CEFTRIAXONE/SWI 1gm 1 GM/10 ML SYR IV SCH (20:29)
--- NOTE | 2017-08-10 22:21 | P.PN ---
Date of Service: 08/10/17 Vital Signs Temp Pulse Resp BP Pulse Ox 97.0 F 72 18 160/76 H 98 08/10/17 20:00 08/10/17 20:31 08/10/17 20:00 08/10/17 20:31 08/10/17 20:00 Medications Acetaminophen (Tylenol -Extra Strength) 500 mg PO Q4HP PRN PRN Reason: [id number] Stop: 09/06/17 00:47 Amlodipine Besylate (Norvasc) 5 mg PO BID [facility] Stop: 09/09/17 22:31 Apixaban (Eliquis) 5 mg PO BID DELIO Stop: 09/06/17 09:01 Last Admin: 08/10/17 20:31 Dose: 5 mg Carvedilol (Coreg) 12.5 mg PO BID [facility] Stop: 09/10/17 09:01 Dextrose (Dextrose 50% Syringe) 12.5 gm IV PRN PRN; Protocol PRN Reason: HYPOGLYCEMIA Stop: 09/07/17 16:28 Docusate Sodium (Colace Cap) 100 mg PO DAILY DELIO Stop: 09/06/17 09:01 Last Admin: 08/10/17 08:48 Dose: 100 mg Glucagon (Glucagen) 1 mg IM 1X PRN; Protocol PRN Reason: HYPOGLYCEMIA Stop: 09/07/17 16:28 Sodium Chloride (Sodium Chloride 0.45%) 1,000 mls @ 100 mls/hr IV .Q10H DELIO Stop: 09/08/17 01:01 Last Admin: 08/10/17 17:21 Dose: 1,000 mls Ceftriaxone Sodium/Sodium Chloride (Rocephin 1 Gm/10 Ml Swi Ivp) 1 gm in 10 mls @ 600 mls/hr IV 2100 [facility] Stop: 09/08/17 21:01 Last Admin: 08/10/17 20:29 Dose: 10 mls Insulin Detemir (Levemir) 7 units SQ BID DELIO Stop: 09/08/17 09:01 Last Admin: 08/10/17 20:30 Dose: 7 units Insulin Human Regular (Novolin -R) 0 unit SQ ACHS DELIO; Protocol Stop: 09/07/17 16:31 Last Admin: 08/10/17 20:29 Dose: 4 unit Ondansetron HCl (Zofran) 4 mg IV Q6HP PRN PRN Reason: NAUSEA / VOMITING Stop: 09/06/17 00:47 Pantoprazole Sodium (Protonix Inj) 40 mg IVP DAILY DELIO Stop: 09/06/17 09:01 Last Admin: 08/10/17 08:48 Dose: 40 mg Sodium Chloride (Normal Saline Flush) 10 ml IV BID DELIO Stop: 09/06/17 09:01 Last Admin: 08/10/17 20:38 Dose: 10 ml Sodium Chloride (Sodium Chloride 10 Ml Inj) 10 ml IV UD PRN PRN Reason: Diluant Stop: 09/06/17 07:37 Microbiology Results 08/06/17 21:30 Catheterized Urine [place] Count - Final >100,000 CFU/ML. 08/06/17 21:30 Catheterized Urine - Final Proteus Mirabilis 08/06/17 21:10 Blood - Blood Aerobic Blood Culture - Final Proteus Mirabilis 08/06/17 21:10 Blood - Blood Gram Stain - Final 08/06/17 21:10 Blood - Blood Anaerobic Blood Culture - Final Proteus Mirabilis 08/06/17 21:10 Blood - Blood Gram Stain - Final 08/06/17 20:50 Blood - Blood Aerobic Blood Culture - Final Proteus Mirabilis 08/06/17 20:50 Blood - Blood Gram Stain - Final 08/06/17 20:50 Blood - Blood Anaerobic Blood Culture - Final Proteus Mirabilis 08/06/17 20:50 Blood - Blood Gram Stain - Final Assessment/ Plan: Nephrology. Feeling better today. +Appetite CPS stable without CP or SOB. No acute events overnight. Vitals, medications, blood work and imaging reviewed in the chart. General: Alert, Oriented x3, Cooperative HEENT: Atraumatic Neck: Supple Respiratory: Clear to auscultation bilaterally, Normal air movement Cardiovascular: No edema, Regular rate/rhythm Gastrointestinal: Normal bowel sounds, Soft and benign, Distended Musculoskeletal: No clubbing, No contractures, No warmth Integumentary: No rashes, No cyanosis Neurological: Abnormal speech Blood work reviewed in the chart. Serum creatinine 2.10 Imagings Data: EXAM DESCRIPTION: RAD - Chest Single View - 08/07/2017 9:35 am CLINICAL HISTORY: Pneumonia, shortness of breath COMPARISON: August 06 TECHNIQUE: AP portable chest image was obtained 0923 hours . FINDINGS: Patient has underlying fibrotic change accentuated by shallow inspiration. No peripheral consolidation or mass in the right lung field or upper left lung field. Left base is more limited in assessment. Minimal infiltrate cannot be excluded. Heart size is distorted by rotation and shallow inspiration. No cardiomegaly, failure or volume overload suspected. Left-side pacemaker/defibrillator is in place. No measurable pleural effusion and no pneumothorax. No acute bone finding. Bilateral shoulder prosthesis in place along with degenerative change. No acute aortic findings suspected. IMPRESSION: No failure or volume overload suspected. Left base assessment is limited. Minimal left base pneumonia not excluded. Lung martin are otherwise clear of acute disease. Conclusions/Impression: A/ LIZBETH in the setting of sepsis. CKD III. Sepsis. Acute Cystitis. Proteus. DM II with CKD. HTN with CKD. Anemia in chronic illness. Thrombocytopenia. Moderate malnutrition. P/ Continue current POC and Medications. Increase Amlodipine and Carvedilol. Continue IVF. Titrate insulin as needed. Advance diet as tolerated. No NSAIDs. AM labs. Daily weight.
[2017-08-10] MEDS: AMLODIPINE 5 MG TAB PO SCH (22:42)
[2017-08-11] MEDS: NACHLORIDE 0.45% 1,000 ML IV SCH ×2 (02:43→13:00)
[2017-08-11] MEDS: INSULIN -REGULAR HUMAN 50 UNIT/0.5 ML ML SQ SCH ×4 (07:30→20:32)
[2017-08-11] MEDS: DOCUSATE NA 100 MG CAP PO SCH (09:52)
[2017-08-11] MEDS: CARVEDILOL 6.25 MG TAB PO SCH ×2 (09:53→20:31)
[2017-08-11] MEDS: APIXABAN 5 MG TABLET PO SCH ×2 (09:55→20:25)
[2017-08-11] MEDS: AMLODIPINE 5 MG TAB PO SCH ×2 (09:55→20:25)
[2017-08-11] MEDS: INSULIN DETEMIR 100 UNIT/1 ML INSULIN SQ SCH ×2 (09:55→16:51)
[2017-08-11] MEDS: PANTOPRAZOLE 40 MG INJ IVP SCH (09:56)
[2017-08-11] MEDS ORDERED: GLUCAGON 1 MG/VIAL IM PRN (12:17)
[2017-08-11] MEDS ORDERED: D50W 25 GM/50 ML SYRINGE IV PRN (12:17)
[2017-08-11 12:21] LABS: Urine Appearance CLEAR; Urine Bilirubin NEGATIVE (NEG); Urine Blood 1+ (NEG); Urine Color YELLOW; Urine Glucose 2+ (NEG); Urine Protein TRACE (NEG)
--- NOTE | 2017-08-11 12:26 | P.DS ---
Admission Date: 08/06/17 Discharge Date: 08/11/17 Disposition: TRANSFER TO [facility] Discharge Condition: FAIR Reason for Admission: sepsis - Problems (1) Sepsis Onset Date: 08/07/17 Current Visit: Yes Status: Acute Qualifiers: Sepsis type: sepsis due to unspecified organism Qualified Code(s): A41.9 - Sepsis, unspecified organism (2) Acute on chronic kidney failure Onset Date: 08/07/17 Current Visit: Yes Status: Acute Qualifiers: Acute renal failure type: unspecified Chronic kidney disease stage: stage 4 (severe) Qualified Code(s): N17.9 - Acute kidney failure, unspecified; N18.4 - Chronic kidney disease, stage 4 (severe) (3) CAD (coronary artery disease) Onset Date: 11/22/16 Current Visit: No Status: Chronic Qualifiers: Coronary Disease-Associated Artery/Lesion type: [place] artery [place] vs. transplanted heart: [place] heart Associated angina: without angina Qualified Code(s): I25.10 - Atherosclerotic heart disease of [place] coronary artery without angina pectoris (4) Diabetes mellitus Onset Date: 01/16/15 Current Visit: No Status: Chronic Qualifiers: Diabetes mellitus type: type 2 Diabetes mellitus shelter insulin use: with shelter use Diabetes mellitus complication status: with hyperglycemia Qualified Code(s): E11.65 - Type 2 diabetes mellitus with hyperglycemia; Z79.4 - [facility] (current) use of insulin (5) Hyperlipidemia Onset Date: 01/16/15 Current Visit: No Status: Chronic Qualifiers: Hyperlipidemia type: mixed hyperlipidemia Qualified Code(s): E78.2 - Mixed hyperlipidemia (6) Hypertension Onset Date: 01/16/15 Current Visit: No Status: Chronic Qualifiers: Hypertension type: essential hypertension Qualified Code(s): I10 - Essential (primary) hypertension Brief History of Present Illness: patient was presented with altered mental status. [facility]. Had a negron catheter for obstructive nephropathy. Was found to have urosepsis. Admitted on Maxipine. Hospital Course: Patient was found to have p. Mirabelis in blood and urine. Switched from Maxipine to ceftriaxone. For economic reasons. He is doing well. Can go back to [place]. However family and patient wish to go to a different [facility]. Will consult social sciences lecturer for placement in an other facility. Wish the patient the best of luck. Vital Signs/Physical Exam: Temp Pulse Resp BP Pulse Ox 97.6 F 75 18 160/77 H 97 08/11/17 08:00 08/11/17 09:55 08/11/17 08:00 08/11/17 09:55 08/11/17 08:00 General: Alert, In no apparent distress HEENT: Atraumatic, PERRLA, EOMI Neck: Supple, JVD not distended Respiratory: Clear to auscultation bilaterally, Normal air movement Cardiovascular: Regular rate/rhythm, Normal S1 S2 Gastrointestinal: Normal bowel sounds, No tenderness Musculoskeletal: No tenderness Integumentary: No rashes Neurological: Normal speech, Normal tone, Normal affect Lymphatics: No axilla or inguinal lymphadenopathy Laboratory Data at Discharge: WBC 10.1 K/uL (4.3-10.9) 08/10/17 04:12 Hgb 11.2 g/dL (13.6-17.9) L 08/10/17 04:12 Hct 33.2 % (39.6-49.0) L 08/10/17 04:12 Plt Count 165 K/uL (152-406) D 08/10/17 04:12 PT 35.1 SECONDS (9.5-12.5) H 08/06/17 20:50 INR 2.94 08/06/17 20:50 Sodium 141 mmol/L (136-145) 08/10/17 04:12 Potassium 3.6 mmol/L (3.5-5.1) 08/10/17 04:12 BUN 34 mg/dL (7-18) H 08/10/17 04:12 Creatinine 1.30 mg/dL (0.55-1.3) 08/10/17 04:12 Glucose 216 mg/dL (74-106) H 08/10/17 04:12 Uric Acid 4.7 mg/dL (3.5-7.2) D 08/10/17 04:12 Phosphorus 2.6 mg/dL (2.5-4.9) 08/10/17 04:12 Magnesium 2.3 mg/dL (1.8-2.4) 08/10/17 04:12 Total Bilirubin 0.7 mg/dL (0.2-1.0) 08/10/17 04:12 AST 21 U/L (15-37) 08/10/17 04:12 ALT 19 U/L (12-78) 08/10/17 04:12 Alkaline Phosphatase 61 U/L (45-117) 08/10/17 04:12 Lipase 181 U/L (73-393) 08/06/17 20:50 Home Medications: Carvedilol [Coreg] 25 mg PO DAILY 07/22/17 Furosemide [Lasix] 40 mg PO BID 07/22/17 Gabapentin [Gralise] 300 mg PO TID 07/22/17 Metoclopramide HCl [Reglan] 10 mg PO TID 07/22/17 Spironolactone [Aldactone] 50 mg PO DAILY 07/22/17 metroNIDAZOLE [Metronidazole] 500 mg PO BID 07/22/17 Nitrofuran Macro [Macrodantin] 50 mg PO DAILY #30 cap 07/25/17 Allopurinol [Zyloprim*] 100 mg PO DAILY 08/07/17 Apixaban [Eliquis] 5 mg PO BID 08/07/17 Docusate [Colace Cap*] 100 mg PO BID 08/07/17 Insulin Aspart [Novolog Flexpen] See Protocol SQ ACHS 08/07/17 Insulin Detemir [Levemir] 15 units SQ DAILY 08/07/17 Mag Hydroxide 8% [Milk Of Magnesia*] 30 ml PO ONCE PRN 08/07/17 Omeprazole [Prilosec] 40 mg PO DAILY 08/07/17 Ceftriaxone [Rocephin 1 gm/50 ml Ivpb] 1 gm IV DAILY 5 Days bag 08/11/17 Insulin Detemir [Levemir*] 10 units SQ BIDWM 30 Days #30 syr 08/11/17 New Medications: Ceftriaxone [Rocephin 1 gm/50 ml Ivpb] 1 gm IV DAILY 5 Days bag Insulin Detemir [Levemir*] 10 units SQ BIDWM 30 Days #30 syr Diet: ADA Activity: Ad jeri Physician Review: Patient Assessed, Agree with Above Assessment and Plan Time spent managing pt's care (in minutes): 45
[2017-08-11 12:31] LABS: Urine Protein/Creatinine Ratio 1.37 ratio (<0.15)
[2017-08-11 12:40] LABS: Urine Bacteria <20 /HPF (NONE SEEN); Urine Culture Reflex Order NOT NEEDED; Urine RBC <5 /HPF (NONE SEEN)
[2017-08-11] MEDS: CEFTRIAXONE/SWI 1gm 1 GM/10 ML SYR IV SCH (20:25)
--- NOTE | 2017-08-11 20:55 | P.PN ---
Date of Service: 08/11/17 Vital Signs Temp Pulse Resp BP Pulse Ox 98.3 F 70 18 155/74 H 96 08/11/17 16:00 08/11/17 20:31 08/11/17 16:00 08/11/17 20:31 08/11/17 16:00 Medications Acetaminophen (Tylenol -Extra Strength) 500 mg PO Q4HP PRN PRN Reason: [id number] Stop: 09/06/17 00:47 Amlodipine Besylate (Norvasc) 5 mg PO BID DELIO Stop: 09/09/17 22:31 Last Admin: 08/11/17 20:25 Dose: 5 mg Apixaban (Eliquis) 5 mg PO BID DELIO Stop: 09/06/17 09:01 Last Admin: 08/11/17 20:25 Dose: 5 mg Carvedilol (Coreg) 12.5 mg PO BID DELIO Stop: 09/10/17 09:01 Last Admin: 08/11/17 20:31 Dose: 12.5 mg Dextrose (Dextrose 50% Syringe) 12.5 gm IV PRN PRN; Protocol PRN Reason: HYPOGLYCEMIA Stop: 09/07/17 16:28 Docusate Sodium (Colace Cap) 100 mg PO DAILY [facility] Stop: 09/06/17 09:01 Last Admin: 08/11/17 09:52 Dose: 100 mg Glucagon (Glucagen) 1 mg IM 1X PRN; Protocol PRN Reason: HYPOGLYCEMIA Stop: 09/07/17 16:28 Sodium Chloride (Sodium Chloride 0.45%) 1,000 mls @ 100 mls/hr IV .Q10H DELIO Stop: 09/08/17 01:01 Last Admin: 08/11/17 13:00 Dose: Not Given Ceftriaxone Sodium/Sodium Chloride (Rocephin 1 Gm/10 Ml Swi Ivp) 1 gm in 10 mls @ 600 mls/hr IV 2100 [facility] Stop: 09/08/17 21:01 Last Admin: 08/11/17 20:25 Dose: 10 mls Insulin Detemir (Levemir) 10 units SQ BIDWM DELIO Stop: 09/10/17 17:01 Last Admin: 08/11/17 16:51 Dose: 10 units Insulin Human Regular (Novolin -R) 0 unit SQ ACHS [facility]; Protocol Stop: 09/07/17 16:31 Last Admin: 08/11/17 20:32 Dose: 6 unit Ondansetron HCl (Zofran) 4 mg IV Q6HP PRN PRN Reason: NAUSEA / VOMITING Stop: 09/06/17 00:47 Pantoprazole Sodium (Protonix Inj) 40 mg IVP DAILY [facility] Stop: 09/06/17 09:01 Last Admin: 08/11/17 09:56 Dose: 40 mg Sodium Chloride (Normal Saline Flush) 10 ml IV BID DELIO Stop: 09/06/17 09:01 Last Admin: 08/11/17 20:31 Dose: 10 ml Sodium Chloride (Sodium Chloride 10 Ml Inj) 10 ml IV UD PRN PRN Reason: Diluant Stop: 09/06/17 07:37 Microbiology Results 08/06/17 21:30 Catheterized Urine [place] Count - Final >100,000 CFU/ML. 08/06/17 21:30 Catheterized Urine - Final Proteus Mirabilis 08/06/17 21:10 Blood - Blood Aerobic Blood Culture - Final Proteus Mirabilis 08/06/17 21:10 Blood - Blood Gram Stain - Final 08/06/17 21:10 Blood - Blood Anaerobic Blood Culture - Final Proteus Mirabilis 08/06/17 21:10 Blood - Blood Gram Stain - Final 08/06/17 20:50 Blood - Blood Aerobic Blood Culture - Final Proteus Mirabilis 08/06/17 20:50 Blood - Blood Gram Stain - Final 08/06/17 20:50 Blood - Blood Anaerobic Blood Culture - Final Proteus Mirabilis 08/06/17 20:50 Blood - Blood Gram Stain - Final Assessment/ Plan: Nephrology. Doing well. +Appetite CPS stable without CP or SOB. No acute events overnight. Vitals, medications, blood work and imaging reviewed in the chart. General: Alert, Oriented x3, Cooperative HEENT: Atraumatic Neck: Supple Respiratory: Clear to auscultation bilaterally, Normal air movement Cardiovascular: No edema, Regular rate/rhythm Gastrointestinal: Normal bowel sounds, Soft and benign, Distended Musculoskeletal: No clubbing, No contractures, No warmth Integumentary: No rashes, No cyanosis Neurological: Abnormal speech Blood work reviewed in the chart. Serum creatinine 2.10 Imagings Data: EXAM DESCRIPTION: RAD - Chest Single View - 08/07/2017 9:35 am CLINICAL HISTORY: Pneumonia, shortness of breath COMPARISON: August 06 TECHNIQUE: AP portable chest image was obtained 0923 hours . FINDINGS: Patient has underlying fibrotic change accentuated by shallow inspiration. No peripheral consolidation or mass in the right lung field or upper left lung field. Left base is more limited in assessment. Minimal infiltrate cannot be excluded. Heart size is distorted by rotation and shallow inspiration. No cardiomegaly, failure or volume overload suspected. Left-side pacemaker/defibrillator is in place. No measurable pleural effusion and no pneumothorax. No acute bone finding. Bilateral shoulder prosthesis in place along with degenerative change. No acute aortic findings suspected. IMPRESSION: No failure or volume overload suspected. Left base assessment is limited. Minimal left base pneumonia not excluded. Lung martin are otherwise clear of acute disease. Conclusions/Impression: A/ LIZBETH in the setting of sepsis. CKD III. Sepsis. Acute Cystitis. Proteus. DM II with CKD. HTN with CKD. Anemia in chronic illness. Thrombocytopenia. Moderate malnutrition. P/ Continue current POC and Medications. Start ramipril 5mg at bedtime. Titrate insulin as needed. Advance diet as tolerated. No NSAIDs. AM labs. Daily weight.
[2017-08-11] MEDS ORDERED: RAMIPRIL 5 MG CAP PO SCH (21:00)
[2017-08-12 05:07] LABS: Absolute Monocytes 1.2 K/uL (0.1-1.3); Absolute Neutrophil 7.5 K/uL (1.8-8.0); Basophils % 0.7 % (0-1.3); Eosinophils % 1.8 % (0-4.4); Hematocrit 33.5 % (39.6-49.0); Lymphocytes % 10.2 % (15.3-44.8); MCH 30.6 pg (27.0-35.0); MCV 88.8 fL (80-100); MPV 9.1 fL (7.6-11.3); Monocytes % 12.5 % (3.3-12.3); RBC Red Blood Cell Count 3.77 M/uL (4.33-5.43)
[2017-08-12 05:46] LABS: Potassium 3.7 mmol/L (3.5-5.1); Uric Acid 3.9 mg/dL (3.5-7.2)
[2017-08-12 05:50] LABS: Blood Morphology Comment NOTED (NOT SEEN); Burr Cells 2+; Platelet Estimate ADEQ
[2017-08-12] MEDS: INSULIN -REGULAR HUMAN 50 UNIT/0.5 ML ML SQ SCH (07:30)
[2017-08-12 08:54] VITALS: O2SAT 98
[2017-08-12] MEDS ORDERED: POTASSIUM CL SA 10 MEQ TAB PO ONE (09:00)
[2017-08-12] MEDS ORDERED: VITAMIN D 5,000 UNIT CAP PO SCH (09:00)
[2017-08-12] MEDS: INSULIN DETEMIR 100 UNIT/1 ML INSULIN SQ SCH (09:00)
[2017-08-12] MEDS: AMLODIPINE 5 MG TAB PO SCH (09:01)
[2017-08-12] MEDS: DOCUSATE NA 100 MG CAP PO SCH (09:01)
[2017-08-12] MEDS: APIXABAN 5 MG TABLET PO SCH (09:01)
[2017-08-12] MEDS: CARVEDILOL 6.25 MG TAB PO SCH (09:01)
[2017-08-12] MEDS: PANTOPRAZOLE 40 MG INJ IVP SCH (09:02)
--- NOTE | 2017-08-12 10:13 | P.PN ---
Subjective Date of Service: 08/12/17 Chief Complaint: sepsis Patient agreed to [place]. Discharge was delayed yesterday. Will discharge today. Review of Systems 10-point ROS is otherwise unremarkable Physical Examination - Vital Signs Temperature: 97.4 F Blood Pressure: 151/72 Pulse: 70 Respirations: 18 Pulse Ox (%): 98 - Physical Exam General: Alert, In no apparent distress HEENT: Atraumatic, PERRLA, EOMI Neck: Supple, JVD not distended Respiratory: Clear to auscultation bilaterally, Normal air movement Cardiovascular: Regular rate/rhythm, Normal S1 S2 Gastrointestinal: Normal bowel sounds, No tenderness Musculoskeletal: No tenderness Integumentary: No rashes Neurological: Normal speech, Normal tone, Normal affect Lymphatics: No axilla or inguinal lymphadenopathy Assessment & Plan - Problems (Diagnosis) (1) Sepsis Onset Date: 08/07/17 Current Visit: Yes Status: Acute Plan: p. Mirables. Multidrug sensitive. Will switch him to ceftriaxone. Qualifiers: Sepsis type: sepsis due to unspecified organism Qualified Code(s): A41.9 - Sepsis, unspecified organism (2) Acute on chronic kidney failure Onset Date: 08/07/17 Current Visit: Yes Status: Acute Plan: post obstructive failure. Patient is as at his baseline Qualifiers: Acute renal failure type: unspecified Chronic kidney disease stage: stage 4 (severe) Qualified Code(s): N17.9 - Acute kidney failure, unspecified; N18.4 - Chronic kidney disease, stage 4 (severe) (3) CAD (coronary artery disease) Onset Date: 11/22/16 Current Visit: No Status: Chronic Plan: stable at this time. Dr. Goodman lowered his carvediolol. Was appropriate due to his blood pressure. Will keep him on telemetry for know. Qualifiers: Coronary Disease-Associated Artery/Lesion type: [place] artery [place] vs. transplanted heart: [place] heart Associated angina: without angina Qualified Code(s): I25.10 - Atherosclerotic heart disease of [place] coronary artery without angina pectoris (4) Diabetes mellitus Onset Date: 01/16/15 Current Visit: No Status: Chronic Plan: Hold long acting insulin. Will start him on accuchecks q8 hours and a mild sliding scale insulin Qualifiers: Diabetes mellitus type: type 2 Diabetes mellitus exterminator insulin use: with halfway use Diabetes mellitus complication status: with hyperglycemia Qualified Code(s): E11.65 - Type 2 diabetes mellitus with hyperglycemia; Z79.4 - skilled nursing (current) use of insulin (5) Hyperlipidemia Onset Date: 01/16/15 Current Visit: No Status: Chronic Qualifiers: Hyperlipidemia type: mixed hyperlipidemia Qualified Code(s): E78.2 - Mixed hyperlipidemia (6) Hypertension Onset Date: 01/16/15 Current Visit: No Status: Chronic Plan: lowered bp. As stated above his coreg has been lowered. Qualifiers: Hypertension type: essential hypertension Qualified Code(s): I10 - Essential (primary) hypertension Discharge Plan: [facility] Plan to discharge in: 24 Hours - Code Status/Comfort Care Code Status Assessed: No Code Status: Full Code Physician Review: Patient Assessed, Agree with Above Assessment and Plan Critical Care: No Time Spent Managing Pts Care (In Minutes): 25
[2017-08-12 15:22] VITALS: BP 145/59; TEMP 97.5
--- NOTE | 2017-08-12 19:40 | P.PN ---
Date of Service: 08/12/17 Vital Signs Temp Pulse Resp BP Pulse Ox 97.5 F 69 18 145/59 H 96 08/12/17 12:00 08/12/17 12:00 08/12/17 12:00 08/12/17 12:00 08/12/17 12:00 Microbiology Results 08/06/17 21:30 Catheterized Urine [place] Count - Final >100,000 CFU/ML. 08/06/17 21:30 Catheterized Urine - Final Proteus Mirabilis 08/06/17 21:10 Blood - Blood Aerobic Blood Culture - Final Proteus Mirabilis 08/06/17 21:10 Blood - Blood Gram Stain - Final 08/06/17 21:10 Blood - Blood Anaerobic Blood Culture - Final Proteus Mirabilis 08/06/17 21:10 Blood - Blood Gram Stain - Final 08/06/17 20:50 Blood - Blood Aerobic Blood Culture - Final Proteus Mirabilis 08/06/17 20:50 Blood - Blood Gram Stain - Final 08/06/17 20:50 Blood - Blood Anaerobic Blood Culture - Final Proteus Mirabilis 08/06/17 20:50 Blood - Blood Gram Stain - Final Assessment/ Plan: Nephrology. Doing well. +Appetite CPS stable without CP or SOB. No acute events overnight. Vitals, medications, blood work and imaging reviewed in the chart. General: Alert, Oriented x3, Cooperative HEENT: Atraumatic Neck: Supple Respiratory: Clear to auscultation bilaterally, Normal air movement Cardiovascular: No edema, Regular rate/rhythm Gastrointestinal: Normal bowel sounds, Soft and benign, Distended Musculoskeletal: No clubbing, No contractures, No warmth Integumentary: No rashes, No cyanosis Neurological: Abnormal speech Blood work reviewed in the chart. Serum creatinine 2.10 Imagings Data: EXAM DESCRIPTION: RAD - Chest Single View - 08/07/2017 9:35 am CLINICAL HISTORY: Pneumonia, shortness of breath COMPARISON: August 06 TECHNIQUE: AP portable chest image was obtained 0923 hours . FINDINGS: Patient has underlying fibrotic change accentuated by shallow inspiration. No peripheral consolidation or mass in the right lung field or upper left lung field. Left base is more limited in assessment. Minimal infiltrate cannot be excluded. Heart size is distorted by rotation and shallow inspiration. No cardiomegaly, failure or volume overload suspected. Left-side pacemaker/defibrillator is in place. No measurable pleural effusion and no pneumothorax. No acute bone finding. Bilateral shoulder prosthesis in place along with degenerative change. No acute aortic findings suspected. IMPRESSION: No failure or volume overload suspected. Left base assessment is limited. Minimal left base pneumonia not excluded. Lung martin are otherwise clear of acute disease. Conclusions/Impression: A/ LIZBETH in the setting of sepsis. CKD III. Sepsis. Acute Cystitis. Proteus. DM II with CKD. HTN with CKD. Anemia in chronic illness. Thrombocytopenia. Moderate malnutrition. P/ Continue current POC and Medications. Titrate insulin as needed. Advance diet as tolerated. No NSAIDs. AM labs. Daily weight.
== END 2017-08-12 11:48 | DRG 698 ==
LOC: ER 20:32 → 2ND 22:32
PROVIDERS: ADMIT Internal Medicine; ATTEND Internal Medicine
PROC: 02HV33Z Insertion of Infusion Device into Superior Vena Cava, Percutaneous Approach (ICD-10-PCS; principal; 2017-08-08)
DX: T83.511A Infection and inflammatory reaction due to indwelling urethral catheter, initial encounter (principal); A41.89 Other specified sepsis; N30.00 Acute cystitis without hematuria; N17.9 Acute kidney failure, unspecified; N18.4 Chronic kidney disease, stage 4 (severe); E44.0 Moderate protein-calorie malnutrition; Y84.6 Urinary catheterization as the cause of abnormal reaction of the patient, or of later complication, without mention of misadventure at the time of the procedure; Y92.129 Unspecified place in nursing home as the place of occurrence of the external cause; E11.22 Type 2 diabetes mellitus with diabetic chronic kidney disease; I12.9 Hypertensive chronic kidney disease with stage 1 through stage 4 chronic kidney disease, or unspecified chronic kidney disease; I25.10 Atherosclerotic heart disease of native coronary artery without angina pectoris; E11.65 Type 2 diabetes mellitus with hyperglycemia; E78.5 Hyperlipidemia, unspecified; Z79.01 Long term (current) use of anticoagulants; Z79.4 Long term (current) use of insulin; B96.4 Proteus (mirabilis) (morganii) as the cause of diseases classified elsewhere; D63.8 Anemia in other chronic diseases classified elsewhere; D69.6 Thrombocytopenia, unspecified; G89.4 Chronic pain syndrome; Z95.0 Presence of cardiac pacemaker; N13.9 Obstructive and reflux uropathy, unspecified; Z88.5 Allergy status to narcotic agent; Z88.0 Allergy status to penicillin; E11.40 Type 2 diabetes mellitus with diabetic neuropathy, unspecified; M10.9 Gout, unspecified; M19.90 Unspecified osteoarthritis, unspecified site; Z95.5 Presence of coronary angioplasty implant and graft; Z87.891 Personal history of nicotine dependence; Z68.28 Body mass index [BMI] 28.0-28.9, adult
CPT/HCPCS: 36415; 71045; 74230; 80048; 80053; 80076; 81001; 81003; 81015; 82550; 82570; 82805; 82962; 83605; 83690; 83735; 84100; 84145; 84156; 84300; 84484; 84550; 85025; 85610; 87040; 87077; 87086; 87088; 87186; 87205; 93005; 94660; 94760; 96365; 96366; 96375; 99291; C9113; J0692; J0696; J2310; J7030

== ENCOUNTER 2017-09-07 17:11 | Inpatient (IN) | payer OTHER ==
--- OUTSIDE RECORDS SUMMARY | 2017-09-07 17:13 | XMS REPORT | Clinical Summary ---
:1940 Author Organization [facility] Address [address] [place] [address] Care Team Providers Name Role Phone Asked, [...] INFLUENZA VACCINE 09/10/2017 Results Not on fileafter 09/06/2016 Insurance Payer Benefit Plan / Group Subscriber ID Type Phone Address STATE FARM INS STATE [employer]ARM INS xxxxxxxxxxxx Commercial MEDICARE MEDICARE PART A AND B xxxxxxxxxx Medicare [place], [place] Home: [phone] [place], [place] [phone]
[2017-09-07 17:53] LABS: Absolute Lymphocytes (CBC) 1.4 K/uL (0.7-4.9); Basophils % 0.9 % (0-1.3); Eosinophils % 1.9 % (0-4.4); Hematocrit 36.9 % (39.6-49.0); Lymphocytes % 14.3 % (15.3-44.8); MCH 30.9 pg (27.0-35.0); MCV 93.2 fL (80-100); MPV 8.6 fL (7.6-11.3); Monocytes % 10.4 % (3.3-12.3); RBC Red Blood Cell Count 3.97 M/uL (4.33-5.43)
[2017-09-07 18:13] LABS: Albumin 2.8 g/dL (3.4-5.0); Bilirubin Direct 0.3 mg/dL (0-0.2); Bilirubin Total 0.6 mg/dL (0.2-1.0); Potassium 3.4 mmol/L (3.5-5.1); Protein, Total 8.1 g/dL (6.4-8.2)
--- NOTE | 2017-09-07 18:51 | RAD REPORT ---
EXAM DESCRIPTION: CT - Abdomen Pelvis Wo Contrast - 09/07/2017 6:39 pm CLINICAL HISTORY: Abdominal pain, rectal bleeding COMPARISON: None. TECHNIQUE: Axial [address] imaging of the abdomen and pelvis was performed without IV contrast. No IV contrast was given because of allergy, abnormal renal function, patient refusal or physician re quest. Oral contrast was given. All CT scans are performed using dose optimization technique as appropriate and may include automated exposure control or mA/KV adjustment according to patient size. FINDINGS: Patchy airspace infiltrate medial left lung base. No pleural effusion. No pericardial thic kening or effusion. There is a minimal hiatal hernia present. The liver, spleen and pancreas show no suspicious findings on non-contrast imaging. Well filled gallb ladder shows no acute finding. There is a least 1 punctate gallstone near the neck. No biliary tree d ilatation. No hydronephrosis or suspicious renal mass. No obstructing or nonobstructing calculi. Small renal cys ts are seen. No significant adrenal finding. Isodense renal masses and pyelonephritis cannot be exclu ded in the absence of IV contrast. Urinary bladder is contracted around a Ramirez catheter. Placement o f the catheter would likely account for the small amount of air within the bladder lumen. No gastric dilatation or gastric wall thickening. No acute small bowel finding. Dense contrast in the colon. This is presumed to be administered for this examination though the contrast may be from a pr ior diagnostic study. Rectum is dilated. Colon nascimento at the anus are prominent. CT imaging has limite d ability to accurately assess this portion of the colon. No perirectal stranding or lymphadenopathy. No free air, free fluid or focal inflammatory stranding. No hernia, mass or bulky lymphadenopathy. Disc and bony degenerative changes are present. No acute or pathologic bone process seen. IMPRESSION: Suspected minimal pneumonia posterior left lung base. No obstruction, free air or surgically emergent finding. Soft tissues of the colon at the anus are prominent. No clearly defined mass. CT imaging of this gama on is limited. Elsewhere no acute GI abnormality identified to explain GI bleed exam findings. No hydronephrosis or acute finding. Bladder is contracted around a Ramirez. Full assessment is limited is the absence of IV contrast.
--- NOTE | 2017-09-07 19:01 | EDPHYS ---
Physician Documentation [facility] Name: Laureano Valenzuela Age: 76 yrs Sex: Male : 1940 Arrival Date: 09/07/2017 Time: 17:11 Bed 4 Private MD: ED Physician Houston Finn HPI: 09/07 17:26 This 76 yrs old Male presents to ER via EMS with complaints of Rectal kdr Bleeding. 17:26 The patient presents to the emergency department with bleeding from the rectum/anus, kdr that is moderate. Onset: The symptoms/episode began/occurred just prior to arrival. Context: the [facility] for bleeding rectally with colts. Modifying factors: The symptoms are alleviated by nothing, The symptoms are aggravated by nothing. It is unknown whether or not the patient has had similar symptoms in the past. It is unknown whether or not the patient has recently seen a physician. Historical: - Allergies: 17:16 Codeine; ss 17:16 HYDROCODONE; ss 17:16 Morphine; ss 17:16 PENICILLINS; ss - Home Meds: 19:19 allopurinol 300 mg Oral tab 1 tab once daily [Active]; Cefuroxime Oral 500 mg twice a ph day [Active]; Coreg 25 mg Oral tab 1 tab 2 times per day [Active]; dilaudid pump [Active]; furosemide 40 mg Oral tab 1 tab once daily [Active]; Insulin: Novolin 70/30 Sub-Q 20 units in am and 45 units at night [Active]; lisinopril 10 mg Oral tab 1 tab once daily [Active]; metoclopramide HCl 10 mg Oral tab 1 tab three times a day [Active]; pantoprazole 40 mg Oral TbEC 1 tab once daily [Active]; simvastatin 10 mg Oral tab 1 tab nightly [Active]; warfarin 3.5 mg Oral once daily [Active]; - PMHx: 17:16 Back pain; CHF; Chronic pain; COPD; Diabetes - IDDM; High Cholesterol; Hypertension; ss Gout; Myocardial infarction; - Immunization history:: Adult Immunizations unknown. - Social history:: Smoking status: Patient/guardian denies using tobacco. - Ebola Screening: : Patient denies exposure to infectious person Patient denies travel to an Ebola-affected area in the 21 days before illness onset. ROS: 17:26 Constitutional: Negative for fever, chills, and weight loss, Eyes: Negative for injury, kdr pain, redness, and discharge, ENT: Negative for injury, pain, and discharge, Neck: Negative for injury, pain, and swelling, Cardiovascular: Negative for chest pain, palpitations, and edema, Respiratory: Negative for shortness of breath, cough, wheezing, and pleuritic chest pain, Back: Negative for injury and pain, : Negative for injury, bleeding, discharge, and swelling, MS/Extremity: Negative for injury and deformity, Skin: Negative for injury, rash, and discoloration - he does have chronic decubitus 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 Psych: Negative for depression, anxiety, suicide ideation, homicidal ideation, and hallucinations, Allergy/Immunology: Negative for hives, rash, and allergies, Endocrine: Negative for neck swelling, polydipsia, polyuria, polyphagia, and marked weight changes, Hematologic/Lymphatic: Negative for swollen nodes, abnormal bleeding, and unusual bruising. 17:26 Abdomen/GI: Positive for rectal bleeding. Exam: 17:26 Constitutional: This is a well developed, well nourished patient who is awake, alert, kdr and in no acute distress. Head/Face: Normocephalic, atraumatic. Eyes: Pupils equal round and reactive to light, extra-ocular motions intact. Lids and lashes normal. Conjunctiva and sclera are non-icteric and not injected. Cornea within normal limits. Periorbital areas with no swelling, redness, or edema. Neck: Trachea midline, no thyromegaly or masses palpated, and no cervical lymphadenopathy. Supple, full range of motion without nuchal rigidity, or vertebral point tenderness. No Meningismus. Chest/axilla: Normal chest wall appearance and motion. Nontender with no deformity. No lesions are appreciated. Cardiovascular: Regular rate and rhythm with a normal S1 and S2. No gallops, murmurs, or rubs. Normal PMI, no JVD. No pulse deficits. Respiratory: Lungs have equal breath sounds bilaterally, clear to auscultation and percussion. No rales, rhonchi or wheezes noted. No increased work of breathing, no retractions or nasal flaring. Back: No spinal tenderness. No costovertebral tenderness. Full range of motion. Skin: Warm, dry with normal turgor. Normal color with no rashes, no lesions, and no evidence of cellulitis. There is the chronic wound to the sacrum MS/ Extremity: Pulses equal, no cyanosis. Neurovascular intact. Full, normal range of motion. Neuro: Awake and alert, GCS 15, oriented to person, place, time, and situation. Cranial nerves II-XII grossly intact. Motor strength 5/5 in all extremities. Sensory grossly intact. Cerebellar exam normal. Normal gait. Psych: Awake, alert, with orientation to person, place and time. Behavior, mood, and affect are within normal limits. 17:26 Abdomen/GI: Inspection: obese Bowel sounds: active, diminished, in all quadrants, Palpation: soft, nontender, Rectal exam: rectal tone normal, Stool: guaiac positive, black. Vital Signs: 17:16 BP 134 / 70; Pulse 73; Resp 17; Pulse Ox 96% on R/A; Weight 99.79 kg; Height 5 ft. 9 ss in. (175.26 cm); Pain 0/10; 18:00 BP 138 / 64; Pulse 87; Resp 18; Pulse Ox 99% on R/A; ph 19:15 BP 122 / 64; Pulse 91; Resp 18; Pulse Ox 98% on R/A; Pain 0/10; ph 20:48 BP 107 / 57; Pulse 89; Resp 16; Pulse Ox 96% on R/A; Pain 0/10; ao 17:16 Body Mass Index 32.49 (99.79 kg, 175.26 cm) ss MDM: 17:26 Data reviewed: vital signs, nurses notes, lab test result(s), radiologic studies. kdr Counseling: I had a detailed discussion with the patient and/or guardian regarding: the historical points, exam findings, and any diagnostic results supporting the discharge/admit diagnosis, lab results, radiology results. 19:00 Patient medically screened. kdr 09/07 17:15 Order name: Basic Metabolic Panel; Complete Time: 18:29 kdr 09/07 17:15 Order name: CBC with Diff; Complete Time: 18:11 kdr 09/07 17:15 Order name: Creatinine for Radiology; Complete Time: 18:11 kdr 09/07 17:15 Order name: Hepatic Function; Complete Time: 18:29 kdr 09/07 17:15 Order name: Lipase; Complete Time: 18:29 [facility] 09/07 17:15 Order name: Urine Microscopic Only [facility] 09/07 17:15 Order name: IV Saline Lock; Complete Time: 17:46 [facility] 09/07 17:17 Order name: Type And Screen; Complete Time: 18:57 09/07 17:24 Order name: Occult Blood 09/07 18:26 Order name: Abdomen ; Complete Time: 18:57 [facility] 09/07 19:17 Order name: Urine Dipstick--Ancillary (enter results) mi 09/07 20:08 Order name: Urine Dipstick-Ancillary [facility] 09/07 20:31 Order name: Protime (+INR) [facility] 09/07 17:15 Order name: Labs collected and sent; Complete Time: 17:46 [facility] 09/07 17:15 Order name: Urine Dipstick-Ancillary (obtain specimen); Complete Time: 19:27 kdr Administered Medications: No medications were administered Disposition: 09/07/17 19:00 Hospitalization ordered by Tom Rao for Inpatient Admission. Preliminary diagnosis is GI Bleeding, pneumonia. - Bed requested for Telemetry/MedSurg (Inpatient). - Status is Inpatient Admission. ao - Condition is Fair. - Problem is new. - Symptoms are unchanged. UTI on Admission? No Signatures: Dispatcher [facility] Giulia Pang, Houston Ochoa RN, MD MD [facility] Keerthi Saucedo RN RN ss Hall, Patricia, RN RN Alex Patel RN RN ao Corrections: (The following items were deleted from the chart) 18:26 17:24 Abdomen Pelvis W Con+CT.RAD.BRZ ordered. [facility] 20:24 19:00 Hospitalization Ordered by Tom Rao MD for Inpatient Admission. Preliminary diagnosis is GI Bleeding, pneumonia. Bed requested for Telemetry/MedSurg (Inpatient). Status is Inpatient Admission. Condition is Fair. Problem is new. Symptoms are unchanged. UTI on Admission? No. kdr 21:11 20:24 09/07/2017 19:00 Hospitalization Ordered by Tom Rao MD for Inpatient ao Admission. Preliminary diagnosis is GI Bleeding, pneumonia. Bed requested for Telemetry/MedSurg (Inpatient). Status is Inpatient Admission. Condition is Fair. Problem is new. Symptoms are unchanged. UTI on Admission? No. kl
--- NOTE | 2017-09-07 19:01 | ER ---
Nurse's Notes [facility] Name: Laureano Valenzuela Age: 76 yrs Sex: Male : 1940 Arrival Date: 09/07/2017 Time: 17:11 Bed 4 Private MD: Diagnosis: GI Bleeding, pneumonia Presentation: 09/07 17:11 Presenting complaint: EMS states: [facility] noticed small amount of bright red ss rectal bleeding that began a few hours ago. After rechecking patient's brief it was discovered that there was a larger amount of blood noted to be in his brief. residential staff members contacted Dr. Choudhury who ordered to have patient be evaluated in ER. Pt denies pain, other than the heel of his foot. Transition of care: patient was received from another setting of care ([facility]. Onset of symptoms was September 07, 2017. Risk Assessment: Do you want to hurt yourself or someone else? Patient reports no desire to harm self or others. Initial Sepsis Screen: Does the patient have a suspected source of infection? Yes: Other: indwelling catheter and sacral decub. noted No. Patient's initial sepsis screen is negative. Initial Sepsis Screen: Does the patient meet any 2 criteria? No. Patient's initial sepsis screen is negative. Care prior to arrival: Glucose check: 234. 17:11 Method Of Arrival: EMS: [facility] 17:11 Acuity: [place] 3 ss Historical: - Allergies: 17:16 Codeine; ss 17:16 HYDROCODONE; ss 17:16 Morphine; ss 17:16 PENICILLINS; ss - Home Meds: 19:19 allopurinol 300 mg Oral tab 1 tab once daily [Active]; Cefuroxime Oral 500 mg twice a ph day [Active]; Coreg 25 mg Oral tab 1 tab 2 times per day [Active]; dilaudid pump [Active]; furosemide 40 mg Oral tab 1 tab once daily [Active]; Insulin: Novolin 70/30 Sub-Q 20 units in am and 45 units at night [Active]; lisinopril 10 mg Oral tab 1 tab once daily [Active]; metoclopramide HCl 10 mg Oral tab 1 tab three times a day [Active]; pantoprazole 40 mg Oral TbEC 1 tab once daily [Active]; simvastatin 10 mg Oral tab 1 tab nightly [Active]; warfarin 3.5 mg Oral once daily [Active]; - PMHx: 17:16 Back pain; CHF; Chronic pain; COPD; Diabetes - IDDM; High Cholesterol; Hypertension; ss Gout; Myocardial infarction; - Immunization history:: Adult Immunizations unknown. - Social history:: Smoking status: Patient/guardian denies using tobacco. - Ebola Screening: : Patient denies exposure to infectious person Patient denies travel to an Ebola-affected area in the 21 days before illness onset. Screenin:49 Abuse screen: Denies threats or abuse. Denies injuries from another. Nutritional ph screening: No deficits noted. Tuberculosis screening: No symptoms or risk factors identified. Fall Risk No fall in past 12 months (0 pts). Secondary diagnosis (15 points) impaired mobility, IV access (20 points). Ambulatory Aid- None/Bed Rest/Nurse Assist (0 pts). Gait- Impaired (20 pts.). Mental Status- Oriented to own ability (0 pts). Total Rey Fall Scale indicates High Risk Score (45 or more points). Fall prevention measures have been instituted. Side Rails Up X 2 Placed Close to Nursing Station Frequent Obs/Assessments Occuring As available patient and family educated on Fall Prevention Program and Strategies. Assessment: 17:35 Reassessment: Dr Finn at bedside for rectal exam, guaiac results positive. ph 17:47 General: Appears in no apparent distress. comfortable, Behavior is calm, cooperative, ph appropriate for age, Denies fever, feeling ill. Pain: Denies pain. Neuro: Level of Consciousness is awake, alert, obeys commands, Oriented to person, place, time, situation. Cardiovascular: Denies chest pain, lightheadedness, nausea, shortness of breath, vomiting, Capillary refill < 3 seconds in bilateral fingers Patient's skin is warm and dry. Respiratory: Airway is patent Respiratory effort is even, unlabored, Respiratory pattern is regular, symmetrical. GI: Abdomen is round non-distended, Bowel sounds present X 4 quads. Abd is soft and non tender X 4 quads. Reports rectal bleeding, Patient currently denies abdominal pain, diarrhea, nausea, vomiting. Derm: Skin is fragile, is thin, Skin is pink, warm \T\ dry. Musculoskeletal: Circulation, motion, and sensation intact. Range of motion: limited in lower extremities. 18:06 Reassessment: pt repositioned to L side with total assistance. ss 18:52 Reassessment: Patient appears in no apparent distress at this time. Patient and/or ph family updated on plan of care and expected duration. Pain level reassessed. Patient is alert, oriented x 3, equal unlabored respirations, skin warm/dry/pink. Pt returned from CT, daughter at bedside, awaiting CT and lab results. 19:10 Reassessment: Patient appears in no apparent distress at this time. Patient and/or ph family updated on plan of care and expected duration. Pain level reassessed. Patient is alert, oriented x 3, equal unlabored respirations, skin warm/dry/pink. Pt's brief changed, small amount of bright red blood and stool noted, pt repositioned to side w/ full assist Patient denies pain at this time. 19:20 General: Appears in no apparent distress. comfortable, Behavior is calm, cooperative. ph Pain: Denies pain. Neuro: Level of Consciousness is awake, alert, obeys commands, Oriented to person, place, time, situation, Weakness Speech is normal. Cardiovascular: Denies chest pain, lightheadedness, nausea, shortness of breath, vomiting, Capillary refill < 3 seconds in bilateral fingers Patient's skin is warm and dry. Respiratory: Airway is patent Respiratory effort is even, unlabored, Respiratory pattern is regular, symmetrical. GI: Abdomen is round distended, Bowel sounds present X 4 quads. Abd is soft and non tender X 4 quads. Reports rectal bleeding, Patient currently denies abdominal pain, diarrhea, nausea, vomiting. : No signs and/or symptoms were reported regarding the genitourinary system. EENT: No signs and/or symptoms were reported regarding the EENT system. Derm: Skin is fragile, is thin, Skin is pink, warm \T\ dry. Musculoskeletal: Circulation, motion, and sensation intact. Range of motion:. 19:59 Reassessment: Patient to be admitted. Patient and daughter agree with the POC. ph 20:49 Reassessment: Patient appears in no apparent distress at this time. Patient and/or ao family updated on plan of care and expected duration. Pain level reassessed. Waiting on Nurse to called back for report. Vital Signs: 17:16 BP 134 / 70; Pulse 73; Resp 17; Pulse Ox 96% on R/A; Weight 99.79 kg; Height 5 ft. 9 ss in. (175.26 cm); Pain 0/10; 18:00 BP 138 / 64; Pulse 87; Resp 18; Pulse Ox 99% on R/A; ph 19:15 BP 122 / 64; Pulse 91; Resp 18; Pulse Ox 98% on R/A; Pain 0/10; ph 20:48 BP 107 / 57; Pulse 89; Resp 16; Pulse Ox 96% on R/A; Pain 0/10; ao 17:16 Body Mass Index 32.49 (99.79 kg, 175.26 cm) ED Course: 17:11 Patient arrived in ED. ss 17:12 Houston Finn MD is Attending Physician. kdr 17:15 Triage completed. ss 17:16 Arm band placed on right wrist. ss 17:46 Rachel Posey, RN is Primary Nurse. ph 17:46 Inserted saline lock: 22 gauge in left upper arm, using aseptic technique. ph 17:50 Patient has correct armband on for positive identification. Placed in gown. Bed in low ph position. Call light in reach. Side rails up X2. teletypesetter monitor on. Pulse ox on. NIBP on. Warm blanket given. 18:38 Abdomen In Process Unspecified. EDMS 18:39 CT completed. Patient tolerated procedure well. Patient moved back from CT. bq 19:00 Tom Rao MD is Hospitalizing Provider. kdr 21:00 No provider procedures requiring assistance completed. Patient admitted, IV remains in ao place. Administered Medications: No medications were administered Outcome: 19:00 Decision to Hospitalize by Provider. kdr 21:00 Admitted to Tele accompanied by juan, Report called to FENG Savage ao 21:00 Condition: stable 21:00 Instructed on the need for admit. ao 21:11 Patient left the ED. ao Signatures: Dispatcher [employer] EDMS Houston Finn MD MD kdr Quilty, Betty bq Smirch, Shelby, RN RN Rachel Posey RN RN ph Alex Patel RN RN ao
[2017-09-07 19:48] LABS: Urine Bacteria <20 /HPF (NONE SEEN); Urine RBC <5 /HPF (NONE SEEN)
[2017-09-07 19:49] LABS: Urine Culture Reflex Order NOT NEEDED
[2017-09-07 20:08] LABS: Urine Blood NEGATIVE (NEG); Urine Glucose NEGATIVE (NEG); Urine Protein NEGATIVE (NEG)
[2017-09-07 20:27] LABS: Protime INR 2.29
[2017-09-07] MEDS ORDERED: PANTOPRAZOLE INJ 80 MG in NA CHLORIDE 0.9% 250 ML IV SCH (21:40)
[2017-09-07] MEDS ORDERED: GLUCAGON 1 MG/VIAL IM PRN (21:40)
[2017-09-07] MEDS ORDERED: ONDANSETRON 4 MG/2 ML VIAL IV PRN (21:40)
[2017-09-07] MEDS ORDERED: D50W 25 GM/50 ML SYRINGE IV PRN (21:40)
[2017-09-07 22:15] VITALS: BMI 28.8
[2017-09-07 22:56] LABS: Hematocrit 35.6 % (39.6-49.0)
[2017-09-07] MEDS: NA CHLORIDE 0.9% 1,000 ML IV SCH (23:00)
[2017-09-07] MEDS ORDERED: NA CHLORIDE 0.9% 250 ML ONE (23:44)
[2017-09-07] MEDS ORDERED: PANTOPRAZOLE 40 MG INJ ONE (23:47)
[2017-09-08 05:25] LABS: Absolute Lymphocytes (CBC) 1.8 K/uL (0.7-4.9); Absolute Neutrophil 6.5 K/uL (1.8-8.0); Basophils % 0.6 % (0-1.3); Eosinophils % 3.2 % (0-4.4); Hematocrit 33.8 % (39.6-49.0); Lymphocytes % 18.2 % (15.3-44.8); MCH 31.4 pg (27.0-35.0); MCV 92.2 fL (80-100); MPV 8.8 fL (7.6-11.3); Monocytes % 10.6 % (3.3-12.3); RBC Red Blood Cell Count 3.67 M/uL (4.33-5.43)
[2017-09-08 05:42] LABS: Potassium 3.1 mmol/L (3.5-5.1)
[2017-09-08] MEDS: INSULIN -REGULAR HUMAN 50 UNIT/0.5 ML ML SQ SCH ×4 (06:00→20:34)
[2017-09-08] MEDS: PANTOPRAZOLE INJ 80 MG in NA CHLORIDE 0.9% 250 ML IV SCH ×2 (09:18→20:31)
[2017-09-08] MEDS: KCL 20 MEQ/100 mL IVPB 20 MEQ/100 ML BAG IV SCH ×2 (09:18→11:58)
[2017-09-08] MEDS: NA CHLORIDE 0.9% 1,000 ML IV SCH ×3 (09:19→23:54)
[2017-09-08] MEDS: METOCLOPRAMIDE 10 MG/2mL INJ IV SCH ×4 (11:00→18:56)
[2017-09-08] MEDS ORDERED: INSULIN -REGULAR HUMAN 50 UNIT/0.5 ML ML SQ SCH (11:30)
--- NOTE | 2017-09-08 11:46 | P.HP ---
Certification for Inpatient Patient admitted to: Inpatient With expected LOS: >2 Midnights Patient will require the following post-hospital care: [facility] Practitioner: I am a practitioner with admitting privileges, knowledge of patient current condition, hospital course, and medical plan of care. Services: Services provided to patient in accordance with Admission requirements found in Title 42 Section 412.3 of the Code of Federal Regulations Patient History Date of Service: 09/08/17 Primary Care Provider: Kei Reason for admission: Upper GI bleed History of Present Illness: Patient is a resident of [facility]. I was called when he had several bowel movements with blood in his stools. The patient described no abdominal pain, or pain when passing the stool. He has no complaints of light headness, dizziness or shortness of breath. He has [facility] in the [place] [facility] with a negron cather for obstructive uropathy. Allergies codeine [Codeine] Allergy (Mild, Verified 07/21/17 21:57) Itching/Hives/Rash hydrocodone [Hydrocodone] Allergy (Mild, Verified 08/07/17 02:25) Itching/Hives/Rash morphine Allergy (Mild, Verified 08/07/17 02:25) Itching/Hives/Rash oxycodone [Oxycodone] Allergy (Mild, Verified 08/07/17 02:25) Itching/Hives/Rash Penicillins Allergy (Mild, Verified 08/07/17 02:25) Itching/Hives/Rash Hydrocodone Allergy (Uncoded 07/21/17 21:57) Unknown Hydrocodone-Alexi Allergy (Uncoded 11/22/16 02:06) Unknown Home Medications: Carvedilol [Coreg] 25 mg PO DAILY 07/22/17 Furosemide [Lasix] 40 mg PO BID 07/22/17 Gabapentin [Gralise] 300 mg PO TID 07/22/17 Metoclopramide HCl [Reglan] 10 mg PO Q4H PRN 07/22/17 Spironolactone [Aldactone] 50 mg PO DAILY 07/22/17 Apixaban [Eliquis] 5 mg PO BID 08/07/17 Insulin Aspart [Novolog Flexpen] See Protocol SQ ACHS 08/07/17 Mag Hydroxide 8% [Milk Of Magnesia*] 30 ml PO DAILY 08/07/17 Omeprazole [Prilosec] 40 mg PO DAILY 08/07/17 RX: Allopurinol [Zyloprim*] 100 mg PO DAILY 08/07/17 RX: Docusate [Colace Cap*] 100 mg PO BID 08/07/17 Acetaminophen [Tylenol -Tablet] 650 mg PO TID 09/08/17 Acetic Acid 0.25% [Acetic Acid 0.25%*] 1 amee TOP DAILY 09/08/17 Arginine/Ascorbate Sod/Juan Jose AC [Arginaid Powder] 1 packet PO BID 09/08/17 Ascorbic Acid [Vitamin C] 500 mg PO BID 09/08/17 Ciprofloxacin HCl [Cipro 250 MG Tablet*] 500 mg PO BID 09/08/17 Collagenase [Santyl Ointment*] 1 amee TOP DAILY 09/08/17 Metformin HCl [Glucophage] 500 mg PO DAILY WITH BREAKFAST 09/08/17 Multivitamin [Multiple Vitamins] 1 each PO DAILY 09/08/17 RX: Insulin Detemir [Levemir*] 12 units SQ BIDWM 09/08/17 RX: LIDOCAINE 5% Ointment [Lidocaine HCl*] 1 amee TOP Q8H 09/08/17 Zinc Sulfate [Zinc Sulfate*] 220 mg PO BID 09/08/17 - Past Medical/Surgical History Has patient received pneumonia vaccine in the past: Yes Diabetic: Yes -: CAD -: HTN -: DM -: Chronic pain -: Hyperlipidemia -: DM Neuropathy -: Gout -: Osteoarthritis -: pacemaker -: sx for pain pump insertion -: shoulder replacement BL -: L Knee replacement -: appendectemy -: CARDIAC STENTS -: PACEMAKER Psychosocial/ Personal History: , 3 children, Retired - Family History Father -: Lung disease, Cancer Mother -: Heart disease, Hypertension, Kidney disease Sister -: Heart disease - Social History Smoking Status: Unknown if ever smoked Alcohol use: No CD- Drugs: No Caffeine use: No Place of [facility]idence: [facility] Review of Systems 10-point ROS is otherwise unremarkable Gastrointestinal: Diarrhea, Melena Physical Examination - Vital Signs Temperature: 97.2 F Blood Pressure: 140/69 Pulse: 88 Respirations: 20 Pulse Ox (%): 97 - Physical Exam General: Alert, In no apparent distress HEENT: Atraumatic, PERRLA, Mucous membr. moist/pink, EOMI, Sclerae nonicteric Neck: Supple, 2+ carotid pulse no bruit, No LAD, Without JVD or thyroid abnormality Respiratory: Clear to auscultation bilaterally, Normal air movement Cardiovascular: Regular rate/rhythm, Normal S1 S2 Gastrointestinal: Normal bowel sounds, No tenderness Musculoskeletal: No tenderness Integumentary: No rashes Neurological: Normal gait, Normal speech, Normal strength at 5/5 x4 extr, Normal tone, Normal affect Lymphatics: No axilla or inguinal lymphadenopathy - Studies Laboratory Data (last 24 hrs) 09/07/17 17:40: Creatinine 1.80 H 09/07/17 17:40: WBC 9.6, Hgb 12.3 L, Hct 36.9 L, Plt Count 244 09/07/17 17:40: Sodium 140, Potassium 3.4 L, BUN 61 H, Creatinine 1.80 H, Glucose 200 H, Total Bilirubin 0.6, AST 31, ALT 35, Alkaline Phosphatase 82, Lipase 172 Assessment and Plan - Problems (Diagnosis) (1) GIB (gastrointestinal bleeding) Current Visit: Yes Status: Acute Plan: guiac positive stools in the ER. Will continue monitoring his hct. Consult to Dr. Squires. Will transfuse if necessary. Qualifiers: GI bleed type/associated pathology: unspecified gastrointestinal hemorrhage type Qualified Code(s): K92.2 - Gastrointestinal hemorrhage, unspecified (2) Chronic renal disease Current Visit: No Status: Acute Plan: Patient is at his baseline. will monitor and give fluids as necessary. Qualifiers: Chronic kidney disease stage: stage 2 (mild) Qualified Code(s): N18.2 - Chronic kidney disease, stage 2 (mild) (3) CHF (congestive heart failure) Current Visit: No Status: Chronic Plan: He had a systolic ER of 23% in . Will order a echocardiogram as he has not had a recent one in the last 6months. He is currently stable. The patient does not need diursesis. However if he requires a transfusion. Should give lasix to prevent vol overload Qualifiers: Heart failure type: systolic (4) Diabetes mellitus Onset Date: 01/16/15 Current Visit: No Status: Chronic Plan: Will hold his regular insulin as he is only on clear liquids. Will treat the patient with sliding scale insulin. Will restart him once he starts eating regular meals. 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
[2017-09-08] MEDS ORDERED: METOCLOPRAMIDE 5 MG TAB PO PRN (11:51)
[2017-09-08] MEDS ORDERED: D50W 25 GM/50 ML SYRINGE IV PRN (11:54)
[2017-09-08] MEDS ORDERED: GLUCAGON 1 MG/VIAL IM PRN (11:54)
[2017-09-08] MEDS: GABAPENTIN 300 MG CAP PO SCH ×2 (14:40→20:33)
[2017-09-08] MEDS: LIDOCAINE 5% OINT 30 GM TUBE TOP SCH (17:00)
[2017-09-08] MEDS ORDERED: GOLYTELY 4000 ML PO SCH (18:00)
[2017-09-08] MEDS ORDERED: MAGNESIUM CITRATE 300 ML BOT PO SCH (18:00)
[2017-09-08] MEDS: ENOXAPARIN 30 MG/0.3 ML SQ SCH (18:54)
[2017-09-08] MEDS: MAGNESIUM CITRATE 300 ML BOT PO SCH (18:55)
[2017-09-08] MEDS: GOLYTELY 4000 ML PO SCH (19:38)
[2017-09-08] MEDS: FUROSEMIDE 40 MG TABLET PO SCH (20:33)
[2017-09-08] MEDS: ASCORBIC ACID 500 MG TABLET PO SCH (20:33)
[2017-09-08] MEDS: DOCUSATE NA 100 MG CAP PO SCH (20:33)
[2017-09-08] MEDS: ZINC SULFATE 220 MG CAP PO SCH (20:33)
[2017-09-08] MEDS: HOME MED 1 EA UNK (Arginine/Ascorbate Sod/Vite Ac [Arginaid Powder] 1 PACKET) PO SCH (20:35)
[2017-09-08 22:45] LABS: Hematocrit 31.5 % (39.6-49.0)
[2017-09-09] MEDS: METOCLOPRAMIDE 10 MG/2mL INJ IV SCH ×2 (00:09→05:43)
[2017-09-09] MEDS: LIDOCAINE 5% OINT 30 GM TUBE TOP SCH ×3 (01:00→17:00)
[2017-09-09] MEDS: NA CHLORIDE 0.9% 1,000 ML IV SCH ×3 (03:40→23:30)
[2017-09-09 05:14] LABS: Potassium 4.1 mmol/L (3.5-5.1)
[2017-09-09] MEDS: INSULIN -REGULAR HUMAN 50 UNIT/0.5 ML ML SQ SCH ×4 (07:30→21:00)
[2017-09-09] MEDS: PANTOPRAZOLE INJ 80 MG in NA CHLORIDE 0.9% 250 ML IV SCH ×3 (07:43→23:31)
[2017-09-09] MEDS: CARVEDILOL 25 MG TAB PO SCH (09:00)
[2017-09-09] MEDS: ZINC SULFATE 220 MG CAP PO SCH ×2 (09:00→20:41)
[2017-09-09] MEDS ORDERED: COLLAGENASE 30 GM OINTMENT TOP SCH (09:00)
[2017-09-09] MEDS: FUROSEMIDE 40 MG TABLET PO SCH ×2 (09:00→20:50)
[2017-09-09] MEDS: ALLOPURINOL 100 MG TAB PO SCH (09:00)
[2017-09-09] MEDS: DOCUSATE NA 100 MG CAP PO SCH ×2 (09:00→20:41)
[2017-09-09] MEDS: HOME MED 1 EA UNK (Arginine/Ascorbate Sod/Vite Ac [Arginaid Powder] 1 PACKET) PO SCH ×2 (09:00→20:41)
[2017-09-09] MEDS: MEDIHONEY 44 ML TOPICAL TUBE TOP SCH ×2 (09:00→16:34)
[2017-09-09] MEDS: GABAPENTIN 300 MG CAP PO SCH ×3 (09:00→20:41)
[2017-09-09] MEDS: ASCORBIC ACID 500 MG TABLET PO SCH ×2 (09:00→20:40)
[2017-09-09] MEDS: MULTIVITAMIN TAB PO SCH (09:00)
[2017-09-09] MEDS: SPIRONOLACTONE 25 MG TABLET PO SCH (09:00)
[2017-09-09] MEDS: GOLYTELY 4000 ML FT SCH (15:00)
[2017-09-09] MEDS: MAGNESIUM CITRATE 300 ML BOT FT SCH (15:00)
--- NOTE | 2017-09-09 15:43 | ECHO ---
HEIGHT: 5 ft 9 in WEIGHT: 195 lb 4.8 oz DATE OF STUDY: 09/09/[address]: Jabari Choudhury MD 2-DIMENSIONAL: YES M.MODE: YES DOPPLER: YES COLOR FLOW: YES TDS: YES PORTABLE: DEFINITY: BUBBLE STUDY: DIAGNOSIS: CONGESTIVE HEART FAILURE CARDIAC HISTORY: CATHERIZATION: NO SURGERY: NO PROSTHETIC VALVE: NO PACEMAKER: MEASUREMENTS (cm) DIASTOLIC (NORMALS) SYSTOLIC (NORMALS) IVSd 1.0 (0.6-1.2) LVIDs 4.5 (2.0-3.5) LVEF 43% LVIDd 5.7 (3.5-5.7) %FS 22% LVPWd 0.9 (0.6-1.2) Ao Diam 4.1 (2.0-3.7) 2 DIMENSIONAL ASSESSMENT: RIGHT ATRIUM: NORMAL LEFT ATRIUM: DILATED RIGHT VENTRICLE: NORMAL LEFT VENTRICLE: NORMAL TRICUSPID VALVE: NORMAL MITRAL VALVE: MITRAL ANNULAR CALCIFICATION PULMONIC VALVE: NORMAL AORTIC VALVE: SCLEROSIS PERICARDIAL EFFUSION: NONE AORTIC ROOT: NORMAL LEFT VENTRICULAR WALL MOTION: MILD GLOBAL HYPOKINESIS DOPPLER/COLOR FLOW: MILD TRICUSPID REGURGITATION AND MITRAL REGURGITATION. COMMENTS: MILD GLOBAL HYPOKINESIS EJECTION FRACTION 43%. MITRAL ANNULAR CALCIFICATION. AORTIC SCLEROSIS WITH NO STENOSIS. LEFT ATRIAL ENLARGEMENT. TECHNICALLY DIFFICULT STUDY. TECHNOLOGIST: RIZWAN NAZARIO
[2017-09-09] MEDS: ENOXAPARIN 30 MG/0.3 ML SQ SCH (17:00)
[2017-09-09] MEDS ORDERED: METOCLOPRAMIDE 10 MG/2mL INJ IV SCH (19:00)
[2017-09-09] MEDS: GOLYTELY 4000 ML PO SCH (20:27)
[2017-09-09] MEDS: MAGNESIUM CITRATE 300 ML BOT PO SCH (20:40)
[2017-09-09] MEDS: JUVEN PACKET PO SCH (20:41)
[2017-09-09 22:23] LABS: Hematocrit 28.8 % (39.6-49.0)
[2017-09-10] MEDS: LIDOCAINE 5% OINT 30 GM TUBE TOP SCH ×3 (00:25→17:00)
[2017-09-10] MEDS: PANTOPRAZOLE INJ 80 MG in NA CHLORIDE 0.9% 250 ML IV SCH ×3 (02:00→21:14)
[2017-09-10] MEDS: INSULIN -REGULAR HUMAN 50 UNIT/0.5 ML ML SQ SCH ×4 (07:30→21:16)
[2017-09-10] MEDS: DOCUSATE NA 100 MG CAP PO SCH ×2 (09:00→21:15)
[2017-09-10] MEDS: HOME MED 1 EA UNK (Arginine/Ascorbate Sod/Vite Ac [Arginaid Powder] 1 PACKET) PO SCH ×2 (09:00→21:00)
[2017-09-10] MEDS: MULTIVITAMIN TAB PO SCH (09:00)
[2017-09-10] MEDS: ALLOPURINOL 100 MG TAB PO SCH (09:00)
[2017-09-10] MEDS: GABAPENTIN 300 MG CAP PO SCH ×3 (09:00→21:15)
[2017-09-10] MEDS: ASCORBIC ACID 500 MG TABLET PO SCH ×2 (09:00→21:15)
[2017-09-10] MEDS: MEDIHONEY 44 ML TOPICAL TUBE TOP SCH ×2 (09:00→17:30)
[2017-09-10] MEDS: FUROSEMIDE 40 MG TABLET PO SCH ×2 (09:00→21:15)
[2017-09-10] MEDS: SPIRONOLACTONE 25 MG TABLET PO SCH (09:00)
[2017-09-10] MEDS: ZINC SULFATE 220 MG CAP PO SCH ×2 (09:00→21:15)
[2017-09-10] MEDS: JUVEN PACKET PO SCH ×2 (09:00→21:00)
[2017-09-10] MEDS: CARVEDILOL 25 MG TAB PO SCH (09:00)
--- NOTE | 2017-09-10 10:01 | P.PN ---
Subjective Date of Service: 09/09/17 Primary Care Provider: Kei Chief Complaint: Upper GI bleed Subjective: No new changes Review of Systems 10-point ROS is otherwise unremarkable Physical Examination - Vital Signs Temperature: 97.6 F Blood Pressure: 130/60 Pulse: 95 Respirations: 17 Pulse Ox (%): 95 - Physical Exam General: Alert, In no apparent distress HEENT: Atraumatic, PERRLA, EOMI Neck: Supple, JVD not distended Respiratory: Clear to auscultation bilaterally, Normal air movement Cardiovascular: Regular rate/rhythm, Normal S1 S2 Gastrointestinal: Normal bowel sounds, No tenderness Musculoskeletal: No tenderness Integumentary: No rashes Neurological: Normal speech, Normal tone, Normal affect Lymphatics: No axilla or inguinal lymphadenopathy Assessment & Plan - Problems (Diagnosis) (1) GIB (gastrointestinal bleeding) Current Visit: Yes Status: Acute Plan: guiac positive stools in the ER. Will continue monitoring his hct. attempting to do a colon prep in anticipation of colonoscopy with Dr. Squires Qualifiers: GI bleed type/associated pathology: unspecified gastrointestinal hemorrhage type Qualified Code(s): K92.2 - Gastrointestinal hemorrhage, unspecified (2) Chronic renal disease Current Visit: No Status: Acute Plan: Patient is at his baseline. will monitor and give fluids as necessary. Qualifiers: Chronic kidney disease stage: stage 2 (mild) Qualified Code(s): N18.2 - Chronic kidney disease, stage 2 (mild) (3) CHF (congestive heart failure) Current Visit: No Status: Chronic Plan: He had a systolic ER of 23% in '15. Will order a echocardiogram as he has not had a recent one in the last 6months. He is currently stable. The patient does not need diursesis. However if he requires a transfusion. Should give lasix to prevent vol overload Qualifiers: Heart failure type: systolic (4) Diabetes mellitus Onset Date: 01/16/15 Current Visit: No Status: Chronic Plan: Will hold his regular insulin as he is only on clear liquids. Will treat the patient with sliding scale insulin. Will restart him once he starts eating regular meals. 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
--- NOTE | 2017-09-10 10:04 | P.PN ---
Subjective Date of Service: 09/10/17 Primary Care Provider: Kei Chief Complaint: Upper GI bleed Subjective: New changes (hb has fallen again approx 3gm per since admission) Review of Systems 10-point ROS is otherwise unremarkable Physical Examination - Vital Signs Temperature: 97.6 F Blood Pressure: 130/60 Pulse: 95 Respirations: 17 Pulse Ox (%): 95 - Physical Exam General: Alert, In no apparent distress HEENT: Atraumatic, PERRLA, EOMI Neck: Supple, JVD not distended Respiratory: Clear to auscultation bilaterally, Normal air movement Cardiovascular: Regular rate/rhythm, Normal S1 S2 Gastrointestinal: Normal bowel sounds, No tenderness Musculoskeletal: No tenderness Integumentary: No rashes Neurological: Normal speech, Normal tone, Normal affect Lymphatics: No axilla or inguinal lymphadenopathy Assessment & Plan - Problems (Diagnosis) (1) GIB (gastrointestinal bleeding) Current Visit: Yes Status: Acute Plan: guiac positive stools in the ER. Will continue monitoring his hct. continue to do a colon prep in anticipation of colonoscopy with Dr. Squires. Will type and screen and hold for now Qualifiers: GI bleed type/associated pathology: unspecified gastrointestinal hemorrhage type Qualified Code(s): K92.2 - Gastrointestinal hemorrhage, unspecified (2) Chronic renal disease Current Visit: No Status: Acute Plan: Patient is at his baseline. will monitor and give fluids as necessary. Qualifiers: Chronic kidney disease stage: stage 2 (mild) Qualified Code(s): N18.2 - Chronic kidney disease, stage 2 (mild) (3) CHF (congestive heart failure) Current Visit: No Status: Chronic Plan: He had a systolic ER of 23% in . Will order a echocardiogram as he has not had a recent one in the last 6months. He is currently stable. The patient does not need diursesis. However if he requires a transfusion. Should give lasix to prevent vol overload Qualifiers: Heart failure type: systolic (4) Diabetes mellitus Onset Date: 01/16/15 Current Visit: No Status: Chronic Plan: Will hold his regular insulin as he is only on clear liquids. Will treat the patient with sliding scale insulin. Will restart him once he starts eating regular meals. Qualifiers: Diabetes mellitus type: type 2 Diabetes mellitus long-term insulin use: with long-term use Diabetes mellitus complication status: without complication Qualified Code(s): E11.9 - Type 2 diabetes mellitus without complications; Z79.4 - half-way (current) use of insulin Discharge Plan: Home Plan to discharge in: 24 Hours - Code Status/Comfort Care Code Status Assessed: No Code Status: Full Code Physician Review: Patient Assessed, Agree with Above Assessment and Plan Critical Care: No Time Spent Managing Pts Care (In Minutes): 20
[2017-09-10] MEDS: NA CHLORIDE 0.9% 1,000 ML IV SCH ×2 (13:23→21:15)
[2017-09-10] MEDS: MAGNESIUM CITRATE 300 ML BOT FT SCH (15:00)
[2017-09-10] MEDS: GOLYTELY 4000 ML FT SCH (15:00)
[2017-09-10] MEDS: ENOXAPARIN 30 MG/0.3 ML SQ SCH (17:00)
[2017-09-10 17:26] LABS: Hematocrit 28.2 % (39.6-49.0)
[2017-09-10] MEDS: GOLYTELY 4000 ML PO SCH (19:00)
[2017-09-10] MEDS: MAGNESIUM CITRATE 300 ML BOT PO SCH (19:00)
[2017-09-11] MEDS: LIDOCAINE 5% OINT 30 GM TUBE TOP SCH ×2 (00:45→08:23)
[2017-09-11] MEDS: NA CHLORIDE 0.9% 1,000 ML IV SCH ×2 (05:40→08:42)
[2017-09-11] MEDS: INSULIN -REGULAR HUMAN 50 UNIT/0.5 ML ML SQ SCH ×2 (07:30→11:48)
[2017-09-11] MEDS: PANTOPRAZOLE INJ 80 MG in NA CHLORIDE 0.9% 250 ML IV SCH (08:20)
[2017-09-11] MEDS: SPIRONOLACTONE 25 MG TABLET PO SCH (08:21)
[2017-09-11] MEDS: CARVEDILOL 25 MG TAB PO SCH (08:21)
[2017-09-11] MEDS: ASCORBIC ACID 500 MG TABLET PO SCH (08:21)
[2017-09-11] MEDS: ZINC SULFATE 220 MG CAP PO SCH (08:21)
[2017-09-11] MEDS: FUROSEMIDE 40 MG TABLET PO SCH (08:22)
[2017-09-11] MEDS: ALLOPURINOL 100 MG TAB PO SCH (08:22)
[2017-09-11] MEDS: MULTIVITAMIN TAB PO SCH (08:22)
[2017-09-11] MEDS: GABAPENTIN 300 MG CAP PO SCH (08:22)
[2017-09-11] MEDS: DOCUSATE NA 100 MG CAP PO SCH (08:22)
[2017-09-11] MEDS: HOME MED 1 EA UNK (Arginine/Ascorbate Sod/Vite Ac [Arginaid Powder] 1 PACKET) PO SCH (08:23)
[2017-09-11] MEDS: JUVEN PACKET PO SCH (08:23)
[2017-09-11] MEDS: MEDIHONEY 44 ML TOPICAL TUBE TOP SCH (08:33)
[2017-09-11 09:55] VITALS: O2SAT 95
--- NOTE | 2017-09-11 10:16 | P.DS ---
Admission Date: 09/07/17 Discharge Date: 09/11/17 Primary Care Provider: Kei Disposition: TRANSFER TO [facility] Discharge Condition: FAIR Reason for Admission: Upper GI bleed - Problems (1) GIB (gastrointestinal bleeding) Current Visit: Yes Status: Acute Qualifiers: GI bleed type/associated pathology: unspecified gastrointestinal hemorrhage type Qualified Code(s): K92.2 - Gastrointestinal hemorrhage, unspecified (2) Chronic renal disease Current Visit: No Status: Acute Qualifiers: Chronic kidney disease stage: stage 2 (mild) Qualified Code(s): N18.2 - Chronic kidney disease, stage 2 (mild) (3) CHF (congestive heart failure) Current Visit: No Status: Chronic Qualifiers: Heart failure type: systolic (4) Diabetes mellitus Onset Date: 01/16/15 Current Visit: No Status: Chronic Qualifiers: Diabetes mellitus type: type 2 Diabetes mellitus detention insulin use: with detention use Diabetes mellitus complication status: without complication Qualified Code(s): E11.9 - Type 2 diabetes mellitus without complications; Z79.4 - [facility] (current) use of insulin Brief History of Present Illness: Patient is a resident of [facility]. I was called when he had several bowel movements with blood in his stools. The patient described no abdominal pain, or pain when passing the stool. He has no complaints of light headness, dizziness or shortness of breath. [facility] has been in the [facility] with a negron cather for obstructive uropathy. Hospital Course: Patient was admitted to the floor. His hb dropped. But stablized at 9.7. Is up to approx 10 this morning. We were not able to get a good bowel prep for a scope. Will discharge him back to [facility]. Have the patient follow up with Dr. Squires for an outpatient colonoscopy Vital Signs/Physical Exam: Temp Pulse Resp BP Pulse Ox 97.8 F 92 H 20 141/73 H 97 09/11/17 08:00 09/11/17 08:22 09/11/17 08:00 09/11/17 08:22 09/11/17 08:00 General: Alert, In no apparent distress HEENT: Atraumatic, PERRLA, EOMI Neck: Supple, JVD not distended Respiratory: Clear to auscultation bilaterally, Normal air movement Cardiovascular: Regular rate/rhythm, Normal S1 S2 Gastrointestinal: Normal bowel sounds, No tenderness Musculoskeletal: No tenderness Integumentary: No rashes Neurological: Normal speech, Normal tone, Normal affect Lymphatics: No axilla or inguinal lymphadenopathy Laboratory Data at Discharge: WBC 9.6 K/uL (4.3-10.9) 09/08/17 04:53 Hgb 9.7 g/dL (13.6-17.9) L 09/10/17 17:08 Hct 30.5 % (39.6-49.0) L 09/11/17 08:34 Plt Count 217 K/uL (152-406) 09/08/17 04:53 PT 27.2 SECONDS (9.5-12.5) H 09/07/17 20:15 INR 2.29 09/07/17 20:15 Sodium 145 mmol/L (136-145) 09/09/17 04:32 Potassium 4.1 mmol/L (3.5-5.1) 09/09/17 04:32 BUN 34 mg/dL (7-18) H D 09/09/17 04:32 Creatinine 1.30 mg/dL (0.55-1.3) 09/09/17 04:32 Glucose 252 mg/dL (74-106) H 09/09/17 04:32 Magnesium 2.0 mg/dL (1.8-2.4) 09/08/17 08:14 Total Bilirubin 0.6 mg/dL (0.2-1.0) 09/07/17 17:40 AST 31 U/L (15-37) 09/07/17 17:40 ALT 35 U/L (12-78) 09/07/17 17:40 Alkaline Phosphatase 82 U/L (45-117) 09/07/17 17:40 Lipase 172 U/L (73-393) 09/07/17 17:40 Home Medications: Carvedilol [Coreg] 25 mg PO DAILY 07/22/17 Furosemide [Lasix] 40 mg PO BID 07/22/17 Gabapentin [Gralise] 300 mg PO TID 07/22/17 Metoclopramide HCl [Reglan] 10 mg PO Q4H PRN 07/22/17 Spironolactone [Aldactone] 50 mg PO DAILY 07/22/17 Allopurinol [Zyloprim*] 100 mg PO DAILY 08/07/17 Apixaban [Eliquis] 5 mg PO BID 08/07/17 Docusate [Colace Cap*] 100 mg PO BID 08/07/17 Insulin Aspart [Novolog Flexpen] See Protocol SQ ACHS 08/07/17 Mag Hydroxide 8% [Milk Of Magnesia*] 30 ml PO DAILY 08/07/17 Omeprazole [Prilosec] 40 mg PO DAILY 08/07/17 Acetaminophen [Tylenol -Tablet] 650 mg PO TID 09/08/17 Acetic Acid 0.25% [Acetic Acid 0.25%*] 1 amee TOP DAILY 09/08/17 Arginine/Ascorbate Sod/Juan Jose AC [Arginaid Powder] 1 packet PO BID 09/08/17 Ascorbic Acid [Vitamin C] 500 mg PO BID 09/08/17 Ciprofloxacin HCl [Cipro 250 MG Tablet*] 500 mg PO BID 09/08/17 Collagenase [Santyl Ointment*] 1 amee TOP DAILY 09/08/17 Insulin Detemir [Levemir*] 12 units SQ BIDWM 09/08/17 LIDOCAINE 5% Ointment [Lidocaine HCl*] 1 amee TOP Q8H 09/08/17 Metformin HCl [Glucophage] 500 mg PO DAILY WITH BREAKFAST 09/08/17 Multivitamin [Multiple Vitamins] 1 each PO DAILY 09/08/17 Zinc Sulfate [Zinc Sulfate*] 220 mg PO BID 09/08/17 Patient Discharge Instructions: Order cbc on 09/16/17 from [employer] Diet: Regular Activity: Ad jeri Followup: Stoney Simental MD [ASSOCIATE-ACTIVE - CAN ADMIT] - 1 Week Physician Review: Patient Assessed, Agree with Above Assessment and Plan Time spent managing pt's care (in minutes): 40
[2017-09-11 12:39] VITALS: BP 121/57; TEMP 99.1
== END 2017-09-11 13:58 | DRG 378 ==
LOC: ER 17:11 → ERHOLD 19:01 → 4TH 21:05
PROVIDERS: ADMIT Internal Medicine; ATTEND Internal Medicine
DX: K92.1 Melena (principal); D62 Acute posthemorrhagic anemia; I13.0 Hypertensive heart and chronic kidney disease with heart failure and stage 1 through stage 4 chronic kidney disease, or unspecified chronic kidney disease; I50.22 Chronic systolic (congestive) heart failure; E11.22 Type 2 diabetes mellitus with diabetic chronic kidney disease; N18.2 Chronic kidney disease, stage 2 (mild); I25.10 Atherosclerotic heart disease of native coronary artery without angina pectoris; E78.5 Hyperlipidemia, unspecified; E11.40 Type 2 diabetes mellitus with diabetic neuropathy, unspecified; G89.29 Other chronic pain; M19.90 Unspecified osteoarthritis, unspecified site; E66.9 Obesity, unspecified; M10.9 Gout, unspecified; Z68.32 Body mass index [BMI] 32.0-32.9, adult; Z79.4 Long term (current) use of insulin; Z79.01 Long term (current) use of anticoagulants; Z88.5 Allergy status to narcotic agent; Z88.0 Allergy status to penicillin; Z95.5 Presence of coronary angioplasty implant and graft; Z95.0 Presence of cardiac pacemaker
CPT/HCPCS: 36415; 74176; 80048; 80076; 81003; 81015; 82962; 83036; 83690; 83735; 84132; 85014; 85018; 85025; 85610; 86850; 86900; 86901; 93306; 94760; 97163; 99285; C9113; J1650; J2765; J3590; J7030

== ENCOUNTER 2017-09-15 07:30 | Inpatient (IN) | payer OTHER ==
--- OUTSIDE RECORDS SUMMARY | 2017-09-15 07:32 | XMS REPORT | Clinical Summary ---
:1940 Author Organization [facility] Address [address] [place] [address] Care Team Providers Name Role Phone Asked, [...] INFLUENZA VACCINE 09/10/2017 Results Not on fileafter 09/14/2016 Insurance Payer Benefit Plan / Group Subscriber ID Type Phone Address [employer] FARM INS [employer]ARM INS xxxxxxxxxxxx Commercial MEDICARE MEDICARE PART A AND B xxxxxxxxxx Medicare [place], [place] Home: [phone] [place], [place] [phone]
[2017-09-15 08:58] LABS: Absolute Lymphocytes (CBC) 1.8 K/uL (0.7-4.9); Absolute Monocytes 1.1 K/uL (0.1-1.3); Absolute Neutrophil 12.5 K/uL (1.8-8.0); Basophils % 0.6 % (0-1.3); Eosinophils % 0.2 % (0-4.4); Hematocrit 36.4 % (39.6-49.0); Lymphocytes % 11.9 % (15.3-44.8); MCH 30.7 pg (27.0-35.0); MCV 91.8 fL (80-100); MPV 9.1 fL (7.6-11.3); Monocytes % 7.1 % (3.3-12.3); RBC Red Blood Cell Count 3.97 M/uL (4.33-5.43)
[2017-09-15 09:38] LABS: Protime INR 2.33
[2017-09-15 09:40] LABS: Albumin 2.1 g/dL (3.4-5.0); Bilirubin Direct 0.2 mg/dL (0-0.2); Bilirubin Total 0.5 mg/dL (0.2-1.0); CKMB Creatine Kinase MB 7.2 ng/mL (0.3-3.6); Magnesium 2.2 mg/dL (1.8-2.4); Potassium 4.1 mmol/L (3.5-5.1); Protein, Total 6.1 g/dL (6.4-8.2)
--- NOTE | 2017-09-15 09:42 | RAD REPORT ---
EXAM DESCRIPTION: RAD - Chest Single View - 09/15/2017 9:36 am CLINICAL HISTORY: AMS Chest pain. COMPARISON: Chest Single View dated 08/08/2017; Chest Single View dated 08/07/2017; Chest Single View dated 08/06/2017; Chest Single View dated 07/23/2017 FINDINGS: Portable technique limits examination quality. The lungs are grossly clear. The heart is normal in size. Dual lead pacer/defibrillator device is pre sent. Bilateral humeral prostheses noted. IMPRESSION: No acute intrathoracic process suspected.
[2017-09-15] MEDS: Levofloxacin500mg IV 500 MG/100 ML BAG IV SCH (11:00)
--- NOTE | 2017-09-15 11:56 | P.HP ---
Certification for Inpatient Patient admitted to: Inpatient With expected LOS: >2 Midnights Patient will require the following post-hospital care: Correction Practitioner: I am a practitioner with admitting privileges, knowledge of patient current condition, hospital course, and medical plan of care. Services: Services provided to patient in accordance with Admission requirements found in Title 42 Section 412.3 of the Code of Federal Regulations Patient History Date of Service: 09/15/17 Primary Care Provider: Kei Reason for admission: acute on chronic renal failure History of Present Illness: [facility] He has been having decreased urine output. Yesterday he had swelling and bruising of his upper extremities. He was found to be hypotensive and was sent to the ER. Was found to have a decrease of his gfr. His baseline gfr is in the 50's The patient was swollen and had some shortness of breath. Allergies codeine [Codeine] Allergy (Mild, Verified 07/21/17 21:57) Itching/Hives/Rash hydrocodone [Hydrocodone] Allergy (Mild, Verified 08/07/17 02:25) Itching/Hives/Rash morphine Allergy (Mild, Verified 08/07/17 02:25) Itching/Hives/Rash oxycodone [Oxycodone] Allergy (Mild, Verified 08/07/17 02:25) Itching/Hives/Rash Penicillins Allergy (Mild, Verified 08/07/17 02:25) Itching/Hives/Rash Hydrocodone Allergy (Uncoded 07/21/17 21:57) Unknown Hydrocodone-Alexi Allergy (Uncoded 11/22/16 02:06) Unknown Home Medications: Carvedilol [Coreg] 25 mg PO DAILY 07/22/17 Furosemide [Lasix] 40 mg PO BID 07/22/17 Gabapentin [Gralise] 300 mg PO TID 07/22/17 Metoclopramide HCl [Reglan] 10 mg PO Q4H PRN 07/22/17 Spironolactone [Aldactone] 50 mg PO DAILY 07/22/17 Allopurinol [Zyloprim*] 100 mg PO DAILY 08/07/17 Apixaban [Eliquis] 5 mg PO BID 08/07/17 Docusate [Colace Cap*] 100 mg PO BID 08/07/17 Insulin Aspart [Novolog Flexpen] See Protocol SQ ACHS 08/07/17 Mag Hydroxide 8% [Milk Of Magnesia*] 30 ml PO DAILY 08/07/17 Omeprazole [Prilosec] 40 mg PO DAILY 08/07/17 Acetaminophen [Tylenol -Tablet] 650 mg PO TID 09/08/17 Acetic Acid 0.25% [Acetic Acid 0.25%*] 1 amee TOP DAILY 09/08/17 Arginine/Ascorbate Sod/Juan Jose AC [Arginaid Powder] 1 packet PO BID 09/08/17 Ascorbic Acid [Vitamin C] 500 mg PO BID 09/08/17 Ciprofloxacin HCl [Cipro 250 MG Tablet*] 500 mg PO BID 09/08/17 Collagenase [Santyl Ointment*] 1 amee TOP DAILY 09/08/17 Insulin Detemir [Levemir*] 12 units SQ BIDWM 09/08/17 LIDOCAINE 5% Ointment [Lidocaine HCl*] 1 amee TOP Q8H 09/08/17 Metformin HCl [Glucophage] 500 mg PO DAILY WITH BREAKFAST 09/08/17 Multivitamin [Multiple Vitamins] 1 each PO DAILY 09/08/17 Zinc Sulfate [Zinc Sulfate*] 220 mg PO BID 09/08/17 - Past Medical/Surgical History Diabetic: Yes -: CAD -: HTN -: DM -: Chronic pain -: Hyperlipidemia -: DM Neuropathy -: Gout -: Osteoarthritis -: pacemaker -: sx for pain pump insertion -: shoulder replacement BL -: L Knee replacement -: appendectemy -: CARDIAC STENTS -: PACEMAKER Psychosocial/ Personal History: , 3 children, Retired - Family History Father -: Lung disease, Cancer Mother -: Heart disease, Hypertension, Kidney disease Sister -: Heart disease - Social History Alcohol use: No CD- Drugs: No Caffeine use: No Review of Systems Respiratory: Shortness of Breath Cardiovascular: Edema (Of the upper extremities. ) Gastrointestinal: Distention (Postive dullness on the dependent portions.) Physical Examination - Physical Exam General: Alert, In no apparent distress HEENT: Atraumatic, PERRLA, Mucous membr. moist/pink, EOMI, Sclerae nonicteric Neck: Supple, 2+ carotid pulse no bruit, No LAD, Without JVD or thyroid abnormality Respiratory: Clear to auscultation bilaterally, Normal air movement Cardiovascular: Regular rate/rhythm, Normal S1 S2 Gastrointestinal: Normal bowel sounds, No tenderness, Ascites (Postive dullness on the dependent portions.) Musculoskeletal: No tenderness Integumentary: No rashes Neurological: Normal gait, Normal speech, Normal strength at 5/5 x4 extr, Normal tone, Normal affect Lymphatics: No axilla or inguinal lymphadenopathy - Studies Laboratory Data (last 24 hrs) 09/15/17 09:09: PT 27.7 H, INR 2.33, APTT 30.9 09/15/17 08:37: WBC 15.6 H D, Hgb 12.2 L D, Hct 36.4 L D, Plt Count 359 D 09/15/17 08:37: Sodium 137, Potassium 4.1, BUN 47 H, Creatinine 2.20 H, Glucose 177 H, Magnesium 2.2, Total Bilirubin 0.5, AST 21, ALT 14, Alkaline Phosphatase 49 Assessment and Plan - Problems (Diagnosis) (1) Acute on chronic kidney failure Onset Date: 08/07/17 Current Visit: No Status: Acute Plan: will consult urology and nephrology. Qualifiers: Acute renal failure type: unspecified Chronic kidney disease stage: stage 4 (severe) Qualified Code(s): N17.9 - Acute kidney failure, unspecified; N18.4 - Chronic kidney disease, stage 4 (severe) (2) Diabetes 1.5, managed as type 1 Current Visit: Yes Status: Acute Plan: Will put him on sliding scale insulin (3) Urinary (tract) obstruction Current Visit: Yes Status: Acute Plan: Consult to Dr. Dan who initially placed the negron (4) CHF (congestive heart failure) Current Visit: No Status: Chronic Plan: Will try to improve kidney function and diuresis the patient appropriated.Postive dullness on the dependent portions. Qualifiers: Heart failure type: systolic Discharge Plan: Home - Advance Directives Does patient have a Living Will: Yes Does patient have a Durable POA for Healthcare: No - Code Status/Comfort Care Code Status Assessed: No Code Status: Full Code Physician Review: Patient Assessed, Agree with Above Assessment and Plan Critical Care: No Time Spent Managing Pts Care (In Minutes): 45
--- NOTE | 2017-09-15 12:34 | RAD REPORT ---
EXAM DESCRIPTION: VAS - Extrem Venous W Compress Markell - 09/15/2017 11:17 am CLINICAL HISTORY: SWELLING Upper extremity swelling COMPARISON: Extrem Venous W Compress Markell dated 07/13/2015 TECHNIQUE: Real-time sonographic interrogation of the left and right lower extremity upper venous sy stems was performed. FINDINGS: Normal compressibility, flow augmentation, phasic flow and spontaneous flow is identified in both the left and right upper extremity deep venous systems. IMPRESSION: No sonographic evidence of left or right lower extremity upper venous thrombosis.
--- NOTE | 2017-09-15 12:41 | ER ---
Nurse's Notes [facility] Name: Laureano Valenzuela Age: 76 yrs Sex: Male : 1940 Arrival Date: 09/15/2017 Time: 07:35 Bed 3 Private MD: Diagnosis: renal failure Presentation: 09/15 07:35 Presenting complaint: EMS states: Per usp staff pt was difficult to arouse hb this morning. Currently at baseline. Transition of care: patient was received from another setting of care (long-term care [facility]. Onset of symptoms was September 15, 2017. Risk Assessment: Do you want to hurt yourself or someone else? Patient reports no desire to harm self or others. Initial Sepsis Screen: Does the patient meet any 2 criteria? No. Patient's initial sepsis screen is negative. Does the patient have a suspected source of infection? No. Patient's initial sepsis screen is negative. Care prior to arrival: None. 07:35 Method Of Arrival: EMS: [facility] hb 07:35 Acuity: [place] 3 hb Historical: - Allergies: 07:42 Codeine; hb 07:42 HYDROCODONE; hb 07:42 Morphine; hb 07:42 PENICILLINS; hb 07:42 Demerol; hb 07:42 Oxycodone; hb 07:42 Iodine; hb - Home Meds: 07:42 allopurinol 300 mg Oral tab 1 tab once daily [Active]; Cefuroxime Oral 500 mg twice a hb day [Active]; Coreg 25 mg Oral tab 1 tab 2 times per day [Active]; dilaudid pump [Active]; Insulin: Novolin 70/30 Sub-Q 20 units in am and 45 units at night [Active]; metoclopramide HCl 10 mg Oral tab 1 tab three times a day [Active]; pantoprazole 40 mg Oral TbEC 1 tab once daily [Active]; lisinopril 10 mg Oral tab 1 tab once daily [Active]; simvastatin 10 mg Oral tab 1 tab nightly [Active]; furosemide 40 mg Oral tab 1 tab once daily [Active]; warfarin 3.5 mg Oral once daily [Active]; - PMHx: 07:42 Back pain; CHF; Chronic pain; COPD; Diabetes - IDDM; High Cholesterol; Gout; hb Hypertension; Myocardial infarction; - Immunization history:: Adult Immunizations up to date. - Social history:: Smoking status: Patient/guardian denies using tobacco. - Ebola Screening: : No symptoms or risks identified at this time. Screenin:42 Abuse screen: Denies threats or abuse. Denies injuries from another. Nutritional hb screening: No deficits noted. Tuberculosis screening: No symptoms or risk factors identified. Fall Risk Total Rey Fall Scale indicates High Risk Score (45 or more points). Fall prevention measures have been instituted. Side Rails Up X 2 Frequent Obs/Assessments Occuring As available patient and family educated on Fall Prevention Program and Strategies. Assessment: 07:40 General: Appears in no apparent distress. Behavior is calm, cooperative. Pain: Pain hb currently is 4 out of 10 on a pain scale. Neuro: Level of Consciousness is obeys commands, lethargic. Cardiovascular: Heart tones S1 S2 present Capillary refill < 3 seconds Patient's skin is warm and dry. Edema is 3+ to BUEs, BLEs. Respiratory: Airway is patent Trachea midline Respiratory effort is even, unlabored, Respiratory pattern is regular, symmetrical, Breath sounds are clear bilaterally. GI: No signs and/or symptoms were reported involving the gastrointestinal system. : No signs and/or symptoms were reported regarding the genitourinary system. EENT: No signs and/or symptoms were reported regarding the EENT system. Derm: No signs and/or symptoms reported regarding the dermatologic system. Skin is pink, warm \T\ dry. petichae noted to BUEs, hands, and abdomen. Musculoskeletal: No signs and/or symptoms reported regarding the musculoskeletal system. 08:15 Reassessment: Unable to establish IV access, Dr. Finn notified. Inside lab called for blood draw. 08:30 Reassessment: Patient appears in no apparent distress at this time. No changes from hb previously documented assessment. Patient and/or family updated on plan of care and expected duration. Pain level reassessed. 09:30 Reassessment: Patient appears in no apparent distress at this time. No changes from hb previously documented assessment. Patient and/or family updated on plan of care and expected duration. Pain level reassessed. 10:30 Reassessment: Patient appears in no apparent distress at this time. No changes from hb previously documented assessment. Patient and/or family updated on plan of care and expected duration. Pain level reassessed. Admission ordered, awaiting room assignment at this time. 10:48 Reassessment: pt IV access found to be dc'd, no bleeding noted, a pressure dressing was sg applied, notified of no peripheral access at this time, pt to be transported to ICU for insertion of PICC. 11:02 Reassessment: PIV displaced. No bleeding noted. Dr. Finn and KARMA Pendleton RN notified. hb Family remains at bedside. 11:45 Reassessment: Transfer to floor pending PICC placement. hb 12:45 Reassessment: Patient appears in no apparent distress at this time. No changes from previously documented assessment. Patient and/or family updated on plan of care and expected duration. Pain level reassessed. Awaiting PICC placement at this time. 13:45 Reassessment: Patient appears in no apparent distress at this time. No changes from previously documented assessment. Patient and/or family updated on plan of care and expected duration. Pain level reassessed. 14:01 Reassessment: Daughter Laureen Ewing [phone]. hb 14:17 Reassessment: ICU PICC nurse unable to insert PICC line d/t pt swelling of BUE, and a sg preexisting pace maker. notified, pt to be transported back to exam room 6 for insertion of central line. 14:41 Reassessment: Dominique TONEY at bedside for US PIV placement. hb 15:02 Reassessment: US PIV unsuccessful, Dr. Finn notified. hb 15:06 Reassessment: JASMIN Burrell at bedside for CVC placement. hb 15:28 Derm: Stave 2 pressure ulcer to right buttock, stage 1 to left buttock. Areas cleaned hb with NS and dressed with sterile 4x4s. 16:02 Reassessment: Patient appears in no apparent distress at this time. No changes from sg previously documented assessment. Patient and/or family updated on plan of care and expected duration. Pain level reassessed. Rajesh MILLER at bedside for placement of central line to L groin. 16:15 Reassessment: Patient appears in no apparent distress at this time. No changes from sg previously documented assessment. Patient and/or family updated on plan of care and expected duration. Pain level reassessed. pt to be transported up stairs to room 412 at this time, pt grandson in law updated on POC, everyone stated understanding. Vital Signs: 07:37 BP 136 / 69; Pulse 102; Resp 16; Temp 98; Pulse Ox 100% on R/A; Pain 5/10; hb 08:30 BP 128 / 88; Pulse 100; Resp 15; Pulse Ox 100% on R/A; hb 09:45 BP 112 / 91; Pulse 98; Resp 15; Pulse Ox 100% on R/A; hb 10:45 BP 110 / 71; Pulse 98; Resp 17; Pulse Ox 100% on R/A; hb 11:45 BP 116 / 68; Pulse 88; Resp 15; Pulse Ox 100% on R/A; hb 13:45 BP 122 / 70; Pulse 87; Resp 16; Pulse Ox 100% on R/A; hb 14:45 BP 118 / 72; Pulse 86; Resp 17; Pulse Ox 100% on R/A; hb ED Course: 07:35 Patient arrived in ED. hb 07:36 Triage completed. hb 07:40 No provider procedures requiring assistance completed. sg 07:42 Arm band placed on right wrist. hb 07:42 Patient has correct armband on for positive identification. Bed in low position. Call hb light in reach. Side rails up X2. site monitor on. Pulse ox on. NIBP on. 07:43 Houston Finn MD is Attending Physician. kdr 07:45 Michelle Barry, FENG is Primary Nurse. hb 08:15 Inserted at bedside for IV attempt, EJ. Assisted with ultrasound sg guided IV attempt. 18 G Sureflow IV catheter inserted in RAC, secured with tegaderm and tape. 08:19 EKG done, by sap technical architect. reviewed by Houston Finn MD. at1 08:30 Initial lab(s) drawn, by ED staff, sent to lab. sg 09:25 X-ray completed. Portable x-ray completed in exam room. Patient tolerated procedure jb2 well. 09:36 XRAY Chest (1 view) In Process Unspecified. EDMS 12:00 pt lab orders delayed d/t limited vascular access, pt to be transported to ICU sg insertion of PICC line. 12:05 Ultrasound completed. Patient tolerated well. Note: UPP DERIAN DOPP AND RENAL US hr DONEPORTABLE /BEDSIDE. 12:37 Tamara Dan MD is Hospitalizing Provider. la1 12:39 Note: RENAL U/S DONE BEDSIDE. hr 16:03 Assisted provider with central line placement. Set up central line tray. Triple lumen sg line placed in left femoral. Line placed by Ashanti ELLISON Placement verified by blood return, Dressed with Tegaderm, Blood was collected. Patient tolerated well. Patient \T\ family education about procedure, CLABSI prevention and S/S of infection? Yes. Time-out/Briefing performed prior to start of procedure? Yes. Was handwashing/sanitizing done immediately prior to procedure? Yes. Was patient positioned to in a way to prevent air embolism? Yes. Was procedure site sterilized? Yes, with Was the site allowed to dry? Yes. Was local anesthetic and/or sedation utilized? Yes. During the procedure, did the Practitioner(s) maintain a sterile field? Yes. Were unused ports clamped during insertion? Yes. Was blood aspirated from each lumen? Yes. 16:05 Patient admitted, IV remains in place. pt central line remains intact. sg Administered Medications: 10:48 Drug: LevaQUIN 500 mg Volume: 100 ml; Route: IVPB; Infused Over: 60 mins; Site: right hb antecubital; Outcome: 12:41 Decision to Hospitalize by Provider. la1 16:45 Admitted to Tele accompanied by nurse, with chart, Report called to FENG Rose hb 16:45 Condition: stable 16:45 Instructed on the need for admit, Demonstrated understanding of instructions. 16:58 Patient left the ED. sg Signatures: Dispatcher [employer] EDMS Leandro Novoa RN RN sg Houston Finn MD MD kdr Buechter, Jesse jb2 Sonia Navarrete hr Dominique arroyo, fabrics and material cutter EKG Tat1 Dinh Qurehsi RN RN la1 Michelle Barry RN RN hb Corrections: (The following items were deleted from the chart) 07:45 07:37 BP 136 / 69; Pulse 102bpm; Resp 16bpm; Pulse Ox 100% 2 lpm Nasal Cannula; Temp hb 98F; Pain 5/10; hb 16:16 16:02 Reassessment: Patient appears in no apparent distress at this time. No changes sg from previously documented assessment. Patient and/or family updated on plan of care and expected duration. Pain level reassessed. Rajesh HOT BOX CHECKER at bedside for placement of central line to R groin sg
[2017-09-15 12:44] LABS: Urine Blood 3+ (NEG); Urine Glucose NEGATIVE (NEG); Urine Protein 2+ (NEG); Urine Specific Gravity 1.015 (1.005-1.030); Urine pH 5.5 (5.0-7.0)
--- NOTE | 2017-09-15 12:47 | RAD REPORT ---
EXAM DESCRIPTION: US - Renal Ultrasound-Complete - 09/15/2017 12:29 pm CLINICAL HISTORY: Abnormal renal function COMPARISON: CT study September 07 FINDINGS: The right kidney measures 11.6 x 5.6 x 4.4 cm. The left kidney measures 10.3 x 5.3 x 4.9 cm. Cortical thickness is decreased and echogenicity is increased consistent with medical renal disea se. No hydronephrosis is present. There are few echogenic foci present that are probably renal hilum fat rather than nonshadowing stones. No obstructing calculus is seen. No solid mass suspected. Renal cysts are present with a few having a minimal amount of low-level inte rnal echogenicity. Bladder assessment was very limited. Ascites is present but not fully assessed on this examination. IMPRESSION: No hydronephrosis is present. No suspicious renal mass identified. Cortical thinning and increased cortical echogenicity are present indicating underlying significant m edical renal disease. Bladder was too contracted for assessment.
--- NOTE | 2017-09-15 16:59 | EDPHYS ---
Physician Documentation [facility] Name: Laureano Valenzuela Age: 76 yrs Sex: Male : 1940 Arrival Date: 09/15/2017 Time: 07:35 Bed 3 Private MD: ED Physician Houston Finn HPI: 09/15 18:31 This 76 yrs old Male presents to ER via EMS with complaints of Lethargy. kdr 18:32 The patient was sent by [facility] because he was difficult to arouse. He appears to kdr be at baseline neurologically at this time. He does c/o bilateral upper extremity pain and swelling that has been ongoing and worsening for the last two days according to the family and patient. He has no other focal or global c/o. Onset: The symptoms/episode began/occurred gradually, 2 day(s) ago. Severity of symptoms: At their worst the symptoms were mild moderate just prior to arrival, in the emergency department the symptoms are unchanged. The patient has not experienced similar symptoms in the past. It is unknown whether or not the patient has recently seen a physician. Historical: - Allergies: 07:42 Codeine; hb 07:42 HYDROCODONE; hb 07:42 Morphine; hb 07:42 PENICILLINS; hb 07:42 Demerol; hb 07:42 Oxycodone; hb 07:42 Iodine; hb - Home Meds: 07:42 allopurinol 300 mg Oral tab 1 tab once daily [Active]; Cefuroxime Oral 500 mg twice a hb day [Active]; Coreg 25 mg Oral tab 1 tab 2 times per day [Active]; dilaudid pump [Active]; Insulin: Novolin 70/30 Sub-Q 20 units in am and 45 units at night [Active]; metoclopramide HCl 10 mg Oral tab 1 tab three times a day [Active]; pantoprazole 40 mg Oral TbEC 1 tab once daily [Active]; lisinopril 10 mg Oral tab 1 tab once daily [Active]; simvastatin 10 mg Oral tab 1 tab nightly [Active]; furosemide 40 mg Oral tab 1 tab once daily [Active]; warfarin 3.5 mg Oral once daily [Active]; - PMHx: 07:42 Back pain; CHF; Chronic pain; COPD; Diabetes - IDDM; High Cholesterol; Gout; hb Hypertension; Myocardial infarction; - Immunization history:: Adult Immunizations up to date. - Social history:: Smoking status: Patient/guardian denies using tobacco. - Ebola Screening: : No symptoms or risks identified at this time. ROS: 18:32 Constitutional: The patient is a poor historian but generally has no c/o except for his kdr bilateral arm pain and swelling. His also has multiple eccyhmotic areas on his upper extremities Exam: 18:32 Constitutional: This is a well developed, well nourished patient who is awake, alert, kdr and in no acute distress. Head/Face: Normocephalic, atraumatic. Eyes: Pupils equal round and reactive to light, extra-ocular motions intact. Lids and lashes normal. Conjunctiva and sclera are non-icteric and not injected. Cornea within normal limits. Periorbital areas with no swelling, redness, or edema. Neck: Trachea midline, no thyromegaly or masses palpated, and no cervical lymphadenopathy. Supple, full range of motion without nuchal rigidity, or vertebral point tenderness. No Meningismus. Chest/axilla: Normal chest wall appearance and motion. Nontender with no deformity. No lesions are appreciated. Cardiovascular: Regular rate and rhythm with a normal S1 and S2. No gallops, murmurs, or rubs. Normal PMI, no JVD. No pulse deficits. 18:32 Respiratory: the patient does not display signs of respiratory distress, Respirations: normal, Breath sounds: rales, that are mild, are scattered, are located in both bases. 18:32 Abdomen/GI: Inspection: obese Bowel sounds: active, diminished, in all quadrants, Palpation: soft, nontender, in all quadrants, The skin has multiple ecchymotic areas to his abdomen. Vital Signs: 07:37 BP 136 / 69; Pulse 102; Resp 16; Temp 98; Pulse Ox 100% on R/A; Pain 5/10; hb 08:30 BP 128 / 88; Pulse 100; Resp 15; Pulse Ox 100% on R/A; hb 09:45 BP 112 / 91; Pulse 98; Resp 15; Pulse Ox 100% on R/A; hb 10:45 BP 110 / 71; Pulse 98; Resp 17; Pulse Ox 100% on R/A; hb 11:45 BP 116 / 68; Pulse 88; Resp 15; Pulse Ox 100% on R/A; hb 13:45 BP 122 / 70; Pulse 87; Resp 16; Pulse Ox 100% on R/A; hb 14:45 BP 118 / 72; Pulse 86; Resp 17; Pulse Ox 100% on R/A; hb Procedures: 16:05 Central Line: the site was prepped with Betadine, in sterile fashion, a triple lumen snw catheter was inserted, in the left femoral vein, in 3 attempts. placement was verified, by blood return, the site was dressed with Tegaderm, using sterile technique, the patient tolerated the procedure, well. MDM: 18:32 Data reviewed: vital signs, nurses notes, lab test result(s), EKG, radiologic studies. kdr Counseling: I had a detailed discussion with the patient and/or guardian regarding: the historical points, exam findings, and any diagnostic results supporting the discharge/admit diagnosis, the presence of at least one elevated blood pressure reading (>120/80) during this emergency department visit, lab results, radiology results, the need for further work-up and treatment in the hospital. Physician consultation: Jabari Choudhury MD and will see patient in ED, immediately, shortly. 18:38 Patient medically screened. kdr 08 07:54 Order name: Basic Metabolic Panel; Complete Time: 14:29 kdr 08 07:54 Order name: CBC with Diff; Complete Time: 10:21 kdr 08 07:54 Order name: Ckmb; Complete Time: 14:29 kdr 08/ 07:54 Order name: CPK; Complete Time: 14:29 kdr 08 07:54 Order name: LFT's; Complete Time: 14:29 kdr 08 07:54 Order name: Magnesium; Complete Time: 14:29 kdr 08/ 07:54 Order name: NT PRO-BNP; Complete Time: 14:29 kdr 08/ 07:54 Order name: PT-INR; Complete Time: 14:29 kdr 08/ 07:54 Order name: Ptt, Activated; Complete Time: 14:29 kdr 08/ 07:54 Order name: Troponin (emerg Dept Use Only); Complete Time: 10:21 kdr 08/ 07:54 Order name: Blood Culture Adult (2) kdr 08 07:54 Order name: Urine Culture kdr 09/15 10:23 Order name: Urine Dipstick--Ancillary (enter results); Complete Time: 14:29 eb 08/06 10:40 Order name: Basic Metabolic Panel EDMS 08 07:54 Order name: XRAY Chest (1 view); Complete Time: 14:29 kdr 08/ 10:40 Order name: Basic Metabolic Panel EDMS 08/ 10:40 Order name: CBC with Automated Diff EDMS 09/15 10:40 Order name: CBC with Automated Diff EDMS 09/15 10:40 Order name: NT PRO-BNP EDMS 09/15 10:40 Order name: NT PRO-BNP EDMS 09/15 10:40 Order name: Troponin I EDMS / 10:40 Order name: Troponin I; Complete Time: 18:38 EDMS 08/ 10:40 Order name: Troponin I; Complete Time: 18:38 EDMS 08/ 10:41 Order name: US Extremity Venous W Compression Markell kdr 08 10:57 Order name: Lactate; Complete Time: 18:38 kdr 09/15 10:57 Order name: Procalcitonin; Complete Time: 18:38 kdr 09/15 10:57 Order name: ESR; Complete Time: 18:38 kdr / 12:34 Order name: US; Complete Time: 18:38 EDMS / 12:47 Order name: US; Complete Time: 14:29 EDMS 09/15 07:54 Order name: EKG; Complete Time: 07:55 kdr 08 07:54 Order name: Cardiac monitoring; Complete Time: 08:02 kdr 08 07:54 Order name: EKG - Nurse/Tech; Complete Time: 08:03 kdr 09/15 07:54 Order name: IV Saline Lock; Complete Time: 08:03 kdr 09/15 07:54 Order name: Labs collected and sent; Complete Time: 08:03 kdr 09/15 07:54 Order name: O2 Per Protocol; Complete Time: 08:03 kdr 09/15 07:54 Order name: O2 Sat Monitoring; Complete Time: 08:03 kdr 09/15 10:40 Order name: Low Sodium EDMS Administered Medications: 10:48 Drug: LevaQUIN 500 mg Volume: 100 ml; Route: IVPB; Infused Over: 60 mins; Site: right hb antecubital; Disposition: 18:30 Co-signature as Attending Physician, Houston Finn MD I agree with the assessment and kdr plan of care. Disposition: 09/15/17 12:41 Hospitalization ordered by Tamara Dan for Inpatient Admission. Preliminary diagnosis is renal failure. - Bed requested for Telemetry/MedSurg (Inpatient). - Status is Inpatient Admission. sg - Condition is Stable. UTI on Admission? No Signatures: Dispatcher [employer] EDMS Leandro Novoa, RN RN sg Houston Finn MD MD kdr Therrien, Shelly, SOLDERING TECHNICIAN-C SOLDERING TECHNICIAN-Csnw Dinh Qureshi RN RN la1 Michelle Barry RN RN Jessica Jenkins Corrections: (The following items were deleted from the chart) 15:59 12:41 Hospitalization Ordered by Tamara Dan MD for Inpatient Admission. Preliminary eb diagnosis is renal failure. Bed requested for Telemetry/MedSurg (Inpatient). Status is Inpatient Admission. Condition is Stable. UTI on Admission? No. la1 16:58 15:59 09/15/2017 12:41 Hospitalization Ordered by Tamara Dan MD for Inpatient sg Admission. Preliminary diagnosis is renal failure. Bed requested for Telemetry/MedSurg (Inpatient). Status is Inpatient Admission. Condition is Stable. UTI on Admission? No. eb
[2017-09-15] MEDS: FUROSEMIDE 20 MG/ 2ML VIAL IV SCH (18:55)
[2017-09-15] MEDS: ENOXAPARIN 30 MG/0.3 ML SQ SCH (18:55)
[2017-09-15 20:32] VITALS: BMI 28.9
[2017-09-15] MEDS ORDERED: NA CHLORIDE 0.9% 1,000 ML IV SCH (22:00)
--- NOTE | 2017-09-16 01:53 | CON ---
Date of Consultation: 09/15/2017 Chief Complaint: Abnormal kidney function test, elevated BUN and creatinine, acute kidney injury, ascites. History Of Present Illness: I was asked by Dr. Choudhury today to see the patient for abnormal kidney function test and ascites. Lab work done in the emergency room reveals elevated azotemia, BUN 47, creatinine 2.20. Electrolytes as follows; sodium 137, potassium 4.1, chloride 106, CO2 23, glucose 177, calcium 7.7. The patient has history of chronic kidney disease, baseline creatinine level ranging from 1.1 to 1.3. The patient cannot provide review of systems. He is awake, alert, although he is lethargic. He underwent central line placement in the emergency room today. The patient is admitted from the alf. He was lethargic and was complaining of some weakness. He developed peripheral edema and bruises in the upper extremities. He was found to have hypotension and was sent to the emergency room. He had decreased urine output today. Baseline GFR is 50. The patient was found to have elevated creatinine and renal function test declined. The patient was on multiple medications including spironolactone, allopurinol , furosemide, carvedilol. Review of Systems: Unobtainable. The patient is lethargic, cannot answer questions. Past Medical History: Coronary artery disease, hypertension, diabetes mellitus , chronic kidney disease stage 3, baseline creatinine 1.1-1.3, hyperlipidemia, diabetic kidney disease, diabetic neuropathy, gout, osteoarthritis, pacemaker, appendectomy, cardiac stents. Family History: Lung cancer in his father. Mother had hypertension and kidney disease. Sister heart disease. Social History: Negative for tobacco, alcohol, or illicit drugs. Physical Examination: General: The patient is lethargic. Eyes: Anicteric sclerae. EOMI. Ears, Nose, Mouth and Throat: Oral mucosa moist. No pallor. Neck: Supple. No bruits. Lungs: Clear to auscultation bilaterally. Heart: S1, S2. No pericardial friction or rub. Abdomen: Distended. There is ascites present. Bowel sounds diminished. Musculoskeletal: No muscle aches. No tenderness. Neurologic: Moving extremities. There is some tremor. Skin: Bruises in the upper extremities. No cellulitis. Psychiatric: Lethargic. Laboratory Data: PTT 27.7. INR 2.33. PTT 30.9. WBC 15.6, hemoglobin 12.2, hematocrit 36.4. Sodium 137, potassium 4.1, BUN 47, creatinine 2.20, glucose 177, magnesium 2.2, bilirubin 0.5. Impression And Plan: 1. Acute on chronic kidney injury. The patient is to have a Ramirez catheter to rule out urinary retention. The patient developed prerenal azotemia with hypotension. The patient may require IV albumin and midodrine for blood pressure support. 2. Chronic kidney disease due to diabetes mellitus. Monitor proteinuria. 3. Urinary tract infection, possible urinary tract infection. Plan is to screen for bacteriuria. The patient developed urinary obstruction. The patient will have a Ramirez catheter. 4. Congestive heart failure. The patient may be a candidate for Lasix. Spironolactone is currently on hold because of risk of hyperkalemia. Monitor urine output and blood pressure. Continue midodrine advanced diuretic for volemia control. 5. Ascites. The patient may need paracentesis to rule out spontaneous bacterial peritonitis. GUADALUPE/VERO Voice ID: [id number] Report ID: [id number] RUPA
[2017-09-16 02:31] LABS: Uric Acid 6.9 mg/dL (3.5-7.2)
[2017-09-16] MEDS: PANTOPRAZOLE 40MG TABLET PO SCH (05:30)
[2017-09-16 05:56] LABS: Absolute Lymphocytes (CBC) 1.6 K/uL (0.7-4.9); Absolute Monocytes 0.9 K/uL (0.1-1.3); Absolute Neutrophil 7.6 K/uL (1.8-8.0); Basophils % 0.5 % (0-1.3); Eosinophils % 0.1 % (0-4.4); Hematocrit 25.7 % (39.6-49.0); Lymphocytes % 15.7 % (15.3-44.8); MCH 31.3 pg (27.0-35.0); MCV 91.2 fL (80-100); MPV 8.9 fL (7.6-11.3); RBC Red Blood Cell Count 2.81 M/uL (4.33-5.43)
--- NOTE | 2017-09-16 06:53 | EKG ---
Test Date: 2017-09-15 Test Time: 07:46:11 Correctional Treatment Specialist: BRUCE MEASUREMENT RESULTS: Intervals: Rate: 100 SC: 162 QRSD: 102 QT: 394 QTc: 508 [place]: P: 4 SC: 162 QRS: 8 T: 62 INTERPRETIVE STATEMENTS: Sinus rhythm with occasional premature ventricular complexes Low voltage QRS Inferior infarct, age undetermined Prolonged QT Right bundle branch block Abnormal ECG Compared to ECG 08/06/2017 20:33:35 Ventricular premature complex(es) now present Low QRS voltage now present Sinus tachycardia no longer present Myocardial infarct finding still present Electronically Signed On 09-16-17 06:52:37 CDT by Carlos Manuel Manrique
[2017-09-16] MEDS: FUROSEMIDE 20 MG/ 2ML VIAL IV SCH ×2 (09:19→21:39)
[2017-09-16] MEDS: MIDODRINE HCL 5 MG TABLET PO SCH ×3 (09:20→20:01)
--- NOTE | 2017-09-16 10:10 | P.PN ---
Subjective Date of Service: 09/16/17 Primary Care Provider: Kei Chief Complaint: acute on chronic renal failure Subjective: No new changes Review of Systems General: Malaise Cardiovascular: Edema (of the upper extremities) Physical Examination - Vital Signs Temperature: 97.9 F Blood Pressure: 113/55 Pulse: 88 Respirations: 18 Pulse Ox (%): 97 - Physical Exam General: Alert, In no apparent distress HEENT: Atraumatic, PERRLA, EOMI Neck: Supple, JVD not distended Respiratory: Clear to auscultation bilaterally, Normal air movement Cardiovascular: Regular rate/rhythm, Normal S1 S2, Edema (of the upper extremities with bruising) Gastrointestinal: Normal bowel sounds, No tenderness Musculoskeletal: Other (bruising) Integumentary: No rashes Neurological: Normal speech, Normal tone, Normal affect Lymphatics: No axilla or inguinal lymphadenopathy Assessment & Plan - Problems (Diagnosis) (1) Acute on chronic kidney failure Onset Date: 08/07/17 Current Visit: No Status: Acute Plan: He is not diuresising well. Will need to see about the negron is functioning. I have consulted Dr. Dan. Will try to contact him Qualifiers: Acute renal failure type: unspecified Chronic kidney disease stage: stage 4 (severe) Qualified Code(s): N17.9 - Acute kidney failure, unspecified; N18.4 - Chronic kidney disease, stage 4 (severe) (2) Diabetes 1.5, managed as type 1 Current Visit: Yes Status: Acute Plan: Will put him on sliding scale insulin (3) Urinary (tract) obstruction Current Visit: Yes Status: Acute Plan: Consult to Dr. Dan who initially placed the negron (4) CHF (congestive heart failure) Current Visit: No Status: Chronic Plan: Will try to improve kidney function and diuresis the patient appropriated.Postive dullness on the dependent portions. Qualifiers: Heart failure type: systolic Discharge Plan: Correction Plan to discharge in: Greater than 2 days - Code Status/Comfort Care Code Status Assessed: No Code Status: Full Code Physician Review: Patient Assessed, Agree with Above Assessment and Plan Critical Care: No Time Spent Managing Pts Care (In Minutes): 25
[2017-09-16] MEDS: Levofloxacin500mg IV 500 MG/100 ML BAG IV SCH (11:57)
[2017-09-16 13:28] LABS: Urine Protein/Creatinine Ratio 0.76 ratio (<0.15)
--- NOTE | 2017-09-16 14:15 | PN ---
Date of Progress Note: 09/16/2017 Subjective: The patient still weak, but awake, oriented. Physical Examination: Vital Signs: Blood pressure 113/55, pulse of 88, afebrile. The patient had urine output of 200 over the night, but in the bag, he has almost 400 from the morning. Chest: Faint crackles on the base. Heart: S1, S2. Regular. Abdomen: Soft, nontender. Extremities: Plus edema. The patient had multiple bruises and subcutaneous bleed on the extremity w ith purpura on the abdomen and the chest extended to the back. The patient recently admitted with re ctal bleed. A colonoscopy was not done. The patient was sent with allopurinol. Laboratory Data: WBC 10.1, H and H 8.8/25.7, platelets 241. Sodium 137, potassium 4, bicarb 26, BUN 56, creatinine 2.2, calcium 7.5. BNP of 2588. INR 2.3. Urinalysis, +2 protein. Current Medications: The patient on include: 1.Levaquin 500 daily. 2.Midodrine. 3.Lovenox. 4.Lasix 20 b.i.d. 5.Pantoprazole. 6.Zofran. Assessment And Plan: 1.Acute kidney injury on chronic kidney disease with the presence of the purpura, Henoch-Schonlein n eed to be ruled out. I am going to go ahead and send for full serology. We will send for SPEP and U PEP to rule out any light chain disease given the anemia that the patient has. We will monitor. I a gree with current Lasix dose, holding the metformin, and we will follow up. 2.Anasarca, possible secondary to renal failure as above. Continue diuresis. We will send for TSH and protein creatinine. 3.Purpura with bleeding under the skin as above, possible Henoch-Schonlein. We will send for SPEP a nd we will follow up. INR therapeutic. No thrombocytopenia. 4.Hypertension, currently hypotension. We will utilize the blood pressure for more diuresis. I am going to go ahead and start the patient on albumin to mobilize the fluid from third space and we will follow up. ARMIN/VERO Voice ID: [id number] Report ID: [id number]
[2017-09-16] MEDS: ENOXAPARIN 30 MG/0.3 ML SQ SCH (17:29)
--- NOTE | 2017-09-16 18:45 | CON ---
History Of Present Illness: Mr. Valenzuela is a 76-year-old gentleman, who had multiple medical problems including hypertension, diabetes and neuropathy, chronic renal disease, CHF, renal failure, urinary retention. He has a chronic Ramirez catheter. He lives at [facility]. He is a poor surgical candidate for any type of operations. He is now in the hospital for renal failure and poor urine output, mostly prerenal I believe. His bladder is empty. He has been scanned with renal ultrasound, bladder ultrasound and no hydronephrosis was seen. No bladder distention. He was also hypertensive on arrival. Apparently, his baseline GFR is in the 50s. The patient does have a UTI, which is common with patients with indwelling Ramirez catheters. He has growing gram-negative rods, 100,000. Allergies: CODEINE CAUSES RASH. HYDROCODONE CAUSES RASH AND HIVES. MORPHINE CAUSES ITCHING, HIVES AND RASH. OXYCODONE CAUSES ITCHING, HIVES AND RASH. PENICILLIN CAUSES ITCHING, HIVES AND RASH. Home Medication: Carvedilol, Lasix, gabapentin, Raglan, Aldactone, zyloprim, allopurinol, docusate, insulin, milk of magnesia, omeprazole, Tylenol, acetic acid flushes to the bladder daily, ___, ascorbic acid, Cipro, collagenase, insulin, lidocaine, metformin, multivitamin, zinc sulfate. Past Medical History: Coronary artery disease, diabetes, hypertension, chronic pain, hyperlipidemia, diabetic neuropathy, gout, osteoarthritis, pacemaker, pain pump, shoulder replacement, bilateral left knee replacement, appendectomy, cardiac stents, pacemaker, Ramirez catheters. He has had a TURP in the past. Psychosocial: It lives in shelter. He is , 3 children. Retired. Family History: Father had lung disease, cancer. Mother, heart disease, hypertension, kidney disease. Sister, heart disease. Social History: No alcohol use. No drug use. No caffeine use. Review of Systems: Respiratory: Shortness of breath. Cardiovascular: Some edema. Gastrointestinal: Some distention. No rebound or tenderness. Laboratory Data: Reviewed, shows white count was elevated 15.6 on arrival, now 10.1, H and H is 8.8 and 25 down from 12 and 36 on arrival due to dehydration or possible bleed. Coags showed PT slightly elevated at 27.1, INR is a 2.33. Chemistry shows sodium 137, potassium 4.0, chloride 103, carbon dioxide 26, BUN 26, creatinine 2.2, GFR 29, glucose 220. Urine shows 3+ blood, nitrite negative , leukocyte esterase. Urine culture growing gram-negative rods as mentioned. Assessment: This patient has no postobstructive signs of renal failure. He has no hydronephrosis. He has no bladder distention. Ramirez is draining clear urine. He most likely has prerenal or renal disease. He does have medical renal disease by ultrasound, so I will defer to Nephrology in treating those areas. Again, if culture is will positive, I am really sure he needs to be treated for this but only symptomatic. He patient has multiple medical problems , acute on chronic renal failure, diabetes, UTI, CHF, urinary retention, chronic Ramirez catheter. POOJA/VERO Voice ID: [id number] Report ID: [id number] RUPA
[2017-09-16] MEDS: ALBUMIN HUMAN 25% 100 ML IV SCH (19:55)
[2017-09-16] MEDS: JUVEN PACKET PO SCH (20:00)
[2017-09-17 05:15] LABS: RBC Red Blood Cell Count 3.53 M/uL (4.33-5.43)
[2017-09-17 05:26] LABS: Protime INR 1.84
[2017-09-17] MEDS: ONDANSETRON 4 MG/2 ML VIAL IV PRN (05:27)
[2017-09-17] MEDS: PANTOPRAZOLE 40MG TABLET PO SCH (05:34)
[2017-09-17 06:50] LABS: Rheumatoid Factor NEG (NEG)
[2017-09-17 07:21] LABS: Albumin 2.1 g/dL (3.4-5.0); Ferritin 200.8 ng/mL (26-388); Folic Acid, (Folate) 3.3 ng/mL (3.1-17.5); Phosphorus 4.1 mg/dL (2.5-4.9); Potassium 4.4 mmol/L (3.5-5.1); Thyroid Stimulating Hormone 0.52 uIU/mL (0.36-3.74)
[2017-09-17] MEDS ORDERED: MORPHINE 4 MG/ML SYR IV PRN (08:12)
[2017-09-17] MEDS: TRAMADOL HCL 50 MG TAB PO PRN ×2 (09:00→17:23)
[2017-09-17] MEDS: MIDODRINE HCL 5 MG TABLET PO SCH ×2 (09:00→20:47)
[2017-09-17] MEDS: JUVEN PACKET PO SCH ×2 (09:00→20:47)
[2017-09-17] MEDS: ALBUMIN HUMAN 25% 100 ML IV SCH ×2 (09:00→20:46)
[2017-09-17] MEDS: FUROSEMIDE 20 MG/ 2ML VIAL IV SCH ×2 (09:02→21:54)
[2017-09-17] MEDS ORDERED: SOD FERRIC GLUC COMPLX/SUCROSE 250 MG in NA CHLORIDE 0.9% 250 ML IV SCH (12:00)
[2017-09-17] MEDS: Levofloxacin500mg IV 500 MG/100 ML BAG IV SCH (12:13)
--- NOTE | 2017-09-17 13:26 | P.PN ---
Subjective Date of Service: 09/17/17 Primary Care Provider: Kei Chief Complaint: acute on chronic renal failure Subjective: Improving Review of Systems 10-point ROS is otherwise unremarkable General: Weakness Physical Examination - Vital Signs Temperature: 97.8 F Blood Pressure: 122/67 Pulse: 98 Respirations: 20 Pulse Ox (%): 100 - Physical Exam General: Alert, In no apparent distress HEENT: Atraumatic, PERRLA, EOMI Neck: Supple, JVD not distended Respiratory: Clear to auscultation bilaterally, Normal air movement Cardiovascular: Regular rate/rhythm, Normal S1 S2, Edema (has gone down from yesterday) Gastrointestinal: Normal bowel sounds, No tenderness Musculoskeletal: No tenderness Integumentary: No rashes Neurological: Normal speech, Normal tone, Normal affect Lymphatics: No axilla or inguinal lymphadenopathy Assessment & Plan - Problems (Diagnosis) (1) Acute on chronic kidney failure Onset Date: 08/07/17 Current Visit: No Status: Acute Plan: He is not diuresising well. Will need to see about the negron is functioning. I have consulted Dr. Dan. Will try to contact him Qualifiers: Acute renal failure type: unspecified Chronic kidney disease stage: stage 4 (severe) Qualified Code(s): N17.9 - Acute kidney failure, unspecified; N18.4 - Chronic kidney disease, stage 4 (severe) (2) Diabetes 1.5, managed as type 1 Onset Date: 09/17/17 Current Visit: Yes Status: Acute Plan: Will put him on sliding scale insulin (3) Urinary (tract) obstruction Onset Date: 09/17/17 Current Visit: Yes Status: Acute Plan: Consult to Dr. Dan who initially placed the negron (4) CHF (congestive heart failure) Onset Date: 09/17/17 Current Visit: Yes Status: Chronic Plan: Will try to improve kidney function and diuresis the patient appropriated.Postive dullness on the dependent portions. Qualifiers: Heart failure type: systolic Discharge Plan: Correction Plan to discharge in: Greater than 2 days - Code Status/Comfort Care Code Status Assessed: No Code Status: Full Code Physician Review: Patient Assessed, Agree with Above Assessment and Plan Critical Care: No Time Spent Managing Pts Care (In Minutes): 30
--- NOTE | 2017-09-17 15:34 | PN ---
Date of Progress Note: 09/17/2017 Subjective: The patient doing better, edema subsided. Physical Examination: Vital Signs: Blood pressure 105/71, pulse of 96, afebrile. The patient responds very well to diures is. Had urine output of 1200. Chest: Clear to auscultation. Heart: S1, S2. Systolic murmur. Abdomen: Soft, nontender. Extremities: Plus edema, more prominent on left side. Laboratory Data: WBC 10.1, H and H 8.8/25.7, and platelets 241. Sodium 134, potassium 4.4, bicarb 2 2, BUN 58, creatinine down to 2, GFR of 32, calcium 7.5, TSAT of 20, ferritin of 200, SPEP is still p ending. TSH 0.5, PTH of 77, protein creatinine of 0.7. Serology is still pending. Medications: Current medications the patient is on include: 1.Midodrine 5 mg t.i.d. 2.Levaquin 500 daily. 3.Lasix 20 b.i.d. 4.Zofran. 5.Morphine. 6.Tramadol. Assessment And Plan: 1.Acute kidney injury secondary to cardiorenal, still on the wet side. I am going to continue Lasix . We still working up for Henoch-Schonlein serology and workup still negative giving the improvement in the kidney function without initiating any immunosuppressive including the prednisone. The possi bility of Henoch-Schonlein make it lower and specially that no significant protein urea on the patien t, so I am going to continue current management with the diuresis and we will follow up. 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 2.Hypertension, currently blood pressure on the lower side. I will utilize blood pressure for more diuresis. 3.Anasarca, secondary to cardiorenal, proteinuria not significant. We will continue diuresis. We w ill follow up with the primary. 4.Purpura on the abdomen with subcutaneous hemorrhage on the upper extremity as above, still pending Henoch-Schonlein workup even that low possibility. 5.Iron deficiency anemia secondary to gastrointestinal bleed. I will start the patient on IV iron a nd we will follow up. ARMIN/VERO Voice ID: [id number] Report ID: [id number]
--- NOTE | 2017-09-17 15:40 | PN ---
Subjective: Stable. Objective: Vital Signs: 97.8 temperature, pulse 98, respirations 20, BP 122/67, sats 100% sats. Laboratory Data: The patient's urine culture grew Xanthomonas maltophilia that is sensitive only to Bactrim and resistant to Levaquin, ceftazidime and Timentin. Assessment: Xanthomonas urinary tract infection. The patient is currently on Levaquin. His white c ount is down to normal. It is difficult to say if this is urinary tract infection that causes confus ion or not since the catheter is normally contaminated. Does have a history of acute on chronic alexandro l disease and acute on chronic renal failure, diabetes, and congestive heart failure. Continue manag ement. POOJA/MODL Voice ID: [id number] Report ID: [id number]
[2017-09-17] MEDS: ENOXAPARIN 30 MG/0.3 ML SQ SCH (17:24)
--- NOTE | 2017-09-17 17:47 | ECHO ---
HEIGHT: 5 ft 9 in WEIGHT: 193 lb 11.2 oz DATE OF STUDY: 09/17/[address]: Lew Green MD 2-DIMENSIONAL: YES M.MODE: YES DOPPLER: YES COLOR FLOW: YES TDS: YES PORTABLE: DEFINITY: BUBBLE STUDY: DIAGNOSIS: CONGESTIVE HEART FAILURE CARDIAC HISTORY: CATHERIZATION: SURGERY: PROSTHETIC VALVE: PACEMAKER: MEASUREMENTS (cm) DIASTOLIC (NORMALS) SYSTOLIC (NORMALS) IVSd 1.3 (0.6-1.2) LA Diam 4.1 (1.9-4.0) LVEF 41% LVIDd 4.6 (3.5-5.7) LVIDs 3.7 (2.0-3.5) %FS 20% LVPWd 1.2 (0.6-1.2) Ao Diam 4.1 (2.0-3.7) 2 DIMENSIONAL ASSESSMENT: RIGHT ATRIUM: NORMAL LEFT ATRIUM: DILATED RIGHT VENTRICLE: NORMAL LEFT VENTRICLE: NORMAL TRICUSPID VALVE: NORMAL MITRAL VALVE: MITRAL ANNULAR CALCIFICATION, MILD PULMONIC VALVE: NORMAL AORTIC VALVE: SCLEROSIS PERICARDIAL EFFUSION: NONE AORTIC ROOT: NORMAL LEFT VENTRICULAR WALL MOTION: GLOBAL HYPOKINESIS DOPPLER/COLOR FLOW: IMPAIRED LEFT VENTRICULAR RELAXATION. NO AORTIC STENOSIS OR AORTIC REGURGITATION. COMMENTS: MILDLY DEPRESSED LEFT VENTRICULAR EJECTION FRACTION. DILATED LEFT ATRIUM. MITRAL ANNULAR CALCIFICATION. AORTIC SCLEROSIS WITH NO AORTIC STENOSIS OR AORTIC REGURGITATION. IMPAIRED LEFT VENTRICULAR RELAXATION. TECHNICALLY DIFFICULT STUDY. TECHNOLOGIST: RIZWAN NAZARIO
[2017-09-17] MEDS ORDERED: GLUCAGON 1 MG/VIAL IM PRN (20:42)
[2017-09-17] MEDS ORDERED: D50W 25 GM/50 ML SYRINGE IV PRN (20:42)
[2017-09-17] MEDS: INSULIN -REGULAR HUMAN 50 UNIT/0.5 ML ML SQ SCH (21:54)
[2017-09-18 05:14] LABS: Albumin 2.5 g/dL (3.4-5.0); Phosphorus 2.8 mg/dL (2.5-4.9); Potassium 3.7 mmol/L (3.5-5.1)
[2017-09-18] MEDS: TRAMADOL HCL 50 MG TAB PO PRN ×2 (05:39→14:22)
[2017-09-18] MEDS: PANTOPRAZOLE 40MG TABLET PO SCH (05:39)
[2017-09-18] MEDS: ACETAMINOPHEN 500 MG TAB PO PRN ×2 (08:20→14:21)
[2017-09-18] MEDS: INSULIN -REGULAR HUMAN 50 UNIT/0.5 ML ML SQ SCH ×4 (08:44→21:03)
[2017-09-18] MEDS: MIDODRINE HCL 5 MG TABLET PO SCH ×2 (08:45→21:03)
[2017-09-18] MEDS: ALBUMIN HUMAN 25% 100 ML IV SCH (09:34)
[2017-09-18] MEDS: MEDIHONEY 44 ML TOPICAL TUBE TOP SCH (10:15)
[2017-09-18] MEDS: FUROSEMIDE 20 MG/ 2ML VIAL IV SCH (10:16)
--- NOTE | 2017-09-18 11:05 | P.PN ---
Subjective Date of Service: 09/18/17 Primary Care Provider: Kei Chief Complaint: acute on chronic renal failure Subjective: Improving (Had approx 1000cc of diuresis last night) Review of Systems 10-point ROS is otherwise unremarkable General: Weakness, Malaise Physical Examination - Vital Signs Temperature: 97 F Blood Pressure: 110/58 Pulse: 85 Respirations: 20 Pulse Ox (%): 99 - Physical Exam General: Alert, In no apparent distress HEENT: Atraumatic, PERRLA, EOMI Neck: Supple, JVD not distended Respiratory: Clear to auscultation bilaterally, Normal air movement Cardiovascular: Regular rate/rhythm, Normal S1 S2 Gastrointestinal: Normal bowel sounds, No tenderness Musculoskeletal: No tenderness Integumentary: No rashes, Pressure ulcer Neurological: Normal speech, Normal tone, Normal affect Lymphatics: No axilla or inguinal lymphadenopathy - Studies Microbiology Data (last 24 hrs): 09/15/17 10:10 Catheterized Urine [place] Count - Final >100,000 CFU/ML. 09/15/17 10:10 Catheterized Urine - Final Xanthomonas Maltophilia Staphylococcus Haemolyticus Assessment & Plan - Problems (Diagnosis) (1) Acute on chronic kidney failure Onset Date: 08/07/17 Current Visit: No Status: Acute Plan: Improved diuresis. Will await the work up for henoch andre purpuria, continue steroids and diuresis Qualifiers: Acute renal failure type: unspecified Chronic kidney disease stage: stage 4 (severe) Qualified Code(s): N17.9 - Acute kidney failure, unspecified; N18.4 - Chronic kidney disease, stage 4 (severe) (2) Diabetes 1.5, managed as type 1 Onset Date: 09/17/17 Current Visit: Yes Status: Acute Plan: Will put him on sliding scale insulin (3) Urinary (tract) obstruction Onset Date: 09/17/17 Current Visit: Yes Status: Acute Plan: Consult to Dr. Dan who initially placed the negron (4) CHF (congestive heart failure) Onset Date: 09/17/17 Current Visit: Yes Status: Chronic Plan: Will try to improve kidney function and diuresis the patient appropriated.Postive dullness on the dependent portions. Qualifiers: Heart failure type: systolic (5) Pressure ulcer Current Visit: Yes Status: Acute Plan: Will continue wound care. We can follow him up in the wound care center on discharge. Qualifiers: Pressure injury location: contiguous region involving back and buttock Pressure injury stage: stage 2 Laterality: unspecified laterality Qualified Code(s): L89.42 - Pressure ulcer of contiguous site of back, buttock and hip, stage 2 Physician Review: Patient Assessed, Agree with Above Assessment and Plan Critical Care: No Time Spent Managing Pts Care (In Minutes): 25
[2017-09-18] MEDS: Levofloxacin500mg IV 500 MG/100 ML BAG IV SCH (11:39)
--- NOTE | 2017-09-18 14:19 | PN ---
Subjective: The patient is resting comfortable, sleeping. Acute on chronic renal failure. Objective: Urine culture grew Xanthomonas maltophilia, most likely contaminant. He is doing well fr om this point of view. Urine is clear. Assessment/plan: Diabetes has been managed, history of CHF, pressure ulcers. Continue management. The patient can go home whenever medical team decides so. He is cleared from my point of view to the home. Continue Ramirez catheter in place. PB/MODL Voice ID: [id number] Report ID: [id number]
--- NOTE | 2017-09-18 14:56 | PN ---
Date of Progress Note: 09/18/2017 Subjective: The patient doing well. No nausea. No vomiting. Feeling weak. Physical Examination: Vital Signs: Blood pressure 108/60, pulse of 57, afebrile. The patient had good urine output yester day of 1500. Chest: Clear to auscultation. Heart: S1, S2. Regular. Abdomen: Soft, nontender. Multiple purpura. Extremities: Swelling has been subsided significantly. More swelling only on the upper extremity. Neurologic: Alert. Nonfocal. Laboratory Data: WBC 10.1, H and H 8.8/25.7, platelets 241. Sodium 135, potassium 3.7, bicarb 25, B UN 66, creatinine 2.2, calcium 7.8, phosphorous 2.8, albumin 2.1. SPEP is still pending. PTH of 77, protein creatinine 0.7. Serology is still pending. Medications: Current medications the patient on its include: 1.IV iron. 2.Midodrine 5 mg b.i.d. 3.Lovenox. 4.Lasix 20 b.i.d. 5.Zofran. 6.Glucagon. 7.Tramadol. 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 I am going to go ahead and repeat UA for the patient to confirm the hematuria. We will decrease the Lasix to once a day and we will continue to monitor the patient. 2.Hypertension. He was hypotensive. Yesterday, we decreased the midodrine to twice a day. Blood p ressure maintained good. Tolerated the diuresis. Currently look to me stable. I am going to contin ue with current dose of midodrine. We will decrease the Lasix to once a day and we will follow up. 3.Anasarca secondary to renal failure, resolved. Decreased Lasix. 4.Iron deficiency anemia. Continue IV iron. 5.Obstructive uropathy as by Urology. 6.Congestive heart failure, diastolic dysfunction as by the echocardiogram, currently started to be more euvolemic. I am going to decrease the Lasix and we will follow up with primary. ARMIN/VERO Voice ID: [id number] Report ID: [id number]
[2017-09-18] MEDS: SMZ./TMP. 800/160 MG TABLET PO SCH ×2 (15:28→21:03)
[2017-09-18] MEDS: DOXYCYCLINE 100 MG in NA CHLORIDE 0.9% 100 ML IVPB SCH ×2 (15:29→21:04)
[2017-09-18] MEDS: JUVEN PACKET PO SCH ×2 (15:29→21:03)
[2017-09-18] MEDS: ENOXAPARIN 30 MG/0.3 ML SQ SCH (18:17)
[2017-09-18 18:42] LABS: Urine Appearance CLEAR; Urine Bilirubin NEGATIVE (NEG); Urine Blood 2+ (NEG); Urine Color YELLOW; Urine Glucose NEGATIVE (NEG); Urine Protein TRACE (NEG); Urine Specific Gravity 1.015 (1.005-1.030); Urine pH 5.5 (5.0-7.0)
[2017-09-18 18:59] LABS: Urine Microscopic Reflex ORDER UMIC
[2017-09-18 19:08] LABS: Urine Bacteria 20-50 /HPF (NONE SEEN); Urine Culture Reflex Order REFLEXED
[2017-09-19] MEDS: PANTOPRAZOLE 40MG TABLET PO SCH (05:32)
[2017-09-19 05:44] LABS: Albumin 2.3 g/dL (3.4-5.0); Phosphorus 2.9 mg/dL (2.5-4.9); Potassium 3.8 mmol/L (3.5-5.1)
[2017-09-19] MEDS: INSULIN -REGULAR HUMAN 50 UNIT/0.5 ML ML SQ SCH ×4 (08:01→21:30)
[2017-09-19] MEDS: MIDODRINE HCL 5 MG TABLET PO SCH (08:04)
[2017-09-19] MEDS: SMZ./TMP. 800/160 MG TABLET PO SCH ×2 (08:04→21:30)
[2017-09-19] MEDS: JUVEN PACKET PO SCH ×2 (08:06→21:30)
[2017-09-19] MEDS: DOXYCYCLINE 100 MG in NA CHLORIDE 0.9% 100 ML IVPB SCH ×2 (08:47→21:31)
[2017-09-19] MEDS: MEDIHONEY 44 ML TOPICAL TUBE TOP SCH (08:47)
[2017-09-19] MEDS ORDERED: FUROSEMIDE 20 MG/ 2ML VIAL IV SCH (09:00)
[2017-09-19] MEDS ORDERED: PROMETHAZINE 25 MG/ML VIAL IV ONE (11:34)
[2017-09-19 12:08] LABS: HIV 1/2 Antibody Diff Not indicated.; HIV AG/AB 4TH GEN Non-reactive (Non-reactive)
[2017-09-19] MEDS ORDERED: CARVEDILOL 3.125 MG TAB PO ONE (12:36)
[2017-09-19] MEDS: ONDANSETRON 4 MG/2 ML VIAL IV PRN (12:45)
--- NOTE | 2017-09-19 13:38 | EKG ---
Test Date: 2017-09-19 Test Time: 12:36:21 Foreclosure Specialist: BRUCE MEASUREMENT RESULTS: Intervals: Rate: 178 IA: 112 QRSD: 96 QT: 256 QTc: 440 [place]: P: IA: 112 QRS: 41 T: 150 INTERPRETIVE STATEMENTS: Atrial fibrillation with rapid ventricular response Inferior infarct, age undetermined Cannot rule out Anterior infarct, age undetermined Right bundle branch block Abnormal ECG Compared to ECG 09/15/2017 07:46:11 Sinus rhythm no longer present Myocardial infarct finding still present Electronically Signed On 09-19-17 13:38:02 CDT by Carlos Manuel Manrique
[2017-09-19] MEDS: AMIODARONE HCL 200 MG TAB PO SCH ×2 (13:58→21:29)
[2017-09-19] MEDS: TRAMADOL HCL 50 MG TAB PO PRN (14:09)
[2017-09-19] MEDS: ACETAMINOPHEN 500 MG TAB PO PRN (14:09)
--- NOTE | 2017-09-19 14:55 | P.PN ---
Date of Service: 09/19/17 Patient went into atrial fib a little before noon. He was started on carvedilol. Seen by Dr. Manrique. Had some improvement in his rate. However not back to baseline. Considering his kidney function, atrial fib, bedsores and over all status, family was called. The patient has a dnr. Telling the family that he wishes to . Tired of being in pain. Have discussed with both daughters. They want hospice for they're father. Will reconsult IP, hospice
--- NOTE | 2017-09-19 15:24 | PN ---
Subjective: The patient is lying in bed, awake. Wondering when he is going to home. Objective: Vital Signs: Afebrile. Stable. Stable otherwise. : Urine is clear, draining well. Continue management. Creatinine elevated 2.2. Assessment And Plan: Acute kidney injury, history of retention, urinary tract infection. Has Ramirez in due to obstruction from the prostate. We will continue Ramirez catheter drainage. Poor surgical ca ndidate. Continue medical management. POOJA/VERO Voice ID: [id number] Report ID: [id number]
--- NOTE | 2017-09-19 15:39 | CON ---
History Of Present Illness: Mr. Valenzuela went into atrial flutter today. I am asked to see him. Mr. Rogelio tavarez has been in our hospital for several days. He got here early on the . Today is the 10th. Auysh hale has had gradual progressive deterioration. He has a history of coronary heart disease with a stent . He has a history of cardiomyopathy and most recent echocardiogram revealed ejection fraction of 41 % and there had been no significant valvular lesions. He was in sinus rhythm until a short time ago. He came to the hospital with a complaint of decreased urine output, swelling. He had been living i n a care home. He is now found to have a lot of bruising, very low platelet count, failure to thr tara, hypotension. Physical Examination: General: The patient is obtunded. He is breathing in a shallow pattern. He has been able to take p ills at least up until this morning. He does not seem to be in any distress or pain. Lungs: Do reveal crackles in the bases. Heart: Reveals a regular rate and rhythm going about 140. Blood pressure has been 116/68, although when he went into flutter, it has dropped some. The nurses are rechecking it soon. Skin: shows multiple purpuric lesions other than hugo bruises. Laboratory Data: His platelet count is 241,000, hemoglobin 8.8, down from 12, although the 8.8 was o n the , this is the 10th, CBC has not been Re checked. I assume that is intentional. Today his c reatinine is 2.1. It is a little higher than it was on admission. Overall, Mr. Valenzuela's status seems to be that he is critically ill, but do not resuscitate. I think rogelio hale could try to give him some oral amiodarone, but trying to shock his heart would seem to be against his and the family's wishes. I won't recommend we do that. there seems to be not much that we can d o to make any improvement in Mr. Valenzuela. We will make sure we focus on relieving any discomfort he krishnamurthy s. He does not seem to be in pain or emotional or physical distress at this time. TERE/VERO Voice ID: [id number] Report ID: [id number]
[2017-09-19] MEDS: ENOXAPARIN 30 MG/0.3 ML SQ SCH (17:09)
[2017-09-19] MEDS: CARVEDILOL 3.125 MG TAB PO SCH (17:50)
[2017-09-19 19:46] LABS: Hepatitis C Virus RNA (PCR)log <1.18 log IU/mL
[2017-09-19 20:06] LABS: Anti-Cardiolipin IgA Antibody <11 APL (<=11)
[2017-09-19 22:01] LABS: HBsAG Nonreactive (Nonreactive)
[2017-09-19] MEDS ORDERED: VANCOMYCIN/NS 1 gm 1 GM/250 ML BAG IVPB SCH (23:00)
--- NOTE | 2017-09-20 02:39 | PN ---
Date of Progress Note: 09/19/2017 Chief Complaint: Acute kidney injury on chronic kidney disease. Review of Systems: General: The patient is lethargic. He denies chest pain. Blood pressure is 108/60, heart rate is 60. Lungs: Clear to auscultation bilaterally. Heart: S1, S2. Abdomen: Soft and benign. Extremities: Peripheral edema mild. Blood Work: Hemoglobin 8.8, WBC 10.1, platelet count 241,000. INR 1.84, PT 21.8, APTT 31.7. Urinalysis showed 1+ leukocyte esterase, blood 3+, specific gravity 1.015, pH 5.5, wbcs 10-20, rbcs 10-20. Urine culture showed Staphylococcus haemolyticus and Stenotrophomonas maltophilia. Impression And Plan: Acute kidney injury, etiology likely prerenal azotemia, acute tubular necrosis, with nonoliguric urine output. Renal function is plateauing. Creatinine is 2.1 and BUN is 65. The patient developed accelerated chronic kidney disease. Serologic studies are pending to rule out any evidence of vasculitis. Hepatitis panel is pending and HIV panel is nonreactive. Impression And Plan: 1. The patient will need to continue antibiotics for urinary tract infection pending sensitivities. Recommend to consult Infectious Disease. The patient has multidrug-resistant infection. 2. Hypertension. Blood pressure in acceptable control. 3. Atrial fibrillation. Cardiology consultation was obtained. 4. Altered mental status. The patient is encephalopathic by several workups with primary team. i spent total 36 min including 26 min to coordinate care plan. ADELFO Voice ID: [id number] Report ID: [id number] MTDD
[2017-09-20] MEDS: PANTOPRAZOLE 40MG TABLET PO SCH (05:29)
[2017-09-20] MEDS: CARVEDILOL 3.125 MG TAB PO SCH ×2 (05:31→17:11)
[2017-09-20 06:18] LABS: Albumin 2.3 g/dL (3.4-5.0); Phosphorus 3.5 mg/dL (2.5-4.9); Potassium 4.6 mmol/L (3.5-5.1)
[2017-09-20] MEDS ORDERED: NA CHLORIDE 0.9% 1,000 ML IV SCH ×2 (07:00)
[2017-09-20 08:48] LABS: Scleroderma Antibody (Scl-70) <1.0 AI (<1.0)
[2017-09-20] MEDS: INSULIN -REGULAR HUMAN 50 UNIT/0.5 ML ML SQ SCH ×4 (08:58→22:33)
[2017-09-20] MEDS ORDERED: SCOPOLAMINE HYDROBROMIDE PATCH TD SCH (09:00)
[2017-09-20] MEDS: AMIODARONE HCL 200 MG TAB PO SCH ×2 (09:00→21:32)
[2017-09-20] MEDS: JUVEN PACKET PO SCH ×2 (09:02→21:32)
[2017-09-20] MEDS: MIDODRINE HCL 5 MG TABLET PO SCH ×3 (09:04→22:23)
[2017-09-20] MEDS: DOXYCYCLINE 100 MG in NA CHLORIDE 0.9% 100 ML IVPB SCH ×2 (09:08→22:23)
[2017-09-20] MEDS ORDERED: FUROSEMIDE 40 MG/4 ML VIAL IV ONE (09:28)
[2017-09-20] MEDS ORDERED: FENTANYL CITR 100 MCG/2 ML IV PRN (09:37)
--- NOTE | 2017-09-20 09:49 | P.PN ---
Subjective Date of Service: 09/20/17 Primary Care Provider: Kei Chief Complaint: acute on chronic renal failure Subjective: Worsening Review of Systems 10-point ROS is otherwise unremarkable General: Weakness, Malaise Respiratory: Shortness of Breath Physical Examination - Vital Signs Temperature: 97.3 F Blood Pressure: 78/53 Pulse: 101 Respirations: 38 Pulse Ox (%): 90 - Physical Exam General: Alert, Moderate distress HEENT: Atraumatic, PERRLA, EOMI Neck: Supple, JVD not distended Respiratory: Rhonchi/gurgles Cardiovascular: Regular rate/rhythm, Normal S1 S2 Gastrointestinal: Normal bowel sounds, No tenderness Musculoskeletal: No tenderness Integumentary: No rashes Neurological: Normal speech, Normal tone, Normal affect Lymphatics: No axilla or inguinal lymphadenopathy - Studies Microbiology Data (last 24 hrs): 09/15/17 09:09 Blood - Blood Aerobic Blood Culture - Final No growth in 5 days. 09/15/17 09:09 Blood - Blood Anaerobic Blood Culture - Final No growth in 5 days. Assessment & Plan - Problems (Diagnosis) (1) End of life care Current Visit: Yes Status: Acute Plan: Patient is worsening. Hypotensive, labored respiration. With gurgles as he cannot control his respiration. He has a worsening creatine. Patient is dnr. Family wants hospice. Will start fentanyl, scopolamine and mucomyst for comfort measures. Awaiting arrangement of hospice for the patient. We wish him and his family the best of luck (2) Acute on chronic kidney failure Onset Date: 08/07/17 Current Visit: No Status: Acute Plan: Improved diuresis. Will await the work up for henoch andre purpuria, continue steroids and diuresis Qualifiers: Acute renal failure type: unspecified Chronic kidney disease stage: stage 4 (severe) Qualified Code(s): N17.9 - Acute kidney failure, unspecified; N18.4 - Chronic kidney disease, stage 4 (severe) (3) Diabetes 1.5, managed as type 1 Onset Date: 09/17/17 Current Visit: Yes Status: Acute Plan: Will put him on sliding scale insulin (4) Urinary (tract) obstruction Onset Date: 09/17/17 Current Visit: Yes Status: Acute Plan: Consult to Dr. Dan who initially placed the negron (5) CHF (congestive heart failure) Onset Date: 09/17/17 Current Visit: Yes Status: Chronic Plan: Will try to improve kidney function and diuresis the patient appropriated.Postive dullness on the dependent portions. Qualifiers: Heart failure type: systolic (6) Pressure ulcer Current Visit: Yes Status: Acute Plan: Will continue wound care. We can follow him up in the wound care center on discharge. Qualifiers: Pressure injury location: contiguous region involving back and buttock Pressure injury stage: stage 2 Laterality: unspecified laterality Qualified Code(s): L89.42 - Pressure ulcer of contiguous site of back, buttock and hip, stage 2 Discharge Plan: Other Plan to discharge in: 24 Hours - Code Status/Comfort Care Code Status Assessed: No Code Status: Full Code Physician Review: Patient Assessed, Agree with Above Assessment and Plan Critical Care: Yes Time Spent Managing Pts Care (In Minutes): 25
[2017-09-20] MEDS ORDERED: ACETYLCYST 20% 4 ML VIAL IH ONE (10:00)
[2017-09-20 10:10] LABS: Arterial Blood Carboxyhemoglob 2.6 % (0-1.5); Blood Gas Oxyhemoglobin 88.1 % (94-97); Blood O2 Saturation 90.8 % (92-98.5)
[2017-09-20] MEDS ORDERED: IPRATROPIUM BROM 0.5MG/2.5ML NEB ONE (10:19)
--- NOTE | 2017-09-20 11:26 | RAD REPORT ---
EXAM DESCRIPTION: RAD - Chest Single View - 09/20/2017 8:50 am CLINICAL HISTORY: crackles Chest pain. COMPARISON: Chest Single View dated 09/15/2017; Chest Single View dated 08/08/2017; Chest Single View d ated 08/07/2017; Chest Single View dated 08/06/2017 FINDINGS: Portable technique limits examination quality. Vague opacities in the left retrocardiac region are noted, probably atelectasis. The heart is mildly prominent size with a dual lead pacer/ defibrillator device. Hardware is present both proximal humeri . IMPRESSION: Mild vague left basilar opacities are noted probably atelectasis or related to aspiratio n.
--- NOTE | 2017-09-20 11:40 | PN ---
Mr. Valenzuela is in sinus rhythm. He is looking more and more ill. The patient is waiting a hospice [facility] [place]. He will probably be transferred to hospice later today. He is uncomfortable and having pain and has agreed to receive a narcotic to help with his level of comfort. We will prescribe fentanyl. He does not report an allergy to fentanyl. Some other narcotics have been difficult for him, so we will give it a try. TERE/VERO Voice ID: [id number] Report ID: [id number]
--- NOTE | 2017-09-20 11:55 | PN ---
Subjective: Nicolas is doing okay. Kind of chunky this morning. Urine output will be sent. Objective: Vital Signs: Afebrile. Stable. Urine output was 475 over shift. Latest lab shows creatinine elevated at 3, BUN elevated at 83. Assesment: Urinary retention / Acute Renal Failure on Chronic Plan: chronic negron. Nephrology on case: prerenal versus renal. PB/VERO Voice ID: [id number] Report ID: [id number] MTDD
--- NOTE | 2017-09-20 13:14 | PN ---
Date of Progress Note: 09/20/2017 Chief Complaint: Acute kidney injury. History Of Present Illness: Acute kidney injury, severe, progressively worse, nonoliguric, BUN is up to 83, creatinine 3.0. The patient was found to have urosepsis, was started on antibiotics and the patient today appears to be in respiratory distress. Chest x-ray showed pulmonary edema. The patient has BiPAP and Lasix. IV fluids were started for hypotension. Systolic blood pressure remains in 90'. The patient developed atrial fibrillation. Cardiology consultation was obtained. Troponin level is pending. Review of Systems: Unobtainable. General: The patient is in [id number] respiratory distress Lungs: Crackles bilaterally. Heart: S1, S2. Abdomen: Soft and benign. Extremities: Slight edema. Laboratory Data: Sodium 155, potassium 4.6, chloride 100, CO2 23, creatinine 3.0, glucose 294, calcium 8.1, phosphorus 3.5. Impression And Plan: Acute kidney injury. The patient has underlying chronic kidney disease, stage 3. Serum creatinine has been accelerating from 2.2 to 3.0 over last several days. Baseline creatinine is 1.5. The patient has diabetic kidney disease and he was found to have complicated urinary tract infection, urosepsis. The patient has respiratory failure and congestive heart failure with systolic dysfunction. The patient has severe cardiorenal syndrome. Continue Lasix. The patient may be a candidate for hospice. I spoke with Dr. Choudhury and according to Cardiology, the patient is a candidate for hospice, who is critically-ill. Family currently is considering hospice on the patient. I spent total 36 min including 25 min to coordinate care plan. Case was reviwed with family at bed site and with Attending and patient's nurse. GUADALUPE/VERO Voice ID: [id number] Report ID: [id number] RUAP
[2017-09-20] MEDS: MEDIHONEY 44 ML TOPICAL TUBE TOP SCH (15:21)
[2017-09-20] MEDS: ENOXAPARIN 30 MG/0.3 ML SQ SCH (17:11)
[2017-09-20 21:36] LABS: Albumin, (SPE) 2.3 g/dL (3.8-4.8); Alpha-1-Globulins 0.4 g/dL (0.2-0.3); Alpha-2-Globulins 0.6 g/dL (0.5-0.9); Gamma Globulins 0.9 g/dL (0.8-1.7); INTERPRETATION REPORT
[2017-09-21] MEDS: CARVEDILOL 3.125 MG TAB PO SCH ×2 (05:19→16:24)
[2017-09-21 05:36] LABS: Albumin 2.1 g/dL (3.4-5.0); Phosphorus 3.8 mg/dL (2.5-4.9); Potassium 4.4 mmol/L (3.5-5.1)
[2017-09-21] MEDS: PANTOPRAZOLE 40MG TABLET PO SCH (06:08)
[2017-09-21 07:59] VITALS: O2SAT 94
[2017-09-21] MEDS: MIDODRINE HCL 5 MG TABLET PO SCH ×2 (08:58→13:46)
[2017-09-21] MEDS: INSULIN -REGULAR HUMAN 50 UNIT/0.5 ML ML SQ SCH ×3 (08:58→16:23)
[2017-09-21] MEDS: AMIODARONE HCL 200 MG TAB PO SCH (08:59)
[2017-09-21] MEDS: JUVEN PACKET PO SCH (09:00)
[2017-09-21] MEDS: MEDIHONEY 44 ML TOPICAL TUBE TOP SCH (09:05)
[2017-09-21] MEDS: DOXYCYCLINE 100 MG in NA CHLORIDE 0.9% 100 ML IVPB SCH (10:22)
--- NOTE | 2017-09-21 10:53 | PN ---
Subjective: The patient is resting. Laboratory Data: Creatinine and BUN up to 105 and 4.5. Assessment: The patient is very ill, worsening renal function. Plan: The patient is on hospice. POOJA/VERO Voice ID: [id number] Report ID: [id number] MTDD
--- NOTE | 2017-09-21 11:14 | P.PN ---
Subjective Date of Service: 09/21/17 Primary Care Provider: Kei Chief Complaint: acute on chronic renal failure Subjective: Worsening (creatine, obtunded and on a bipap) Review of Systems is unable to be obtained Physical Examination - Vital Signs Temperature: 96.9 F Blood Pressure: 86/39 Pulse: 105 Respirations: 26 Pulse Ox (%): 93 - Physical Exam General: Unresponsive (on bipap) HEENT: Atraumatic, PERRLA, EOMI Neck: Supple, JVD not distended Respiratory: Clear to auscultation bilaterally, Normal air movement Cardiovascular: Regular rate/rhythm, Normal S1 S2 Gastrointestinal: Normal bowel sounds, No tenderness Musculoskeletal: No tenderness Integumentary: No rashes Neurological: Normal speech, Normal tone, Normal affect Lymphatics: No axilla or inguinal lymphadenopathy - Studies Microbiology Data (last 24 hrs): 09/15/17 09:09 Blood - Blood Aerobic Blood Culture - Final No growth in 5 days. 09/15/17 09:09 Blood - Blood Anaerobic Blood Culture - Final No growth in 5 days. Assessment & Plan - Problems (Diagnosis) (1) End of life care Current Visit: Yes Status: Acute Plan: Patient is worsening. Awaiting hospice in [place]. However do not think the patient would survive long off the bipap. Have called Mrs Ewing. Have asked if she would liket to come with the family. With the family's permission would like to remove the bipap. Let the patient pass. He will most likely pass away in the next few days. At this point the bipap is most likely prolonging his pain. We wish him and his family the best of luck (2) Acute on chronic kidney failure Onset Date: 08/07/17 Current Visit: No Status: Acute Plan: Improved diuresis. Will await the work up for henoch andre purpuria, continue steroids and diuresis Qualifiers: Acute renal failure type: unspecified Chronic kidney disease stage: stage 4 (severe) Qualified Code(s): N17.9 - Acute kidney failure, unspecified; N18.4 - Chronic kidney disease, stage 4 (severe) (3) Diabetes 1.5, managed as type 1 Onset Date: 09/17/17 Current Visit: Yes Status: Acute Plan: Will put him on sliding scale insulin (4) Urinary (tract) obstruction Onset Date: 09/17/17 Current Visit: Yes Status: Acute Plan: Consult to Dr. Dan who initially placed the negron (5) CHF (congestive heart failure) Onset Date: 09/17/17 Current Visit: Yes Status: Chronic Plan: Will try to improve kidney function and diuresis the patient appropriated.Postive dullness on the dependent portions. Qualifiers: Heart failure type: systolic (6) Pressure ulcer Current Visit: Yes Status: Acute Plan: Will continue wound care. We can follow him up in the wound care center on discharge. Qualifiers: Pressure injury location: contiguous region involving back and buttock Pressure injury stage: stage 2 Laterality: unspecified laterality Qualified Code(s): L89.42 - Pressure ulcer of contiguous site of back, buttock and hip, stage 2 Discharge Plan: Other Plan to discharge in: 24 Hours - Code Status/Comfort Care Code Status Assessed: Yes Code Status: Do Not Resuscitate Comfort Measures: Palliative Care Physician Review: Patient Assessed, Agree with Above Assessment and Plan ( discussed with daughter) Critical Care: Yes Time Spent Managing Pts Care (In Minutes): 30
[2017-09-21] MEDS ORDERED: MORPHINE 4 MG/ML SYR IV PRN (12:11)
[2017-09-21 13:32] VITALS: BP 100/45; TEMP 97.5
[2017-09-21] MEDS: ENOXAPARIN 30 MG/0.3 ML SQ SCH (16:23)
--- NOTE | 2017-09-21 18:13 | PN ---
Date of Progress Note: 09/21/2017 Chief Complaint: The patient is critically-ill. He has complicated urinary tract infection with multidrug-resistant microbial agent. He has acute kidney injury. Blood culture showed no growth over last 5 days. The patient has respiratory failure. He was on BiPAP and developed atrial fibrillation. Cardiology was seeing the patient and felt that he is a candidate for hospice and family is requesting hospice. Renal function has deteriorated over the last several days. I spoke with this family. The family do not want to proceed with dialysis. BUN is 105 and creatinine is 4.5. Review of Systems: Unobtainable. The patient is lethargic and medicated for pain. Lungs: Few crackles at bases. Heart: S1,S2. Abdomen: Soft. Extremities: Edema present. Laboratory Data: Sodium 147, potassium 4.4, chloride 101, CO2 22, BUN 105, creatinine 4.5, calcium 8.1. Impression And Plan: Acute kidney injury, severe, progressively worse and with azotemia. The patient became more lethargic. He is also treated with fentanyl for pain and to control shortness of breath. The patient became hypotensive. Today's blood pressure is 78/53. The patient' s family do not want to use pressors. The patient has DNR status and they are considering hospice status as well. Some medication already started by Dr. Choudhury as a part of the Comfort Care protocol. Pressure ulcers. Antibiotics, wound care per primary. Congestive heart failure with systolic dysfunction, severe. Cardiorenal syndrome. The patient does not respond to diuretics and urine output has been declining secondary to hypotension with low perfusion to the kidneys related to cardiorenal syndrome and hypotension with sepsis setting. Prognosis is very poor. I spoke with the family, they are requesting hospice and they do not want heroic measures. They definitely do not want to proceed with dialysis. They understand that due to all of the comorbidities, the patient has high risk of . I spent total 36 min including 26 min to coordinate care plan. GUADALUPE/VERO Voice ID: [id number] Report ID: [id number] MTDD
--- NOTE | 2017-09-22 09:09 | P.DS ---
Admission Date: 09/15/17 Discharge Date: 09/21/17 Primary Care Provider: Kei Disposition: HOSPICE-MEDICAL FACILITY Discharge Condition: Reason for Admission: acute on chronic renal failure - Problems (1) End of life care Status: Acute (2) Acute on chronic kidney failure Onset Date: 08/07/17 Status: Acute Qualifiers: Acute renal failure type: unspecified Chronic kidney disease stage: stage 4 (severe) Qualified Code(s): N17.9 - Acute kidney failure, unspecified; N18.4 - Chronic kidney disease, stage 4 (severe) (3) Diabetes 1.5, managed as type 1 Onset Date: 09/17/17 Status: Acute (4) Urinary (tract) obstruction Onset Date: 09/17/17 Status: Acute (5) CHF (congestive heart failure) Onset Date: 09/17/17 Status: Chronic Qualifiers: Heart failure type: systolic (6) Pressure ulcer Status: Acute Qualifiers: Pressure injury location: contiguous region involving back and buttock Pressure injury stage: stage 2 Laterality: unspecified laterality Qualified Code(s): L89.42 - Pressure ulcer of contiguous site of back, buttock and hip, stage 2 Brief History of Present Illness: Patient is here from the custodial. He has been having decreased urine output. Yesterday he had swelling and bruising of his upper extremities. He was found to be hypotensive and was sent to the ER. Was found to have a decrease of his gfr. His baseline gfr is in the 50's The patient was swollen and had some shortness of breath. Hospital Course: Patient was admitted for renal failure and uti. The patient was slowly improving. The patient started having atrial fib. He started having worsen creatine. Had a family meeting. He was already a DNR from [place]. The family states that he has been saying he wants to pass away. The patient was admitted into hospice. relatively quickly. We wish his family the best in the future. Vital Signs/Physical Exam: Temp Pulse Resp BP Pulse Ox 97.5 F 101 H 20 100/45 L 96 09/21/17 12:00 09/21/17 12:00 09/21/17 12:00 09/21/17 12:00 09/21/17 12:00 Laboratory Data at Discharge: WBC 10.1 K/uL (4.3-10.9) D 09/16/17 05:25 Hgb 8.8 g/dL (13.6-17.9) L D 09/16/17 05:25 Hct 25.7 % (39.6-49.0) L D 09/16/17 05:25 Plt Count 241 K/uL (152-406) D 09/16/17 05:25 PT 21.8 SECONDS (9.5-12.5) H 09/17/17 04:50 INR 1.84 09/17/17 04:50 APTT 31.7 SECONDS (24.3-36.9) 09/17/17 04:50 Sodium 137 mmol/L (136-145) 09/21/17 05:08 Potassium 4.4 mmol/L (3.5-5.1) 09/21/17 05:08 BUN 105 mg/dL (7-18) H D 09/21/17 05:08 Creatinine 4.50 mg/dL (0.55-1.3) H D 09/21/17 05:08 Glucose 228 mg/dL (74-106) H 09/21/17 05:08 Uric Acid 6.9 mg/dL (3.5-7.2) 09/16/17 01:40 Phosphorus 3.8 mg/dL (2.5-4.9) 09/21/17 05:08 Magnesium 2.2 mg/dL (1.8-2.4) 09/15/17 08:37 Total Bilirubin 0.5 mg/dL (0.2-1.0) 09/15/17 08:37 AST 21 U/L (15-37) 09/15/17 08:37 ALT 14 U/L (12-78) 09/15/17 08:37 Alkaline Phosphatase 49 U/L (45-117) 09/15/17 08:37 Troponin I 0.03 ng/mL (0.0-0.045) 09/15/17 17:34 Home Medications: Carvedilol [Coreg] 25 mg PO DAILY 07/22/17 Furosemide [Lasix] 80 mg PO BID 07/22/17 Gabapentin [Gralise] 300 mg PO TID 07/22/17 Metoclopramide HCl [Reglan] 10 mg PO Q4H PRN 07/22/17 Spironolactone [Aldactone] 50 mg PO DAILY 07/22/17 Allopurinol [Zyloprim*] 100 mg PO DAILY 08/07/17 Apixaban [Eliquis] 5 mg PO BID 08/07/17 Docusate [Colace Cap*] 100 mg PO BID 08/07/17 Insulin Aspart [Novolog Flexpen] See Protocol SQ ACHS 08/07/17 Mag Hydroxide 8% [Milk Of Magnesia*] 30 ml PO DAILY 08/07/17 Omeprazole [Prilosec] 40 mg PO DAILY 08/07/17 Acetaminophen [Tylenol -Tablet] 650 mg PO TID 09/08/17 Acetic Acid 0.25% [Acetic Acid 0.25%*] 1 amee TOP DAILY 09/08/17 Arginine/Ascorbate Sod/Juan Jose AC [Arginaid Powder] 1 packet PO BID 09/08/17 Ascorbic Acid [Vitamin C] 500 mg PO BID 09/08/17 Collagenase [Santyl Ointment*] 1 amee TOP DAILY 09/08/17 Insulin Detemir [Levemir*] 12 units SQ BIDWM 09/08/17 Metformin HCl [Glucophage] 500 mg PO DAILY WITH BREAKFAST 09/08/17 Multivitamin [Multiple Vitamins] 1 each PO DAILY 09/08/17 Zinc Sulfate [Zinc Sulfate*] 220 mg PO BID 09/08/17 Time spent managing pt's care (in minutes): 45
== END 2017-09-21 16:32 | disposition hospice, inpatient (51) | DRG 682 ==
LOC: ER 07:30 → ERHOLD 10:30 → 4TH 16:43
PROVIDERS: ADMIT Internal Medicine; ATTEND Internal Medicine
PROC: 06HN33Z Insertion of Infusion Device into Left Femoral Vein, Percutaneous Approach (ICD-10-PCS; principal; 2017-09-15)
PROC: 5A09357 Assistance with Respiratory Ventilation, Less than 24 Consecutive Hours, Continuous Positive Airway Pressure (ICD-10-PCS; 2017-09-20)
DX: N17.9 Acute kidney failure, unspecified (principal); J96.90 Respiratory failure, unspecified, unspecified whether with hypoxia or hypercapnia; G93.40 Encephalopathy, unspecified; N39.0 Urinary tract infection, site not specified; I13.0 Hypertensive heart and chronic kidney disease with heart failure and stage 1 through stage 4 chronic kidney disease, or unspecified chronic kidney disease; I50.22 Chronic systolic (congestive) heart failure; K92.2 Gastrointestinal hemorrhage, unspecified; D69.0 Allergic purpura; R18.8 Other ascites; I48.92 Unspecified atrial flutter; N13.8 Other obstructive and reflux uropathy; E11.22 Type 2 diabetes mellitus with diabetic chronic kidney disease; N18.4 Chronic kidney disease, stage 4 (severe); L89.42 Pressure ulcer of contiguous site of back, buttock and hip, stage 2; I95.9 Hypotension, unspecified; I48.91 Unspecified atrial fibrillation; Z66 Do not resuscitate; Z51.5 Encounter for palliative care; R33.9 Retention of urine, unspecified; I25.10 Atherosclerotic heart disease of native coronary artery without angina pectoris; R62.7 Adult failure to thrive; D69.6 Thrombocytopenia, unspecified; E78.5 Hyperlipidemia, unspecified; G89.29 Other chronic pain; D50.0 Iron deficiency anemia secondary to blood loss (chronic); E11.40 Type 2 diabetes mellitus with diabetic neuropathy, unspecified; Z79.01 Long term (current) use of anticoagulants; Z88.5 Allergy status to narcotic agent; Z79.4 Long term (current) use of insulin; Z95.5 Presence of coronary angioplasty implant and graft; Z88.0 Allergy status to penicillin; Z95.0 Presence of cardiac pacemaker; Z16.24 Resistance to multiple antibiotics; N40.1 Benign prostatic hyperplasia with lower urinary tract symptoms
CPT/HCPCS: 36415; 71045; 76770; 80048; 80069; 80076; 80202; 81003; 81015; 82550; 82553; 82570; 82607; 82728; 82746; 82805; 82962; 83520; 83540; 83605; 83735; 83880; 83970; 84145; 84156; 84165; 84443; 84466; 84484; 84550; 85025; 85044; 85610; 85652; 85730; 86021; 86038; 86147; 86160; 86225; 86235; 86317; 86430; 86704; 86706; 87040; 87077; 87086; 87088; 87186; 87340; 87389; 87493; 87522; 93005; 93306; 93970; 94640; 94660; 96374; 99285; J1650; J1940; J2405; J2550; J2916; J3010; P9047

== ENCOUNTER 2017-09-21 16:28 | Inpatient (IN) | payer OTHER ==
--- OUTSIDE RECORDS SUMMARY | 2017-09-21 16:51 | XMS REPORT | Clinical Summary ---
:1940 Author Organization [facility] Address [address] [place] [address] Care Team Providers Name Role Phone Asked, [...] INFLUENZA VACCINE 09/10/2017 Results Not on fileafter 09/20/2016 Insurance Payer Benefit Plan / Group Subscriber ID Type Phone Address [employer]ARM INS [employer] INS xxxxxxxxxxxx Commercial MEDICARE MEDICARE PART A AND B xxxxxxxxxx Medicare [place], [place] Home: [phone] [place], [place] [id number]
[2017-09-21] MEDS ORDERED: LORazepam 2 MG/ML VIAL IV PRN (18:05)
--- NOTE | 2017-09-21 18:14 | P.HP ---
Certification for Inpatient Patient admitted to: Inpatient With expected LOS: >2 Midnights Patient will require the following post-hospital care: Hospice Practitioner: I am a practitioner with admitting privileges, knowledge of patient current condition, hospital course, and medical plan of care. Services: Services provided to patient in accordance with Admission requirements found in Title 42 Section 412.3 of the Code of Federal Regulations Patient History Date of Service: 09/21/17 Reason for admission: CALLED IN FOR HOSPICE ADMISSION History of Present Illness: MR. LINARES HAS BEEN IN HOSPITAL FOR A FEW ADMISSIONS IN LAST 3 MONTHS FOR GRADUAL DECLINE OF CONDITION. I REVIEWED HIS RECORDS. ON LAST ADMISSION HE HAS HAD WORSE RENAL FAILURE, CHF, AND LARGE BLOOD FILLED BULLAE ALL OVER HIS BODY MAINLY DISTALLY. Allergies codeine [Codeine] Allergy (Mild, Verified 07/21/17 21:57) Itching/Hives/Rash hydrocodone [Hydrocodone] Allergy (Mild, Verified 08/07/17 02:25) Itching/Hives/Rash morphine Allergy (Mild, Verified 08/07/17 02:25) Itching/Hives/Rash oxycodone [Oxycodone] Allergy (Mild, Verified 08/07/17 02:25) Itching/Hives/Rash Penicillins Allergy (Mild, Verified 08/07/17 02:25) Itching/Hives/Rash iodine Allergy (Verified 09/17/17 07:53) Unknown meperidine [From Demerol] Allergy (Verified 09/17/17 07:53) Unknown Hydrocodone Allergy (Uncoded 09/17/17 07:53) Unknown Hydrocodone-Alexi Allergy (Uncoded 09/17/17 07:53) Unknown Home Medications: Carvedilol [Coreg] 25 mg PO DAILY 07/22/17 Furosemide [Lasix] 80 mg PO BID 07/22/17 Gabapentin [Gralise] 300 mg PO TID 07/22/17 Metoclopramide HCl [Reglan] 10 mg PO Q4H PRN 07/22/17 Spironolactone [Aldactone] 50 mg PO DAILY 07/22/17 Allopurinol [Zyloprim*] 100 mg PO DAILY 08/07/17 Apixaban [Eliquis] 5 mg PO BID 08/07/17 Docusate [Colace Cap*] 100 mg PO BID 08/07/17 Insulin Aspart [Novolog Flexpen] See Protocol SQ ACHS 08/07/17 Mag Hydroxide 8% [Milk Of Magnesia*] 30 ml PO DAILY 08/07/17 Omeprazole [Prilosec] 40 mg PO DAILY 08/07/17 Acetaminophen [Tylenol -Tablet] 650 mg PO TID 09/08/17 Acetic Acid 0.25% [Acetic Acid 0.25%*] 1 amee TOP DAILY 09/08/17 Arginine/Ascorbate Sod/Juan Jose AC [Arginaid Powder] 1 packet PO BID 09/08/17 Ascorbic Acid [Vitamin C] 500 mg PO BID 09/08/17 Collagenase [Santyl Ointment*] 1 amee TOP DAILY 09/08/17 Insulin Detemir [Levemir*] 12 units SQ BIDWM 09/08/17 Metformin HCl [Glucophage] 500 mg PO DAILY WITH BREAKFAST 09/08/17 Multivitamin [Multiple Vitamins] 1 each PO DAILY 09/08/17 Zinc Sulfate [Zinc Sulfate*] 220 mg PO BID 09/08/17 - Past Medical/Surgical History Diabetic: Yes -: CAD -: HTN -: DM II -: Chronic pain has pain pump -: Hyperlipidemia -: DM Neuropathy -: Gout -: Osteoarthritis -: pacemaker -: A-fibb -: 08/2017 rectal bleed -: stage 3 kidney disease -: sx for pain pump insertion -: shoulder replacement BL -: L Knee replacement -: appendectemy -: CARDIAC STENTS -: PACEMAKER Psychosocial/ Personal History: , 3 children, Retired - Family History Father -: Lung disease, Cancer Mother -: Heart disease, Hypertension, Kidney disease Sister -: Heart disease - Social History Alcohol use: No CD- Drugs: No Caffeine use: No Review of Systems is unable to be obtained Physical Examination - Physical Exam General: Unresponsive, Comatose, Obese Respiratory: Crackles/rales, Rhonchi/gurgles, Other (RAPID BREATHING.) Cardiovascular: Regular rate/rhythm Assessment and Plan - Problems (Diagnosis) (1) ESRF (end stage renal failure) Current Visit: Yes Status: Acute Plan: MULTI FACTORIAL HE HAS RENAL FAILURE FROM DM, CHF. 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 SAWYER NOTES. IN ANY CASE HE WILL NOT LIVE MORE THAN A DAY OR TWO HE IS ALREADY SHOWING SIGNS OF DEEP RESPIRATORY MOVEMENTS. I HAD LONG DISCUSSION WITH GD AND DAUGHTER ABOUT HOW WE WILL KEEP HIM COMFORTABLE. ALL ORDERS WRITTEN [facility] NURSE IS ALSO HERE AT BED SIDE. (2) Terminal care Current Visit: Yes Status: Acute - Advance Directives Does patient have a Living Will: No Does patient have a Durable POA for Healthcare: No
[2017-09-21] MEDS ORDERED: SCOPOLAMINE HYDROBROMIDE PATCH TD SCH (18:30)
[2017-09-21 21:23] VITALS: BP 109/60; TEMP 98.1
[2017-09-21 21:33] VITALS: O2SAT 76; BMI 29.4
[2017-09-21] MEDS: FENTANYL CITR 100 MCG/2 ML IV PRN ×2 (22:04→23:56)
--- NOTE | 2017-09-22 18:17 | P.DS ---
Admission Date: 09/21/17 Discharge Date: 09/22/17 Disposition: Discharge Condition: Reason for Admission: CALLED IN FOR HOSPICE ADMISSION - Problems (1) ESRF (end stage renal failure) Onset Date: 09/22/17 Status: Acute (2) Terminal care Onset Date: 09/22/17 Status: Acute Brief History of Present Illness: MR. LINARES HAS BEEN IN HOSPITAL FOR A FEW ADMISSIONS IN LAST 3 MONTHS FOR GRADUAL DECLINE OF CONDITION. I REVIEWED HIS RECORDS. ON LAST ADMISSION HE HAS HAD WORSE RENAL FAILURE, CHF, AND LARGE BLOOD FILLED BULLAE ALL OVER HIS BODY MAINLY DISTALLY. MR. LINARES WAS ON HOSPICE FOR END STAGE RENAL FAILURE ABOVE. HE WITHIN A DAY FRM ACUTE RENAL FAILURE AND MULTIPLE OTHER ISSUES. Vital Signs/Physical Exam: Temp Pulse Resp BP Pulse Ox 98.1 F 107 H 27 H 109/60 76 L 09/21/17 20:00 09/21/17 20:00 09/21/17 20:00 09/21/17 20:00 09/21/17 20:00 Home Medications: Carvedilol [Coreg] 25 mg PO DAILY 07/22/17 Furosemide [Lasix] 80 mg PO BID 07/22/17 Gabapentin [Gralise] 300 mg PO TID 07/22/17 Metoclopramide HCl [Reglan] 10 mg PO Q4H PRN 07/22/17 Spironolactone [Aldactone] 50 mg PO DAILY 07/22/17 Allopurinol [Zyloprim*] 100 mg PO DAILY 08/07/17 Apixaban [Eliquis] 5 mg PO BID 08/07/17 Docusate [Colace Cap*] 100 mg PO BID 08/07/17 Insulin Aspart [Novolog Flexpen] See Protocol SQ ACHS 08/07/17 Mag Hydroxide 8% [Milk Of Magnesia*] 30 ml PO DAILY 08/07/17 Omeprazole [Prilosec] 40 mg PO DAILY 08/07/17 Acetaminophen [Tylenol -Tablet] 650 mg PO TID 09/08/17 Acetic Acid 0.25% [Acetic Acid 0.25%*] 1 amee TOP DAILY 09/08/17 Arginine/Ascorbate Sod/Juan Jose AC [Arginaid Powder] 1 packet PO BID 09/08/17 Ascorbic Acid [Vitamin C] 500 mg PO BID 09/08/17 Collagenase [Santyl Ointment*] 1 amee TOP DAILY 09/08/17 Insulin Detemir [Levemir*] 12 units SQ BIDWM 09/08/17 Metformin HCl [Glucophage] 500 mg PO DAILY WITH BREAKFAST 09/08/17 Multivitamin [Multiple Vitamins] 1 each PO DAILY 09/08/17 Zinc Sulfate [Zinc Sulfate*] 220 mg PO BID 09/08/17
== END 2017-09-22 05:05 | disposition expired | DRG 951 ==
LOC: 4TH 16:28
PROVIDERS: ADMIT Internal Medicine; ATTEND Internal Medicine
DX: Z51.5 Encounter for palliative care (principal); N18.6 End stage renal disease; R40.20 Unspecified coma; I13.2 Hypertensive heart and chronic kidney disease with heart failure and with stage 5 chronic kidney disease, or end stage renal disease; D69.0 Allergic purpura; I50.9 Heart failure, unspecified; Z79.01 Long term (current) use of anticoagulants; Z79.4 Long term (current) use of insulin; E11.22 Type 2 diabetes mellitus with diabetic chronic kidney disease; Z66 Do not resuscitate
CPT/HCPCS: J3010